=== PATIENT | female | born 1965 | race Caucasian/White ===

== ENCOUNTER 2023-05-26 14:40 | Inpatient (IN) ==
[2023-05-26 16:00] LABS: Basophils # (auto) 0.09 K/uL (0.00-0.20); Eosinophils # (auto) 0.12 K/uL (0.00-0.50); Eosinophils % (auto) 1.3 %; Hematocrit (blood only) 28.7 % (37.0-47.0); Hemoglobin 9.8 g/dl (12.0-16.0); Immature Granulocytes # (auto) 0.07 K/uL (0.01-0.20); Immature Granulocytes % (auto) 0.7 %; Lymphocytes # (auto) 1.41 K/uL (1.20-3.40); Lymphocytes % (auto) 15.1 %; Mean Corpuscular Hemoglobin 35.1 pg (25.0-34.0); Mean Corpuscular Hgb Conc 34.1 g/dL (32.0-36.0); Mean Corpuscular Volume 102.9 fL (80.0-100.0); Mean Platelet Volume 9.9 fL (9.4-12.4); Monocytes % (auto) 8.5 %; Neutrophils # (auto) 6.87 K/uL (1.40-6.50); Neutrophils % (auto) 73.4 %; Platelet Count 159 K/uL (130-400); RDW Coefficient of Variation 22.5 % (11.5-14.5); RDW Standard Deviation 82.3 fL (36.4-46.3); Red Blood Count 2.79 M/uL (4.20-5.40); White Blood Count 9.36 K/ul (4.8-10.8)
[2023-05-26 16:18] LABS: Target Cells 2+
[2023-05-26 16:33] LABS: Albumin Globulin Ratio 0.8 (0.9-2); Albumin Level 2.8 gm/dl (3.4-5.0); BUN Creatinine Ratio 4.2 (10-20); Calcium 8.5 mg/dl (8.6-10.3); Est GFR (African American) 76.6 ml/min; Est GFR (Non-African American) 66.1 ml/min; Globulin 3.3 gm/dl (2.5-4.0); Potassium 2.9 mmol/L (3.5-5.1); Total Protein 6.1 gm/dl (6.0-8.3)
[2023-05-26] MEDS ORDERED: SODIUM CHLORIDE 0.9% 1,000 ML IV ONE (19:29)
--- NOTE | 2023-05-26 19:36 | Emergency Department Note ---
Impression & Plan Weakness, Elevated bilirubin, Elevated INR, Anemia, Acute hypokalemia, Fall ED Provider Note NAME: SAWYER WEST AGE: 57 SEX: F : 1965 ARRIVES VIA: Walk-In INFORMANT: Patient ED PROVIDER(S): Michael Dumont DO CHIEF COMPLAINT: Weakness and fall HPI: Patient is a 57-year-old female who presents ER for weakness. She notes she has been very weak since this past weekend. She notes that she has been very weak and lightheaded over the past several days. She did fall and grazed her head and her right shoulder. She notes that she does drink alcohol about 3 times a week and generally has about 2-3 beers. Denies any chest pain or shortness of breath. No belly pain, nausea, vomiting, or diarrhea. No dysuria, urgency, or frequency. Does admit to feeling very weak and rundown. PAST MEDICAL HISTORY:See Below PAST SURGICAL HISTORY:See Below FAMILY HISTORY:See Below SOCIAL HISTORY:See Below HOME MEDICATIONS:See Below ALLERGIES:See Below VITALS:See Below PHYSICAL EXAMINATION: GENERAL: alert, well appearing, well nourished, no distress, non-toxic HEAD: normal cephalic, atraumatic EYE EXAM: normal conjunctiva, PERRL and EOM's grossly intact OROPHARYNX: no exudate, no erythema, lips, buccal mucosa, and tongue normal and mucous membranes are moist NECK: supple, no nuchal rigidity, no adenopathy, non-tender CHEST: stable to compression anteriorly and posteriorly with exception of bruising over the right shoulder and right scapula LUNGS: clear to auscultation. Normal chest wall mechanics HEART: no murmurs, S1 normal and S2 normal ABDOMEN: abdomen soft, non-tender, normo-active bowel sounds, no masses, no rebound or guarding. PELVIS: stable to compression anteriorly and posteriorly BACK: Back is symmetrical on inspection and there is no deformity, no midline tenderness, no CVA tenderness. UPPER EXTREMITIES: full active and passive range of motion of all joints without tenderness to palpation with the exception of the right humeral head with minimal tenderness LOWER EXTREMITIES: full active and passive range of motion of all joints without tenderness to palpation NEURO EXAM: Normal sensorium, cranial nerves II-XII grossly intact, normal speech, no gross weakness of arms, no gross weakness of legs. GCS: 15. MEDICAL DECISION MAKING: Patient is a 57-year-old female who presents ER for above-stated complaint. IV was established blood work was obtained. External records reviewed and Helga for lab work. Labs show no significant leukocytosis. Mild anemia 9.8 down from baseline of 12.5. INR slightly up at 1.8. BMP with mild hypokalemia 2.9. T. bili at 9 with a direct bili of 5. AST and ALT at [address] of the head, cervical spine, chest abdomen pelvis shows small amount of free fluid in the pelvis. Do favor that this likely ascites based on the read and abnormalities within the labs. Rectal was heme-negative. Patient was updated bedside. She was given IV potassium. Discussed with the hospitalist for further evaluation management treatment. Triage Nursing notes reviewed. Limited review of prior medical records performed Vital Signs: reviewed and remarkable for no significant abnormalities Differential diagnosis: Infection, dehydration, metabolic abnormality, hypo/hyperglycemia, electrolyte disturbance, anemia, hypoxia, cardiac sources, intracerebral event, toxicologic, neurologic, as well as other pathologies. ER treatment provided: See below Diagnostics interpreted by me include EKG and cardiac monitoring as listed below: -Cardiac Monitoring: An order was placed for continuous cardiac monitoring. The monitor shows a rate of 80 with sinus rhythm. -ECG: Sinus rhythm rate 81 Normal axis No PVCs QTc 466 -Laboratory studies:Interpreted by me as stated above in MDM and shown below. Imaging studies: Xrays: As interpreted by me:none CTs show: CT of the chest per my read showed no hemothorax CT of the head, cervical spine, chest abdomen pelvis was fairly unremarkable per radiology Consultation(s): As described in MDM Procedures:none Critical Care: None Past Med/Surg History Medical History Bacterial vaginosis Chronic migraine without aura or status migrainosus Depression with anxiety Dysmenorrhea Hypertension Menorrhagia Migraine with aura and without status migrainosus, not intractable Surgical History S/P endometrial ablation S/P hysterectomy with oophorectomy Family History Mother Migraine headache Social History Smoking Status: Current every day smoker Tobacco Type: E-cigarettes / Vaping Feels Safe at Home: Yes Allergies Allergies Allergy/AdvReac Type Severity Reaction Status Date / Time gabapentin AdvReac Intermediate Confusion Verified 05/26/23 19:18 sumatriptan [From Imitrex] AdvReac Intermediate periphel Verified 05/26/23 19:18 neuropathic symptoms zolmitriptan [From Zomig] AdvReac Intermediate periphel Verified 05/26/23 19:18 numbness and tingling Home Meds Home Medications Medication Instructions Recorded Confirmed fluoxetine 20 mg capsule 20 mg PO HS 11/06/20 05/26/23 ondansetron 4 mg disintegrating 4 mg PO DAILY PRN nausea and 02/10/23 05/26/23 tablet vomiting atenolol 100 mg tablet 100 mg PO HS 05/26/23 05/26/23 topiramate 150 mg capsule 150 mg PO HS 05/26/23 05/26/23 sprinkle,extended release 24 hr Previous Rx's Medication Instructions Recorded CPAP Machine #1 ea 08/06/22 ovgqccqvai-dqczxndefbzsi-ecombjjw 1 cap PO DAILY PRN headache #10 02/16/23 50 mg-300 mg-40 mg capsule caps rimegepant 75 mg disintegrating 75 mg PO ONCE PRN migraine 02/16/23 tablet (Nurtec ODT) headache #8 tabs onabotulinumtoxinA 200 unit See Rx Instructions IM .COMPLEX #1 04/01/23 solution for injection (Botox) ea amitriptyline 25 mg tablet 25 mg PO HS #30 tabs 05/21/23 Results & Data (ED) Vital Signs Vital Signs - 24 hr 05/26/23 14:48 05/26/23 18:50 05/26/23 18:53 Temperature 36.9 C Temperature Source Temporal Artery Scan Pulse Rate 86 Pulse Rate [Apical] 77 Pulse Rhythm [Apical] Regular Respiratory Rate 18 16 Respiratory Effort / Characteristics Non-Labored Spontaneous Non-Labored Respiratory Depth Normal Normal Respiratory Pattern Regular Blood Pressure 92/58 L Blood Pressure [Left Arm] 102/63 Blood Pressure Mean 69 Blood Pressure Mean [Left Arm] 76 Blood Pressure Position Sitting Pulse Oximetry 98 99 99 Oxygen Delivery Method Room Air Room Air Room Air Sepsis Recent Fever Within 48 Hours No Sepsis New/Unexplained Change in Mental Status N/A Sepsis Action Taken by Nursing No Action Required 05/26/23 18:52 05/26/23 18:52 05/26/23 19:39 Temperature Temperature Source Pulse Rate 77 78 Pulse Rate [Apical] Pulse Rhythm [Apical] Respiratory Rate 15 Respiratory Effort / Characteristics Respiratory Depth Respiratory Pattern Blood Pressure 102/63 102/63 Blood Pressure [Left Arm] Blood Pressure Mean 82 76 Blood Pressure Mean [Left Arm] Blood Pressure Position Pulse Oximetry Oxygen Delivery Method Sepsis Recent Fever Within 48 Hours Sepsis New/Unexplained Change in Mental Status Sepsis Action Taken by Nursing Laboratory Data 05/26/23 15:28 05/26/23 15:28 Lab Results 05/26/23 05/26/23 05/26/23 Range/Units 15:28 15:28 15:28 WBC 9.36 (4.8-10.8) K/ul RBC 2.79 L (4.20-5.40) M/uL Hgb 9.8 L (12.0-16.0) g/dl Hct 28.7 L (37.0-47.0) % MCV 102.9 H (80.0-100.0) fL MCH 35.1 H (25.0-34.0) pg MCHC 34.1 (32.0-36.0) g/dL RDW Std Deviation 82.3 H (36.4-46.3) fL RDW Coeff of Clementine 22.5 H (11.5-14.5) % Plt Count 159 (130-400) K/uL MPV 9.9 (9.4-12.4) fL Immature Gran % (Auto) 0.7 % Neut % (Auto) 73.4 % Lymph % (Auto) 15.1 % Ponce % (Auto) 8.5 % Eos % (Auto) 1.3 % Baso % (Auto) 1.0 % Neut # (Auto) 6.87 H (1.40-6.50) K/uL Lymph # (Auto) 1.41 (1.20-3.40) K/uL Ponce # (Auto) 0.80 H (0.11-0.59) K/uL Eos # (Auto) 0.12 (0.00-0.50) K/uL Baso # (Auto) 0.09 (0.00-0.20) K/uL Immature Gran # (Auto) 0.07 (0.01-0.20) K/uL Target Cells 2+ PT 18.6 H (9.0-12.0) Seconds INR 1.8 H (0.9-1.1) Sodium 136 (136-145) mmol/L Potassium 2.9 L (3.5-5.1) mmol/L Chloride 94 L (98-107) mmol/L Carbon Dioxide 32 (21-32) mmol/L Anion Gap 10 (3-11) BUN 4 L (6-23) mg/dl Creatinine 0.96 (0.6-1.2) mg/dl Est Cr Clr Drug Dosing 85.0 ml/min Est GFR ( Amer) 76.6 ml/min Est GFR (Non-Af Amer) 66.1 ml/min BUN/Creatinine Ratio 4.2 L (10-20) Glucose 147 H (70-99(Fasting)) mg/dl Calcium 8.5 L (8.6-10.3) mg/dl Magnesium 1.9 (1.7-2.4) mg/dl Total Bilirubin 9.0 H (0.2-1.0) mg/dl Direct Bilirubin 5.0 H (0-0.2) mg/dl AST 155 H (13-39) U/L ALT 45 (7-52) U/L Alkaline Phosphatase 289 H (34-104) U/L Total Protein 6.1 (6.0-8.3) gm/dl Albumin 2.8 L (3.4-5.0) gm/dl Globulin 3.3 (2.5-4.0) gm/dl Albumin/Globulin Ratio 0.8 L (0.9-2) Administered Medications Discontinued Medications Potassium Chloride (K Jose E / Wtr) 10 meq in 100 mls @ 100 mls/hr IV Q1H SHEFALI Stop: 05/26/23 21:29 Last Admin: 05/26/23 21:04 Dose: 100 mls/hr Documented By: Infusion: 05/26/23 20:38 Dose: 100 mls/hr Documented By: Admin: 05/26/23 19:38 Dose: 100 mls/hr Documented By: Sodium Chloride (Nss 1000ml) 1,000 mls @ 999 mls/hr IV .Q1H1M ONE Stop: 05/26/23 20:29 Last Infusion: 05/26/23 21:04 Dose: 0 mls/hr Documented By: Admin: 05/26/23 19:36 Dose: 999 mls/hr Documented By: Ioversol (Optiray 320 100ml) 89 ml IV ONCE ONE Stop: 05/26/23 20:01 Last Admin: 05/26/23 20:01 Dose: 89 ml Documented By: JAIRO Imaging Data Radiologist's Impression: Abdomen/Pelvis CT 05/26/23 19:28 Exam(s): CT ABDOMEN + PELVIS With Contrast IV Amt: 89ml optiray 320 EXAM: CT Abdomen and Pelvis With Intravenous Contrast CLINICAL HISTORY: Reason for exam: fall. TECHNIQUE: Axial computed tomography images of the abdomen and pelvis with intravenous contrast. CTDI is 28.14 mGy and DLP is 1542.04 mGy-cm. Automated exposure control was utilized for the study. A dose lowering technique was utilized adhering to the principles of ALARA. CONTRAST: Patient received 89ml optiray 320 of IV contrast COMPARISON: None. FINDINGS: Lung bases: Multilobar basilar atelectasis, more significant in the right lower lobe. Heart: Mild cardiomegaly. ABDOMEN: Liver: Possible mild diffuse fatty liver. Low-attenuation lesions identified within the liver, largest seen in the right liver lobe measuring up to 11.2 mm most compatible with a liver cyst. Additional smaller lesion within the right liver lobe posteriorly, too small to characterize measuring 6.5 mm. Gallbladder and bile ducts: Possible tiny sludge within the gallbladder with small stones not excluded. No ductal dilation. Pancreas: Unremarkable. No mass. No ductal dilation. Spleen: The spleen is enlarged measuring 14.8 cm. Adrenals: Unremarkable. No mass. Kidneys and ureters: Left lower renal pole stone measuring 4.7 mm. No hydronephrosis. Stomach and bowel: Thickening of the wall throughout the right colon concerning for right-sided colitis. No bowel obstruction. PELVIS: Appendix: No findings to suggest acute appendicitis. Bladder: Unremarkable. No mass. Reproductive: Anteverted uterus. ABDOMEN and PELVIS: Intraperitoneal space: Mild free fluid in the pelvis. No free air. Bones/joints: Multilevel degenerative disease of the spine, more severe at L5-S1. No acute fracture. No dislocation. Soft tissues: Unremarkable. Vasculature: Unremarkable. No abdominal aortic aneurysm. Lymph nodes: Unremarkable. No enlarged lymph nodes. IMPRESSION: 1. No evidence of visceral or intra-abdominal injury. 2. Mild diffuse fatty liver with indeterminate low-attenuation lesions, likely benign in the absence of known neoplasm. 3. Nonobstructive stone in the left kidney measuring 4.7 mm. 4. Mild free fluid as described with splenomegaly. In the context of fatty liver, cannot exclude chronic liver disease, correlation with liver function tests recommended. Electronically signed by: Katelyn Mart MD 05/26/23 21:[address] 05/26/23 19:28 Exam(s): CT CHEST With Contrast IV Amt: 89ml optiray 320 EXAM: CT Chest With Intravenous Contrast CLINICAL HISTORY: Reason for exam: fall chest wall pain. TECHNIQUE: Axial computed tomography images of the chest with intravenous contrast. CTDI is 24.13 mGy and DLP is 498.01 mGy-cm. Automated exposure control was utilized for the study. A dose lowering technique was utilized adhering to the principles of ALARA. CONTRAST: Patient received 89ml optiray 320 of IV contrast COMPARISON: None. FINDINGS: Lungs: Mild bilateral lower lobe atelectasis, more significant on the right compared to the left. Right middle lobe atelectasis. Remainder of the lung garcia are clear. Pleural space: Unremarkable. No pneumothorax. No significant effusion. Heart: Borderline cardiomegaly. No significant pericardial effusion. No significant coronary artery calcifications. Bones/joints: Unremarkable. No acute fracture. No dislocation. Soft tissues: Unremarkable. Vasculature: Unremarkable. No thoracic aortic aneurysm. Lymph nodes: Unremarkable. No enlarged lymph nodes. Liver: Low-attenuation structure within the right liver lobe with peripheral nodular enhancement measuring 2.0 cm suggestive of hemangioma. Mild diffuse fatty liver. Intraperitoneal space: Trace ascites surrounding the liver and spleen. IMPRESSION: 1. Bilateral basilar atelectasis, otherwise no acute cardiopulmonary disease. 2. No pleural effusion or pneumothorax. Electronically signed by: Katelyn Mart MD 05/26/23 20:[address] 05/26/23 19:28 Exam(s): CT HEAD Without Contrast EXAM: CT Head Without Intravenous Contrast CLINICAL HISTORY: Reason for exam: fall. TECHNIQUE: Axial computed tomography images of the head/brain without intravenous contrast. CTDI is 37.22 mGy and DLP is 624.41 mGy-cm. Automated exposure control was utilized for the study. A dose lowering technique was utilized adhering to the principles of ALARA. COMPARISON: 12/22/2022. FINDINGS: Brain: Unremarkable. No hemorrhage. No significant white matter disease. No edema. Ventricles: Unremarkable. No ventriculomegaly. Bones/joints: Unremarkable. No acute fracture. Soft tissues: Unremarkable. Sinuses: Unremarkable as visualized. No acute sinusitis. Mastoid air cells: Unremarkable as visualized. No mastoid effusion. IMPRESSION: Normal CT brain for age, stable study in the interval. Electronically signed by: Katelyn Mart MD 05/26/23 20:[address] 05/26/23 19:50 Exam(s): CT C SPINE EXAM: CT Cervical Spine Without Intravenous Contrast CLINICAL HISTORY: Reason for exam: fall. TECHNIQUE: Axial computed tomography images of the cervical spine without intravenous contrast. CTDI is 27.58 mGy and DLP is 862.93 mGy-cm. Automated exposure control was utilized for the study. A dose lowering technique was utilized adhering to the principles of ALARA. COMPARISON: None. FINDINGS: Vertebrae: Prominent osteophytosis along the anterior vertebral bodies from C5-C7 with narrowing of disc height consistent with disc degenerative disease. Degenerative disease of the anterior C1-C2 articulation, otherwise normal odontoid process. Discs/spinal canal/neural foramina: Multilevel bilateral facet hypertrophy contributing variable degrees of neuroforaminal encroachment. This is more severe on the left at C4-C5 and on the right at C3-C4. No central canal stenosis. Soft tissues: Unremarkable. Vasculature: Atherosclerotic disease involving the bilateral carotid arteries. IMPRESSION: Degenerative disease as described with no acute fracture or subluxation. Electronically signed by: Katelyn Mart MD 05/26/23 20:28 PM Discharge Plan Visit Data Chief Complaint: Abnormal Labs/Diagnostic Testing Stated Complaint: abnormal blood test ED Provider: Michael Dumont Discharge Problem: Weakness, Elevated bilirubin, Elevated INR, Anemia, Acute hypokalemia, Fall Forms Stand Alone Forms: [employer] Prescriptions Prescriptions: No Action Nurtec ODT 75 mg tablet,disintegrating 75 mg PO ONCE PRN (Reason: migraine headache) Qty: 8 6RF Rx Instructions: 75mg po once a day prn acute migraine xmxqroasql-qrgwylcoixcba-hegw 50-300-40 mg capsule 1 cap PO DAILY PRN (Reason: headache) Qty: 10 3RF Botox 200 unit recon soln See Rx Instructions IM .COMPLEX Qty: 1 3RF Rx Instructions: 155 UNITS IM IN THE FACE AND NECK MUSCLES EVERY 12 WEEKS PER MIGRAINE PROTOCOL fluoxetine 20 mg capsule 20 mg PO HS (DME) CPAP Machine Misc .Route Qty: 1 0RF Rx Instructions: 10 cm of water, mask fit to patient comfort, heated humidification, compliance download capabilities ondansetron 4 mg tablet,disintegrating 4 mg PO DAILY PRN (Reason: nausea and vomiting) amitriptyline 25 mg tablet 25 mg PO HS Qty: 30 5RF atenolol 100 mg tablet 100 mg PO HS topiramate 150 mg capsule,sprinkle,ER 24hr 150 mg PO HS Referrals Referrals: Shahab Mcmanus MD [Primary Care Provider] -
[2023-05-26] MEDS: POTASSIUM CHLORIDE / WTR 10 MEQ/100 ML PLCT IV SCH ×2 (19:38→21:04)
[2023-05-26] MEDS ORDERED: OPTIRAY 320 100ml IV ONE (20:00)
[2023-05-26 20:16] LABS: INR 1.8 (0.9-1.1); Prothrombin Time 18.6 Seconds (9.0-12.0)
[2023-05-26 20:20] LABS: Magnesium 1.9 mg/dl (1.7-2.4)
--- NOTE | 2023-05-26 20:26 | CT Scan Report ---
Exam(s): CT HEAD Without Contrast EXAM: CT Head Without Intravenous Contrast CLINICAL HISTORY: Reason for exam: fall. TECHNIQUE: Axial computed tomography images of the head/brain without intravenous contrast. CTDI is 37.22 mGy and DLP is 624.41 mGy-cm. Automated exposure control was utilized for the study. A dose lowering technique was utilized adhering to the principles of ALARA. COMPARISON: 12/22/2022. FINDINGS: Brain: Unremarkable. No hemorrhage. No significant white matter disease. No edema. Ventricles: Unremarkable. No ventriculomegaly. Bones/joints: Unremarkable. No acute fracture. Soft tissues: Unremarkable. Sinuses: Unremarkable as visualized. No acute sinusitis. Mastoid air cells: Unremarkable as visualized. No mastoid effusion. IMPRESSION: Normal CT brain for age, stable study in the interval. Electronically signed by: Katelyn Mart MD 05/26/23 20:25 PM
--- NOTE | 2023-05-26 20:29 | CT Scan Report ---
Exam(s): CT C SPINE EXAM: CT Cervical Spine Without Intravenous Contrast CLINICAL HISTORY: Reason for exam: fall. TECHNIQUE: Axial computed tomography images of the cervical spine without intravenous contrast. CTDI is 27.58 mGy and DLP is 862.93 mGy-cm. Automated exposure control was utilized for the study. A dose lowering technique was utilized adhering to the principles of ALARA. COMPARISON: None. FINDINGS: Vertebrae: Prominent osteophytosis along the anterior vertebral bodies from C5-C7 with narrowing of disc height consistent with disc degenerative disease. Degenerative disease of the anterior C1-C2 articulation, otherwise normal odontoid process. Discs/spinal canal/neural foramina: Multilevel bilateral facet hypertrophy contributing variable degrees of neuroforaminal encroachment. This is more severe on the left at C4-C5 and on the right at C3-C4. No central canal stenosis. Soft tissues: Unremarkable. Vasculature: Atherosclerotic disease involving the bilateral carotid arteries. IMPRESSION: Degenerative disease as described with no acute fracture or subluxation. Electronically signed by: Katelyn Mart MD 05/26/23 20:28 PM
--- NOTE | 2023-05-26 20:46 | CT Scan Report ---
Exam(s): CT CHEST With Contrast IV Amt: 89ml optiray 320 EXAM: CT Chest With Intravenous Contrast CLINICAL HISTORY: Reason for exam: fall chest wall pain. TECHNIQUE: Axial computed tomography images of the chest with intravenous contrast. CTDI is 24.13 mGy and DLP is 498.01 mGy-cm. Automated exposure control was utilized for the study. A dose lowering technique was utilized adhering to the principles of ALARA. CONTRAST: Patient received 89ml optiray 320 of IV contrast COMPARISON: None. FINDINGS: Lungs: Mild bilateral lower lobe atelectasis, more significant on the right compared to the left. Right middle lobe atelectasis. Remainder of the lung garcia are clear. Pleural space: Unremarkable. No pneumothorax. No significant effusion. Heart: Borderline cardiomegaly. No significant pericardial effusion. No significant coronary artery calcifications. Bones/joints: Unremarkable. No acute fracture. No dislocation. Soft tissues: Unremarkable. Vasculature: Unremarkable. No thoracic aortic aneurysm. Lymph nodes: Unremarkable. No enlarged lymph nodes. Liver: Low-attenuation structure within the right liver lobe with peripheral nodular enhancement measuring 2.0 cm suggestive of hemangioma. Mild diffuse fatty liver. Intraperitoneal space: Trace ascites surrounding the liver and spleen. IMPRESSION: 1. Bilateral basilar atelectasis, otherwise no acute cardiopulmonary disease. 2. No pleural effusion or pneumothorax. Electronically signed by: Katelyn Mart MD 05/26/23 20:45 PM
--- NOTE | 2023-05-26 21:23 | CT Scan Report ---
Exam(s): CT ABDOMEN + PELVIS With Contrast IV Amt: 89ml optiray 320 EXAM: CT Abdomen and Pelvis With Intravenous Contrast CLINICAL HISTORY: Reason for exam: fall. TECHNIQUE: Axial computed tomography images of the abdomen and pelvis with intravenous contrast. CTDI is 28.14 mGy and DLP is 1542.04 mGy-cm. Automated exposure control was utilized for the study. A dose lowering technique was utilized adhering to the principles of ALARA. CONTRAST: Patient received 89ml optiray 320 of IV contrast COMPARISON: None. FINDINGS: Lung bases: Multilobar basilar atelectasis, more significant in the right lower lobe. Heart: Mild cardiomegaly. ABDOMEN: Liver: Possible mild diffuse fatty liver. Low-attenuation lesions identified within the liver, largest seen in the right liver lobe measuring up to 11.2 mm most compatible with a liver cyst. Additional smaller lesion within the right liver lobe posteriorly, too small to characterize measuring 6.5 mm. Gallbladder and bile ducts: Possible tiny sludge within the gallbladder with small stones not excluded. No ductal dilation. Pancreas: Unremarkable. No mass. No ductal dilation. Spleen: The spleen is enlarged measuring 14.8 cm. Adrenals: Unremarkable. No mass. Kidneys and ureters: Left lower renal pole stone measuring 4.7 mm. No hydronephrosis. Stomach and bowel: Thickening of the wall throughout the right colon concerning for right-sided colitis. No bowel obstruction. PELVIS: Appendix: No findings to suggest acute appendicitis. Bladder: Unremarkable. No mass. Reproductive: Anteverted uterus. ABDOMEN and PELVIS: Intraperitoneal space: Mild free fluid in the pelvis. No free air. Bones/joints: Multilevel degenerative disease of the spine, more severe at L5-S1. No acute fracture. No dislocation. Soft tissues: Unremarkable. Vasculature: Unremarkable. No abdominal aortic aneurysm. Lymph nodes: Unremarkable. No enlarged lymph nodes. IMPRESSION: 1. No evidence of visceral or intra-abdominal injury. 2. Mild diffuse fatty liver with indeterminate low-attenuation lesions, likely benign in the absence of known neoplasm. 3. Nonobstructive stone in the left kidney measuring 4.7 mm. 4. Mild free fluid as described with splenomegaly. In the context of fatty liver, cannot exclude chronic liver disease, correlation with liver function tests recommended. Electronically signed by: Katelyn Mart MD 05/26/23 21:22 PM
--- NOTE | 2023-05-26 22:37 | History & Physical Report ---
Date of Service May 26, 2023 Assessment & Plan (1) Weakness: Plan: 57 year old female admitted for weakness, hypokalemia, hyperbilirubinemia. Weakness/Hypokalemia: -Unable to eat or drink well past few weeks to month due to sarthak-oral rash. -Hgb 9.8, MCV 102.9, K 2.9. -Recent fall due to weakness. Day scan CT w/o any acute abnormalities from the fall. -Most likely has iron deficiency anemia, hypokalemia from poor nutrition. -Drinks 1-2 12oz alcoholic beverages per day - question of alcohol contribution. -Replenished 20meq IV K+ in ED. Will give 2 bags of NSS + 20meq KCl, recheck BMP in the AM. -PT/OT consulted for eval and treat. -Admit to med/tele. Elevated Bilirubin/INR/transaminitis: -INR 1.8, T bili 9.0, D bili 5.0, AST 155, ALT 45, Alk phos 289. -Alcohol level <10, ammonia 92. -CT A&P evidence of injury, mild diffuse fatty liver with indeterminate low attenuation lesions, likely benign in absence of known neoplasm, nonobstructive 4.7mm kidney stone in L kidney, mild free fluid as described w/ splenomegaly, cannot exclude chronic liver disease. -[facility] records yield 1.7-2.1, AST 150-169, ALT 35-48. -Unknown origin for hyperbilirubinemia and transaminitis. -May be secondary to alcohol use, fatty liver, PBC. -Will order hepatitis panel, antimitochondrial antibody, CHER. -Consulted GI, will appreciate recs. -AM CMP. Fall: -Bruising seen on exam at R shoulder and on head. -No acute processes on CT day scan. -Continue to monitor control pain with PRN Tylenol. Peripheral neuropathy: -Hgb 9.8, MCV 102.9, B12 and Folate WNL. -May be secondary to rheumatologic or diabetic process. -EMG ordered by neurology. -Started on amitriptyline by Neuro recently. -Continue to monitor. Migraine/Depression/Anxiety/HTN: -Continue home medications. F/E/N/GI: Regular. DVT Prophylaxis: SCD Code status: Full code Dispo: Med/tele. (2) Elevated bilirubin: (3) Elevated INR: (4) Anemia: (5) Acute hypokalemia: (6) Fall: (7) Peripheral neuropathy: (8) Hypertension: (9) Migraine without aura, not intractable, without status migrainosus: (10) Depression with anxiety: (11) Excessive somnolence disorder: (12) Sleep apnea: History of Present Illness Chief Complaint: Weakness, hypokalemia Primary Care Provider: Shahab Mcmanus MD Kaity is a 57 year old female with past medical history of migraine, osteoarthritis of the knees, prediabetes, tobacco use, benign hypertension coming in at direction of his PCP office. I had seen patient in the office Wednesday of last week (05/21) where patient had complained of fatigue, weakness, sarthak-oral rash, peripheral neuropathy. She told me back in February she had new CPAP supplies ordered that were incorrect, she had still used them but developed a sarthak-oral rash that looked like a burn rash and was very painful for her. She used some Vaseline which improved the area initially but had spread a little bit and not gotten totally better. This had in turn caused her to not intake very much to eat, especially in recent weeks. As a result she had felt very weak and was only able to get down liquid type foods. She also developed peripheral neuropathy over the past couple months at the bilateral feet, wrapping around the whole foot on both sides up to the ankle. She states at times feels like pins and needles, at times painful for her and she has to hang her feet off the bed - affected her mostly at night. She had seen Dr. Ingram after our appointment who started her on amitriptyline and ordered some autoimmune labs. Over the weekend she had sustained a fall where she fell onto her R shoulder and then L back and also hit her head without losing consciousness. She has not had much change since I saw her in office on Wednesday with persistence of the weakness, general fatigue, and peripheral neuropathy. Her perioral rash has gotten better with low potency triamcinolone 0.025% I prescribed her on Wednesday. Denies shortness of breath, chest pain, fevers, chills, diarrhea, constipation, a bdominal pain. Patient states she has not had any obvious signs of bleeding, no blood per rectum, urine, or vaginal bleeding - she is post-menopausal. Outpatient labs: CBC with WBC 10.67, Hgb 9.8, MCV 102.8, plt 150; BMP w/ Na 137, K 2.8, creat 1.02, glucose 150, Mg 1.9, B12 887, Folate 9.3, Serum protein 6.3, RF <10, IgG 1,650 (H), IgM 188 (normal), IgA 791 (H), CRP 7.32, ESR 63. She did not have the energy for the 2 hour glucose test that was ordered. In the ED she was given 20meq IV K+, 1L NSS. CT Head and Cervical neck w/o any acute processes, CT Chest w/ bilateral basilar atelectasis, otherwise no acute processes; CT A&P w/o evidence of injury, mild diffuse fatty liver with indeterminate low attenuation lesions, likely benign in absence of known neoplasm, nonobstructive 4.7mm kidney stone in L kidney, mild free fluid as described w/ splenomegaly, cannot exclude chronic liver disease. Allergies Allergy/AdvReac Type Severity Reaction Status Date / Time gabapentin AdvReac Intermediate Confusion Verified 05/26/23 19:18 sumatriptan [From Imitrex] AdvReac Intermediate periphel Verified 05/26/23 19:18 neuropathic symptoms zolmitriptan [From Zomig] AdvReac Intermediate periphel Verified 05/26/23 19:18 numbness and tingling Home Medications Medication Instructions Recorded Confirmed Type fluoxetine 20 mg capsule 20 mg PO HS 11/06/20 05/26/23 History CPAP Machine #1 ea 08/06/22 05/26/23 Rx ondansetron 4 mg disintegrating 4 mg PO DAILY PRN nausea and 02/10/23 05/26/23 History tablet vomiting fnvqkhdxiz-bfsupevpwwcpt-qmxsvusy 1 cap PO DAILY PRN headache #10 02/16/23 05/26/23 Rx 50 mg-300 mg-40 mg capsule caps rimegepant 75 mg disintegrating 75 mg PO ONCE PRN migraine 02/16/23 05/26/23 Rx tablet (Nurtec ODT) headache #8 tabs onabotulinumtoxinA 200 unit See Rx Instructions IM .COMPLEX #1 04/01/23 05/26/23 Rx solution for injection (Botox) ea amitriptyline 25 mg tablet 25 mg PO HS #30 tabs 05/21/23 05/26/23 Rx atenolol 100 mg tablet 100 mg PO HS 05/26/23 05/26/23 History topiramate 150 mg capsule 150 mg PO HS 05/26/23 05/26/23 History sprinkle,extended release 24 hr Past Med/Surg History Medical History Bacterial vaginosis Chronic migraine without aura or status migrainosus Depression with anxiety Dysmenorrhea Hypertension Menorrhagia Migraine with aura and without status migrainosus, not intractable Surgical History S/P endometrial ablation S/P hysterectomy with oophorectomy Family History Mother Migraine headache Social History Smoking Status: Current every day smoker Tobacco Type: E-cigarettes / Vaping Do You Dip or Chew Tobacco: No; Hx Alcohol Use: Yes Alcohol type: beer Hx Substance Use: No Preferred Language: Mauritanian Communication Ability: Effective Engineering Consultant Required: No Beliefs That Will Affect Care: None Current Living Situation: Spouse Other Information That Helps Us Care for You: No Feels Safe at Home: Yes Safety Concerns: Feels Safe At This Time Assistive Devices: Glasses Review of Systems Review of Systems: As per HPI. Physical Exam Constitutional: WD/WN, vitals as above Eyes: PERRL, conjunctivae normal, anicteric sclerae Respiratory: Bibasilar minor inspiratory crackle (2-3), otherwise clear to auscultation. Cardiovascular: RRR, no murmur, no edema Gastrointestinal (Abdomen): normal bowel sounds, soft, nontender, no hepatosplenomegaly Skin: Perioral rash erythematous non raised, appearing mildly improved from exam of 05/21. Neurologic: Tingling feeling elicited with sensory exam, proprioception in tact. Psychiatric: A+Ox3, euthymic affect Results & Data Results & Data Vital Signs (Past 12 Hours) Vital Signs Temp Pulse Pulse Resp BP BP Pulse Ox 05/26/23 19:39 78 05/26/23 18:52 77 15 102/63 05/26/23 18:52 102/63 05/26/23 18:53 99 05/26/23 18:50 77 16 102/63 99 05/26/23 14:48 36.9 C 86 18 92/58 L 98 O2 Del Method 05/26/23 19:39 05/26/23 18:52 05/26/23 18:52 05/26/23 18:53 Room Air 05/26/23 18:50 Room Air 05/26/23 14:48 Room Air Supervising Physician Co-Signing Physician Notes Attending addendum: I have physically seen this patient, have supervised the medical residents activities, and agree with the H&P unless as otherwise noted. Assessment and Plan: Mild diffuse fatty liver- More acute worsening of abnormal LFTs Transaminases similar in elevation to previous noted NSTEMI Bilirubin was significantly elevated to 9.0 direct bilirubin 5.0 Differential including but not limited to alcohol use, infectious hepatitis, fatty liver progression, primary biliary cirrhosis, autoimmune hepatitis Ordering alcohol level urine drug screen, hepatitis panel, AMA, CHER Follow serial CBC with differential, chemistry profile and magnesium levels Consult gastroenterology Hypokalemia- Acid 2.[address] IV, and recheck laboratories in a.m. Peripheral neuropathy Being treated by neurology Remaining orders and notations as noted Resident Activity Tracking Resident Involvement: Resident Care Provided Care Provided: Adult Hospital Medicine
[2023-05-26 23:58] LABS: Ferritin 1460.8 ng/ml (8-388)
[2023-05-27] MEDS ORDERED: BUTALBITAL/ACETAMIN/CAFFEINE TAB PO PRN (01:42)
[2023-05-27] MEDS ORDERED: ACETAMINOPHEN 325 MG TAB PO PRN (01:42)
[2023-05-27] MEDS: NSS + 20MEQ KCL 20 MEQ/1,000 ML BAG IV SCH ×2 (03:33→10:14)
[2023-05-27] MEDS ORDERED: AMITRIPTYLINE HCL 25 MG TAB PO ONE (03:43)
[2023-05-27 05:14] LABS: Basophils # (auto) 0.06 K/uL (0.00-0.20); Basophils % (auto) 0.7 %; Eosinophils # (auto) 0.13 K/uL (0.00-0.50); Eosinophils % (auto) 1.5 %; Hemoglobin 8.4 g/dl (12.0-16.0); Immature Granulocytes # (auto) 0.06 K/uL (0.01-0.20); Immature Granulocytes % (auto) 0.7 %; Lymphocytes # (auto) 1.73 K/uL (1.20-3.40); Lymphocytes % (auto) 19.6 %; Mean Corpuscular Hemoglobin 35.4 pg (25.0-34.0); Mean Corpuscular Volume 101.3 fL (80.0-100.0); Mean Platelet Volume 10.1 fL (9.4-12.4); Monocytes # (auto) 0.81 K/uL (0.11-0.59); Monocytes % (auto) 9.2 %; Neutrophils # (auto) 6.03 K/uL (1.40-6.50); Neutrophils % (auto) 68.3 %; Platelet Count 142 K/uL (130-400); RDW Coefficient of Variation 23.4 % (11.5-14.5); RDW Standard Deviation 82.7 fL (36.4-46.3); Red Blood Count 2.37 M/uL (4.20-5.40); White Blood Count 8.82 K/ul (4.8-10.8)
[2023-05-27 05:25] LABS: Est GFR (African American) 74.7 ml/min; Potassium 3.1 mmol/L (3.5-5.1)
[2023-05-27 05:26] LABS: Albumin Globulin Ratio 0.9 (0.9-2); Albumin Level 2.3 gm/dl (3.4-5.0); BUN Creatinine Ratio 6.1 (10-20); Bilirubin,Total 8.5 mg/dl (0.2-1.0); C Reactive Protein 7.46 mg/dl (0-0.5); Calcium 7.7 mg/dl (8.6-10.3); Creatinine Clr Calc Pharmacy 84.7 ml/min; Est GFR (Non-African American) 64.5 ml/min; Globulin 2.6 gm/dl (2.5-4.0); Total Protein 4.9 gm/dl (6.0-8.3)
[2023-05-27 05:38] LABS: Prothrombin Time 21.3 Seconds (9.0-12.0)
[2023-05-27 06:20] LABS: Anisocytosis Present; Polychromasia 1+; Target Cells 1+
--- NOTE | 2023-05-27 07:24 | Hospitalist Progress Note ---
Date of Service May 27, 2023 Assessment & Plan (1) Weakness: Plan: 57 year old female admitted for weakness, hypokalemia and hyperbilirubinemia. Elevated Bilirubin/INR/transaminitis: -INR 1.8, T bili 9.0, D bili 5.0, AST 155, ALT 45, Alk phos 289. -Alcohol level <10, ammonia 92. -CT A&P evidence of injury, mild diffuse fatty liver with indeterminate low attenuation lesions, likely benign in absence of known neoplasm, nonobstructive 4.7mm kidney stone in L kidney, mild free fluid as described w/ splenomegaly, cannot exclude chronic liver disease. -Unknown origin for hyperbilirubinemia and transaminitis -May be secondary to alcohol use, fatty liver, PBC, dysmetabolic -Pending: hepatitis panel, antimitochondrial antibody, CHER. -Consulted GI, will appreciate recs. -lipid panel and HgbA1C -Will order Vitamin K supplementation Will follow am labs Weakness/Hypokalemia: -Unable to eat or drink well past few weeks to month due to sarthak-oral rash.Recent fall due to weakness -K : 3.1 s/replaced with 2 bags of NSS + 20meq KCl potassium 40 meq replaced today -Most likely has iron deficiency anemia, hypokalemia from poor nutrition. -Drinks 1-2 12oz alcoholic beverages per day - question of alcohol contribution. -Replenished 20meq IV K+ in ED. Will give 2 bags of NSS + 20meq KCl, recheck BMP in the AM. -PT/OT consulted for eval and treat. Fall: -Bruising seen on exam at R shoulder and on head. -No acute processes on CT day scan. -Continue to monitor control pain with PRN Tylenol. Peripheral neuropathy: -Hgb 9.8, MCV 102.9, B12 and Folate WNL. -May be secondary to rheumatologic or diabetic process. -EMG ordered by neurology. -Started on amitriptyline 25 mg by Neuro recently. -Continue to monitor. Migraine/Depression/Anxiety/HTN: -Continue home medications. F/E/N/GI: Regular. DVT Prophylaxis: SCD Code status: Full code Dispo: Med/tele. (2) Elevated bilirubin: (3) Elevated INR: (4) Anemia: (5) Acute hypokalemia: (6) Fall: (7) Peripheral neuropathy: (8) Hypertension: (9) Migraine without aura, not intractable, without status migrainosus: (10) Depression with anxiety: (11) Excessive somnolence disorder: (12) Sleep apnea: Admission and Anticipated Discharge Date Admission Date: May 26, 2023 Supervising Physician Co-Signing Physician Notes I personally examined the patient and verified all arellano points of history and exam, discussed case, and agree with decision making with Dr Coy Aguirre Feeling okay just very tired. Vitals noted, in general she is awake and alert fatigued but no distress. Breathing unlabored no accessory muscle use good effort. Skin was jaundiced. Labs noted, imaging noted. Advanced liver diseasecertainly concern on alcohol (as this would also tie together her neuropathy) versus nonalcoholic fatty liver disease versus both. Less likely viral hepatitis, or othercheck lipids and A1c, hepatitis panel pending, educated on alcohol cessation regardless of her intake. Give vitamin K to see if her INR improves. Likely will largely be setting up for close follow- up, risk mitigation/harm reduction, and outpatient care (including potentially transplant work-up if this does not improve over time) suspect fatigue is related to liver disease. Otherwise as above Subjective Kaity is a 57 year old female with past medical history of migraine, osteoarthritis of the knees, prediabetes, tobacco use, benign hypertension coming in at direction of his PCP office. Patient was seen in the office Wednesday of last week (05/21) where patient had com plained of fatigue, weakness, sarthak-oral rash, peripheral neuropathy. She developed a perioral rash that looked like a burn rash and was very painful for her, had spread a little bit and not gotten totally better. This had in turn caused her to not intake very much to eat, especially in recent weeks. As a result she had felt very weak and was only able to get down liquid type foods. She also developed peripheral neuropathy over the past couple months at the bilateral feet, wrapping around the whole foot on both sides up to the ankle. She states at times feels like pins and needles, at times painful for her and she has to hang her feet off the bed - affected her mostly at night. She had seen Dr. Ingram after our appointment who started her on amitriptyline and ordered some autoimmune labs. Over the weekend she had sustained a fall where she fell onto her R shoulder and then L back and also hit her head without losing consciousness. She has not had much change since I saw her in office on Wednesday with persistence of the weakness, general fatigue, and peripheral neuropathy. Her perioral rash has gotten better with low potency triamcinolone 0.025% I prescribed her on Wednesday. Denies shortness of breath, chest pain, fevers, chills, diarrhea, constipation, abdominal pain. Patient states she has not had any obvious signs of bleeding, no blood per rectum, urine, or vaginal bleeding - she is post-menopausal. Review of Systems Review of Systems: As per HPI. Physical Exam Constitutional: WD/WN, vitals as above Eyes: PERRL, conjunctivae normal, anicteric sclerae Respiratory: Bibasilar minor inspiratory crackle (2-3), otherwise clear to auscultation. Cardiovascular: RRR, no murmur, no edema Gastrointestinal (Abdomen): normal bowel sounds, soft, nontender, no hepatosplenomegaly Skin: Perioral rash erythematous non raised, appearing mildly improved from exam of 05/21. Jaundice Neurologic: Tingling feeling elicited with sensory exam, proprioception in tact. Psychiatric: A+Ox3, euthymic affect Results & Data Results & Data Vital Signs (Past 12 Hours) Vital Signs Temp Pulse Pulse Resp BP BP Pulse Ox 05/27/23 07:01 82 05/27/23 04:07 100 H 18 93/60 L 96 05/27/23 02:02 37.1 C 80 15 91/59 L 97 05/27/23 00:57 95/54 L 05/27/23 00:57 76 14 97 05/27/23 00:00 76 18 05/26/23 23:34 76 05/26/23 19:39 78 O2 Del Method 05/27/23 07:01 05/27/23 04:07 Room Air 05/27/23 02:02 Room Air 05/27/23 00:57 05/27/23 00:57 Room Air 05/27/23 00:00 05/26/23 23:34 05/26/23 19:39 Resident Activity Tracking Resident Involvement: Resident Care Provided Care Provided: Adult [facility]
[2023-05-27] MEDS ORDERED: POTASSIUM CHLORIDE CRTAB 20 MEQ TABCR PO STA (07:31)
[2023-05-27] MEDS: TRIAMCINOLONE ACET 0.025% CR 15 GM TUBE EXT SCH ×2 (08:36→22:53)
[2023-05-27] MEDS ORDERED: PHYTONADIONE 5 MG TAB PO STA (09:37)
--- NOTE | 2023-05-27 16:58 | Gastrointestinal Consultation ---
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 I can't explain the rapid rise but her INR is prolonged and her ammonia level is high suggesting more advanced process. Not much to do about this in hospital and will need to be addressed as an outpatient. I am out of town starting tomorrow. Dr. Damon will round,. History of Present Illness Reason for Consultation: abnormal lfts Attending Physician: Michael Neely DO History of Present Illness 57 year old female admitted with weakness. She was found to have elevated LFTs. She tells me that they have been elevated the last three times they have been checked. She has not seen a GI doc or underwriting support specialist about these. She does admit to alcohol intake of "3-4" three or four times a week. On admit her ammonia was elevated as well. She has had issues with mouth ulcers related to poor fitting cpap and has not been eating because of that. She has no other knowledge about her liver disease. She has not had screening colonoscopy Allergies Allergy/AdvReac Type Severity Reaction Status Date / Time gabapentin AdvReac Intermediate Confusion Verified 05/26/23 19:18 sumatriptan [From Imitrex] AdvReac Intermediate periphel Verified 05/26/23 19:18 neuropathic symptoms zolmitriptan [From Zomig] AdvReac Intermediate periphel Verified 05/26/23 19:18 numbness and tingling Home Medications Medication Instructions Recorded Confirmed Type fluoxetine 20 mg capsule 20 mg PO HS 11/06/20 05/26/23 History CPAP Machine #1 ea 08/06/22 05/26/23 Rx ondansetron 4 mg disintegrating 4 mg PO DAILY PRN nausea and 02/10/23 05/26/23 History tablet vomiting bkqwlgkttw-kikappniatcrq-lpohsmss 1 cap PO DAILY PRN headache #10 02/16/23 05/26/23 Rx 50 mg-300 mg-40 mg capsule caps rimegepant 75 mg disintegrating 75 mg PO ONCE PRN migraine 02/16/23 05/26/23 Rx tablet (Nurtec ODT) headache #8 tabs onabotulinumtoxinA 200 unit See Rx Instructions IM .COMPLEX #1 04/01/23 05/26/23 Rx solution for injection (Botox) ea amitriptyline 25 mg tablet 25 mg PO HS #30 tabs 05/21/23 05/26/23 Rx atenolol 100 mg tablet 100 mg PO HS 05/26/23 05/26/23 History topiramate 150 mg capsule 150 mg PO HS 05/26/23 05/26/23 History sprinkle,extended release 24 hr Patient History Medical History Bacterial vaginosis Chronic migraine without aura or status migrainosus Depression with anxiety Dysmenorrhea Hypertension Menorrhagia Migraine with aura and without status migrainosus, not intractable Surgical History S/P endometrial ablation S/P hysterectomy with oophorectomy Family History Mother Migraine headache Social History Smoking Status: Current every day smoker Tobacco Type: E-cigarettes / Vaping Do You Dip or Chew Tobacco: No; Hx Alcohol Use: Yes Alcohol type: beer Hx Substance Use: No Preferred Language: [place]dean Communication Ability: Effective Vice Principal Required: No Beliefs That Will Affect Care: None Current Living Situation: Spouse Other Information That Helps Us Care for You: No Feels Safe at Home: Yes Safety Concerns: Feels Safe At This Time Assistive Devices: Glasses Review of Systems Review of Systems: All systems reviewed & are unremarkable except as noted in HPI & below Physical Exam Constitutional: WD/WN, vitals as above no acute distress Eyes: PERRL, conjunctivae normal, anicteric sclerae ENMT: external ear and nose normal, oropharynx normal Neck: trachea midline, no thyromegaly Respiratory: normal respiratory effort, lungs clear to auscultation Cardiovascular: RRR, no murmur, no edema Gastrointestinal (Abdomen): normal bowel sounds, soft, nontender, no hepatosplenomegaly Musculoskeletal: Extremities: no cyanosis and no clubbing Skin: no rashes, warm and dry Neurologic: PERRL, EOMI, accommodation nl, no face palsy, no dysarthria Psychiatric: Orientation: alert and oriented x 3 Results & Data Vital Signs (Past 12 Hours) Vital Signs Pulse Pulse Resp BP BP Pulse Ox O2 Del Method 05/27/23 15:02 84 19 102/61 93 Room Air 05/27/23 11:45 84 16 95/56 L 95 Room Air 05/27/23 10:15 87 16 94/59 L 92 Room Air 05/27/23 08:37 84 18 104/70 97 Room Air 05/27/23 07:01 82 Laboratory Results 05/27/23 05/27/23 05/27/23 Range/Units 04:42 04:42 04:42 WBC 8.82 (4.8-10.8) K/ul RBC 2.37 L (4.20-5.40) M/uL Hgb 8.4 L (12.0-16.0) g/dl Hct 24.0 L (37.0-47.0) % MCV 101.3 H (80.0-100.0) fL MCH 35.4 H (25.0-34.0) pg MCHC 35.0 (32.0-36.0) g/dL RDW Std Deviation 82.7 H (36.4-46.3) fL RDW Coeff of Clementine 23.4 H (11.5-14.5) % Plt Count 142 (130-400) K/uL MPV 10.1 (9.4-12.4) fL Immature Gran % (Auto) 0.7 % Neut % (Auto) 68.3 % Lymph % (Auto) 19.6 % Lyman % (Auto) 9.2 % Eos % (Auto) 1.5 % Baso % (Auto) 0.7 % Neut # (Auto) 6.03 (1.40-6.50) K/uL Lymph # (Auto) 1.73 (1.20-3.40) K/uL Lyman # (Auto) 0.81 H (0.11-0.59) K/uL Eos # (Auto) 0.13 (0.00-0.50) K/uL Baso # (Auto) 0.06 (0.00-0.20) K/uL Immature Gran # (Auto) 0.06 (0.01-0.20) K/uL Polychromasia 1+ Anisocytosis Present Target Cells 1+ PT 21.3 H (9.0-12.0) Seconds INR 2.0 H (0.9-1.1) Sodium 136 (136-145) mmol/L Potassium 3.1 L (3.5-5.1) mmol/L Chloride 99 (98-107) mmol/L Carbon Dioxide 33 H (21-32) mmol/L Anion Gap 4 (3-11) BUN 6 (6-23) mg/dl Creatinine 0.98 (0.6-1.2) mg/dl Est Cr Clr Drug Dosing 84.7 ml/min Est GFR ( Amer) 74.7 ml/min Est GFR (Non-Af Amer) 64.5 ml/min BUN/Creatinine Ratio 6.1 L (10-20) Glucose 108 H (70-99(Fasting)) mg/dl Calcium 7.7 L (8.6-10.3) mg/dl Magnesium (1.7-2.4) mg/dl Iron (35-150) mcg/dl Ferritin (8-388) ng/ml Total Bilirubin 8.5 H (0.2-1.0) mg/dl Direct Bilirubin (0-0.2) mg/dl AST 119 H (13-39) U/L ALT 36 (7-52) U/L Alkaline Phosphatase 229 H (34-104) U/L Ammonia (18-72) umol/L C-Reactive Protein 7.46 H (0-0.5) mg/dl Total Protein 4.9 L D (6.0-8.3) gm/dl Albumin 2.3 L (3.4-5.0) gm/dl Globulin 2.6 (2.5-4.0) gm/dl Albumin/Globulin Ratio 0.9 (0.9-2) Ethyl Alcohol mg/dL (<10.0) mg/dl CHER Screen Anti-Mitochondrial Ab Hepatitis A IgM Ab Hep Bs Antigen Hep Bs Ag Confirmation Hep B Core IgM Ab Hepatitis C Ab (EIA) 05/26/23 05/26/23 05/26/23 Range/Units 22:50 22:50 22:50 WBC (4.8-10.8) K/ul RBC (4.20-5.40) M/uL Hgb (12.0-16.0) g/dl Hct (37.0-47.0) % MCV (80.0-100.0) fL MCH (25.0-34.0) pg MCHC (32.0-36.0) g/dL RDW Std Deviation (36.4-46.3) fL RDW Coeff of Clementine (11.5-14.5) % Plt Count (130-400) K/uL MPV (9.4-12.4) fL Immature Gran % (Auto) % Neut % (Auto) % Lymph % (Auto) % Lyman % (Auto) % Eos % (Auto) % Baso % (Auto) % Neut # (Auto) (1.40-6.50) K/uL Lymph # (Auto) (1.20-3.40) K/uL Lyman # (Auto) (0.11-0.59) K/uL Eos # (Auto) (0.00-0.50) K/uL Baso # (Auto) (0.00-0.20) K/uL Immature Gran # (Auto) (0.01-0.20) K/uL Polychromasia Anisocytosis Target Cells PT (9.0-12.0) Seconds INR (0.9-1.1) Sodium (136-145) mmol/L Potassium (3.5-5.1) mmol/L Chloride (98-107) mmol/L Carbon Dioxide (21-32) mmol/L Anion Gap (3-11) BUN (6-23) mg/dl Creatinine (0.6-1.2) mg/dl Est Cr Clr Drug Dosing ml/min Est GFR ( Amer) ml/min Est GFR (Non-Af Amer) ml/min BUN/Creatinine Ratio (10-20) Glucose (70-99(Fasting)) mg/dl Calcium (8.6-10.3) mg/dl Magnesium (1.7-2.4) mg/dl Iron 83 (35-150) mcg/dl Ferritin 1460.8 H (8-388) ng/ml Total Bilirubin (0.2-1.0) mg/dl Direct Bilirubin (0-0.2) mg/dl AST (13-39) U/L ALT (7-52) U/L Alkaline Phosphatase (34-104) U/L Ammonia (18-72) umol/L C-Reactive Protein (0-0.5) mg/dl Total Protein (6.0-8.3) gm/dl Albumin (3.4-5.0) gm/dl Globulin (2.5-4.0) gm/dl Albumin/Globulin Ratio (0.9-2) Ethyl Alcohol mg/dL < 10.0 (<10.0) mg/dl CHER Screen Pending Anti-Mitochondrial Ab Pending Hepatitis A IgM Ab Pending Hep Bs Antigen Pending Hep Bs Ag Confirmation Pending Hep B Core IgM Ab Pending Hepatitis C Ab (EIA) Pending 05/26/23 05/26/23 05/26/23 Range/Units 22:50 15:28 15:28 WBC (4.8-10.8) K/ul RBC (4.20-5.40) M/uL Hgb (12.0-16.0) g/dl Hct (37.0-47.0) % MCV (80.0-100.0) fL MCH (25.0-34.0) pg MCHC (32.0-36.0) g/dL RDW Std Deviation (36.4-46.3) fL RDW Coeff of Clementine (11.5-14.5) % Plt Count (130-400) K/uL MPV (9.4-12.4) fL Immature Gran % (Auto) % Neut % (Auto) % Lymph % (Auto) % Lyman % (Auto) % Eos % (Auto) % Baso % (Auto) % Neut # (Auto) (1.40-6.50) K/uL Lymph # (Auto) (1.20-3.40) K/uL Lyman # (Auto) (0.11-0.59) K/uL Eos # (Auto) (0.00-0.50) K/uL Baso # (Auto) (0.00-0.20) K/uL Immature Gran # (Auto) (0.01-0.20) K/uL Polychromasia Anisocytosis Target Cells PT 18.6 H (9.0-12.0) Seconds INR 1.8 H (0.9-1.1) Sodium (136-145) mmol/L Potassium (3.5-5.1) mmol/L Chloride (98-107) mmol/L Carbon Dioxide (21-32) mmol/L Anion Gap (3-11) BUN (6-23) mg/dl Creatinine (0.6-1.2) mg/dl Est Cr Clr Drug Dosing ml/min Est GFR ( Amer) ml/min Est GFR (Non-Af Amer) ml/min BUN/Creatinine Ratio (10-20) Glucose (70-99(Fasting)) mg/dl Calcium (8.6-10.3) mg/dl Magnesium 1.9 (1.7-2.4) mg/dl Iron (35-150) mcg/dl Ferritin (8-388) ng/ml Total Bilirubin (0.2-1.0) mg/dl Direct Bilirubin 5.0 H (0-0.2) mg/dl AST (13-39) U/L ALT (7-52) U/L Alkaline Phosphatase (34-104) U/L Ammonia 92.0 H (18-72) umol/L C-Reactive Protein (0-0.5) mg/dl Total Protein (6.0-8.3) gm/dl Albumin (3.4-5.0) gm/dl Globulin (2.5-4.0) gm/dl Albumin/Globulin Ratio (0.9-2) Ethyl Alcohol mg/dL (<10.0) mg/dl CHER Screen Anti-Mitochondrial Ab Hepatitis A IgM Ab Hep Bs Antigen Hep Bs Ag Confirmation Hep B Core IgM Ab Hepatitis C Ab (EIA) Diagnostic Findings Abdomen/Pelvis CT 05/26/23 19:28 Exam(s): CT ABDOMEN + PELVIS With Contrast IV Amt: 89ml optiray 320 EXAM: CT Abdomen and Pelvis With Intravenous Contrast CLINICAL HISTORY: Reason for exam: fall. TECHNIQUE: Axial computed tomography images of the abdomen and pelvis with intravenous contrast. CTDI is 28.14 mGy and DLP is 1542.04 mGy-cm. Automated exposure control was utilized for the study. A dose lowering technique was utilized adhering to the principles of ALARA. CONTRAST: Patient received 89ml optiray 320 of IV contrast COMPARISON: None. FINDINGS: Lung bases: Multilobar basilar atelectasis, more significant in the right lower lobe. Heart: Mild cardiomegaly. ABDOMEN: Liver: Possible mild diffuse fatty liver. Low-attenuation lesions identified within the liver, largest seen in the right liver lobe measuring up to 11.2 mm most compatible with a liver cyst. Additional smaller lesion within the right liver lobe posteriorly, too small to characterize measuring 6.5 mm. Gallbladder and bile ducts: Possible tiny sludge within the gallbladder with small stones not excluded. No ductal dilation. Pancreas: Unremarkable. No mass. No ductal dilation. Spleen: The spleen is enlarged measuring 14.8 cm. Adrenals: Unremarkable. No mass. Kidneys and ureters: Left lower renal pole stone measuring 4.7 mm. No hydronephrosis. Stomach and bowel: Thickening of the wall throughout the right colon concerning for right-sided colitis. No bowel obstruction. PELVIS: Appendix: No findings to suggest acute appendicitis. Bladder: Unremarkable. No mass. Reproductive: Anteverted uterus. ABDOMEN and PELVIS: Intraperitoneal space: Mild free fluid in the pelvis. No free air. Bones/joints: Multilevel degenerative disease of the spine, more severe at L5-S1. No acute fracture. No dislocation. Soft tissues: Unremarkable. Vasculature: Unremarkable. No abdominal aortic aneurysm. Lymph nodes: Unremarkable. No enlarged lymph nodes. IMPRESSION: 1. No evidence of visceral or intra-abdominal injury. 2. Mild diffuse fatty liver with indeterminate low-attenuation lesions, likely benign in the absence of known neoplasm. 3. Nonobstructive stone in the left kidney measuring 4.7 mm. 4. Mild free fluid as described with splenomegaly. In the context of fatty liver, cannot exclude chronic liver disease, correlation with liver function tests recommended. Electronically signed by: Katelyn Mart MD 05/26/23 21:[address] 05/26/23 19:28 Exam(s): CT CHEST With Contrast IV Amt: 89ml optiray 320 EXAM: CT Chest With Intravenous Contrast CLINICAL HISTORY: Reason for exam: fall chest wall pain. TECHNIQUE: Axial computed tomography images of the chest with intravenous contrast. CTDI is 24.13 mGy and DLP is 498.01 mGy-cm. Automated exposure control was utilized for the study. A dose lowering technique was utilized adhering to the principles of ALARA. CONTRAST: Patient received 89ml optiray 320 of IV contrast COMPARISON: None. FINDINGS: Lungs: Mild bilateral lower lobe atelectasis, more significant on the right compared to the left. Right middle lobe atelectasis. Remainder of the lung garcia are clear. Pleural space: Unremarkable. No pneumothorax. No significant effusion. Heart: Borderline cardiomegaly. No significant pericardial effusion. No significant coronary artery calcifications. Bones/joints: Unremarkable. No acute fracture. No dislocation. Soft tissues: Unremarkable. Vasculature: Unremarkable. No thoracic aortic aneurysm. Lymph nodes: Unremarkable. No enlarged lymph nodes. Liver: Low-attenuation structure within the right liver lobe with peripheral nodular enhancement measuring 2.0 cm suggestive of hemangioma. Mild diffuse fatty liver. Intraperitoneal space: Trace ascites surrounding the liver and spleen. IMPRESSION: 1. Bilateral basilar atelectasis, otherwise no acute cardiopulmonary disease. 2. No pleural effusion or pneumothorax. Electronically signed by: Katelyn Mart MD 05/26/23 20:[address] 05/26/23 19:28 Exam(s): CT HEAD Without Contrast EXAM: CT Head Without Intravenous Contrast CLINICAL HISTORY: Reason for exam: fall. TECHNIQUE: Axial computed tomography images of the head/brain without intravenous contrast. CTDI is 37.22 mGy and DLP is 624.41 mGy-cm. Automated exposure control was utilized for the study. A dose lowering technique was utilized adhering to the principles of ALARA. COMPARISON: 12/22/2022. FINDINGS: Brain: Unremarkable. No hemorrhage. No significant white matter disease. No edema. Ventricles: Unremarkable. No ventriculomegaly. Bones/joints: Unremarkable. No acute fracture. Soft tissues: Unremarkable. Sinuses: Unremarkable as visualized. No acute sinusitis. Mastoid air cells: Unremarkable as visualized. No mastoid effusion. IMPRESSION: Normal CT brain for age, stable study in the interval. Electronically signed by: Katelyn Mart MD 05/26/23 20:[address] 05/26/23 19:50 Exam(s): CT C SPINE EXAM: CT Cervical Spine Without Intravenous Contrast CLINICAL HISTORY: Reason for exam: fall. TECHNIQUE: Axial computed tomography images of the cervical spine without intravenous contrast. CTDI is 27.58 mGy and DLP is 862.93 mGy-cm. Automated exposure control was utilized for the study. A dose lowering technique was utilized adhering to the principles of ALARA. COMPARISON: None. FINDINGS: Vertebrae: Prominent osteophytosis along the anterior vertebral bodies from C5-C7 with narrowing of disc height consistent with disc degenerative disease. Degenerative disease of the anterior C1-C2 articulation, otherwise normal odontoid process. Discs/spinal canal/neural foramina: Multilevel bilateral facet hypertrophy contributing variable degrees of neuroforaminal encroachment. This is more severe on the left at C4-C5 and on the right at C3-C4. No central canal stenosis. Soft tissues: Unremarkable. Vasculature: Atherosclerotic disease involving the bilateral carotid arteries. IMPRESSION: Degenerative disease as described with no acute fracture or subluxation. Electronically signed by: Katelyn Mart MD 05/26/23 20:28 PM
--- NOTE | 2023-05-27 18:18 | Billing Data ---
Date of Service May 27, 2023 Coding Level of Care Code 15501 SUB INP/OBS CARE MIN
[2023-05-27 18:43] LABS: Chol HDL Ratio 13.6 (0-5)
[2023-05-27] MEDS ORDERED: FLUoxetine HCL 20 MG CAP PO SCH (21:00)
[2023-05-27] MEDS ORDERED: ATENOLOL 50 MG TABLET PO SCH (21:00)
[2023-05-27] MEDS ORDERED: AMITRIPTYLINE HCL 25 MG TAB PO SCH (21:00)
--- NOTE | 2023-05-28 04:04 | Billing Data ---
Date of Service May 28, 2023 Coding Level of Care Code 63287 INT INP/OBS CARE
[2023-05-28 07:07] LABS: Basophils # (auto) 0.11 K/uL (0.00-0.20); Basophils % (auto) 1.1 %; Eosinophils # (auto) 0.21 K/uL (0.00-0.50); Eosinophils % (auto) 2.1 %; Hematocrit (blood only) 22.9 % (37.0-47.0); Immature Granulocytes # (auto) 0.06 K/uL (0.01-0.20); Immature Granulocytes % (auto) 0.6 %; Lymphocytes # (auto) 2.13 K/uL (1.20-3.40); Lymphocytes % (auto) 21.3 %; Mean Corpuscular Hemoglobin 36.2 pg (25.0-34.0); Mean Corpuscular Hgb Conc 34.9 g/dL (32.0-36.0); Mean Corpuscular Volume 103.6 fL (80.0-100.0); Mean Platelet Volume 9.9 fL (9.4-12.4); Monocytes # (auto) 0.76 K/uL (0.11-0.59); Monocytes % (auto) 7.6 %; Neutrophils # (auto) 6.74 K/uL (1.40-6.50); Neutrophils % (auto) 67.3 %; Platelet Count 146 K/uL (130-400); RDW Coefficient of Variation 23.5 % (11.5-14.5); RDW Standard Deviation 85.6 fL (36.4-46.3); Red Blood Count 2.21 M/uL (4.20-5.40); White Blood Count 10.01 K/ul (4.8-10.8)
[2023-05-28 07:30] LABS: Anisocytosis Present; Polychromasia 2+; Target Cells 2+
[2023-05-28 07:36] LABS: Albumin Globulin Ratio 0.7 (0.9-2); Albumin Level 2.2 gm/dl (3.4-5.0); BUN Creatinine Ratio 7.9 (10-20); Bilirubin,Total 10.7 mg/dl (0.2-1.0); C Reactive Protein 7.89 mg/dl (0-0.5); Calcium 7.6 mg/dl (8.6-10.3); Creatinine Clr Calc Pharmacy 82.1 ml/min; Est GFR (African American) 72.1 ml/min; Est GFR (Non-African American) 62.2 ml/min; Potassium 3.5 mmol/L (3.5-5.1); Total Protein 5.2 gm/dl (6.0-8.3)
[2023-05-28 07:38] LABS: INR 1.7 (0.9-1.1); Prothrombin Time 17.7 Seconds (9.0-12.0)
--- NOTE | 2023-05-28 07:44 | Hospitalist Progress Note ---
Date of Service May 28, 2023 Assessment & Plan (1) Weakness: Plan: 57 year old female admitted for weakness, hypokalemia and hyperbilirubinemia. Elevated Bilirubin/INR/transaminitis: Alcoholic liver hepatitis -INR 1.7, T bili 10.7, AST 112, ALT 33, Alk phos 213. -Alcohol level <10, ammonia 92. -CT A&P evidence of injury, mild diffuse fatty liver with indeterminate low attenuation lesions, likely benign in absence of known neoplasm, nonobstructive 4.7mm kidney stone in L kidney, mild free fluid as described w/ splenomegaly, cannot exclude chronic liver disease. -Unknown origin for hyperbilirubinemia and transaminitis. -Alcoholic hepatitis vs non alcoholic fatty liver disease vs both -Pending: hepatitis panel, antimitochondrial antibody, CHER. -Consulted GI, will appreciate recs. -supportive measurements -Maddrey:51.3 -MELD score: 21 -lipid panel and HgbA1C (4.5) -Will order Vitamin K supplementation Will follow am labs Weakness -Unable to eat or drink well past few weeks to month due to sarthak-oral rash.Recent fall due to weakness -Most likely has iron deficiency anemia, hypokalemia from poor nutrition. -s/ Replenished 20meq IV K+ in ED. Will give 2 bags of NSS + 20meq KCl -PT/OT consulted for eval and treat. - recheck BMP in the AM. Alcohol use disorder --Drinks 1-2 12oz alcoholic beverages per day - question of alcohol contribution. -Maddrey:51.3 MELD: 21 Hypokalemia -Resolved -K: 3.5 s/replaced with 2 bags of NSS + 20meq KCl s/p potassium 40 meq -Follow am Fall: -Bruising seen on exam at R shoulder and on head. -No acute processes on CT day scan. -Continue to monitor control pain with PRN Tylenol. Peripheral neuropathy: -Hgb 9.8, MCV 102.9, B12 and Folate WNL. -May be secondary to rheumatologic or diabetic process. -EMG ordered by neurology. -Started on amitriptyline 25 mg by Neuro recently. -Continue to monitor. Migraine/Depression/Anxiety/HTN: -Continue home medications. F/E/N/GI: Regular. DVT Prophylaxis: SCD Code status: Full code Dispo: Med/tele. (2) Elevated bilirubin: (3) Elevated INR: (4) Anemia: (5) Acute hypokalemia: (6) Fall: (7) Peripheral neuropathy: (8) Hypertension: (9) Migraine without aura, not intractable, without status migrainosus: (10) Depression with anxiety: (11) Excessive somnolence disorder: (12) Sleep apnea: Admission and Anticipated Discharge Date Admission Date: May 26, 2023 Júnior Briceno is a 57 year old female with past medical history of migraine, osteoarthritis of the knees, prediabetes, tobacco use, benign hypertension coming in at direction of his PCP office. Patient was seen in the office Wednesday of last week (05/21) where patient had complained of fatigue, weakness, sarthak-oral rash, peripheral neuropathy. She developed a perioral rash that looked like a burn rash and was very painful for her, had spread a little bit and not gotten totally better. This had in turn caused her to not intake very much to eat, especially in recent weeks. As a result she had felt very weak and was only able to get down liquid type foods. She also developed peripheral neuropathy over the past couple months at the bilateral feet, wrapping around the whole foot on both sides up to the ankle. She states at times feels like pins and needles, at times painful for her and she has to hang her feet off the bed - affected her mostly at night. She had seen Dr. Ingram after our appointment who started her on amitriptyline and ordered some autoimmune labs. Over the weekend she had sustained a fall where she fell onto her R shoulder and then L back and also hit her head without losing consciousness. She has not had much change since I saw her in office on Wednesday with persistence of the weakness, general fatigue, and peripheral neuropathy. Her perioral rash has gotten better with low potency triamcinolone 0.025% I prescribed her on Wednesday. Denies shortness of breath, chest pain, fevers, chills, diarrhea, constipation, abdominal pain. Patient states she has not had any obvious signs of bleeding, no blood per rectum, urine, or vaginal bleeding - she is post-menopausal. Physical Exam Constitutional: WD/WN, vitals as above Eyes: PERRL, conjunctivae normal, anicteric sclerae Respiratory: normal respiratory effort, lungs clear to auscultation Cardiovascular: RRR, no murmur, no edema Gastrointestinal (Abdomen): Inspection/Auscultation: abdomen normal to inspection Percussion/Palpation: abdomen soft and + hepatosplenomegaly; abdomen nontender Psychiatric: A+Ox3, euthymic affect Results & Data Results & Data Vital Signs (Past 12 Hours) Vital Signs Temp Pulse Pulse Resp BP Pulse Ox O2 Del Method 05/28/23 07:19 93 H 05/28/23 04:00 36.9 C 90 18 95/58 L 95 Room Air 05/27/23 22:00 37.1 C 86 18 99/63 L 95 Room Air 05/27/23 23:06 85 05/27/23 19:58 37.1 C 86 18 89/54 L 92 Room Air
[2023-05-28 08:08] LABS: Estimated Average Glucose 82 mg/dl; Hemoglobin A1C 4.5 % (4.5-5.6)
[2023-05-28] MEDS: TRIAMCINOLONE ACET 0.025% CR 15 GM TUBE EXT SCH (08:38)
--- NOTE | 2023-05-28 10:21 | Gastroenterology Progress Note ---
Date of Service May 28, 2023 Assessment & Plan (1) Elevated INR: (2) Weakness: Plan Given macrocytic anemia, palmar erythema and asterixis, suspect patient underreports ETOH use. -Monitor for s/sx of ETOH withdrawal. -Trend coag/liver panel. -Continue supportive care. -Consider ETOH treatment inpt/outpt upon discharge. -Ongoing GI management per [facility] GI upon discharge. Admission and Anticipated Discharge Date Admission Date: May 26, 2023 Supervising Physician Co-Signing Physician Notes I saw the patient and agree with the findings as documented by RENEE Rene Subjective Patient reports she is still fatigued and states she did not sleep well last nig ht. Her INR is improving, down to 1.7 from 2.0 yesterday. Liver panel is also trending down. Denies any abdominal pain, tremor, lower extremity edema, or GIB symptoms. Review of Systems Constitutional: as per Subjective / HPI Gastrointestinal: as per Subjective / HPI Physical Exam Constitutional: + morbidly obese; no acute distress Respiratory: normal respiratory effort, lungs clear to auscultation Cardiovascular: Rate/Rhythm: regular rate and regular rhythm Gastrointestinal (Abdomen): Inspection/Auscultation: normal bowel sounds and + significant pannus Percussion/Palpation: abdomen soft; abdomen nontender, no guarding and abdomen not rigid Musculoskeletal: Extremities: + hand abnormality Bilateral (palmar erythema and +asterixis); no lower leg abnormality Psychiatric: A+Ox3, euthymic affect Results & Data Results & Data Vital Signs (Past 12 Hours) Vital Signs Temp Pulse Pulse Resp BP Pulse Ox O2 Del Method 05/28/23 07:48 36.9 C 90 16 101/65 93 Room Air 05/28/23 07:19 93 H 05/28/23 04:00 36.9 C 90 18 95/58 L 95 Room Air 05/27/23 23:06 85 PG Care Time/CCT Total # of Minutes Spent Total Time Spent with Patient: Total time spent is greater than 50% in coordination of care (as documented) at patient's floor/unit and/or counseling patient: Coding Level of Care Code 07022 SUB INP/OBS CARE 2/35MIN Diagnoses Elevated INR R79.1 Weakness R53.1
[2023-05-28] MEDS ORDERED: predniSONE 20 MG TAB PO SCH (14:45)
--- NOTE | 2023-05-28 15:58 | Discharge Summary ---
Date of Service May 28, 2023 Admission HPI Per Admitting Provider Kaity is a 57 year old female with past medical history of migraine, osteoarthritis of the knees, prediabetes, tobacco use, benign hypertension coming in at direction of his PCP office. I had seen patient in the office Wednesday of last week (05/21) where patient had complained of fatigue, weakness, sarthak-oral rash, peripheral neuropathy. She told me back in February she had new CPAP supplies ordered that were incorrect, she had still used them but developed a sarthak-oral rash that looked like a burn rash and was very painful for her. She used some Vaseline which improved the area initially but had spread a little bit and not gotten totally better. This had in turn caused her to not intake very much to eat, especially in recent weeks. As a result she had felt very weak and was only able to get down liquid type foods. She also developed peripheral neuropathy over the past couple months at the bilateral feet, wrapping around the whole foot on both sides up to the ankle. She states at times feels like pins and needles, at times painful for her and she has to hang her feet off the bed - affected her mostly at night. She had seen Dr. Ingram after our appointment who started her on amitriptyline and ordered some autoimmune labs. Over the weekend she had sustained a fall where she fell onto her R shoulder and then L back and also hit her head without losing consciousness. She has not had much change since I saw her in office on Wednesday with persistence of the weakness, general fatigue, and peripheral neuropathy. Her perioral rash has gotten better with low potency triamcinolone 0.025% I prescribed her on Wednesday. Denies shortness of breath, chest pain, fevers, chills, diarrhea, constipation, abdominal pain. Patient states she has not had any obvious signs of bleeding, no blood per rectum, urine, or vaginal bleeding - she is post-menopausal. Outpatient labs: CBC with WBC 10.67, Hgb 9.8, MCV 102.8, plt 150; BMP w/ Na 137, K 2.8, creat 1.02, glucose 150, Mg 1.9, B12 887, Folate 9.3, Serum protein 6.3, RF <10, IgG 1,650 (H), IgM 188 (normal), IgA 791 (H), CRP 7.32, ESR 63. She did not have the energy for the 2 hour glucose test that was ordered. In the ED she was given 20meq IV K+, 1L NSS. CT Head and Cervical neck w/o any acute processes, CT Chest w/ bilateral basilar atelectasis, otherwise no acute processes; CT A&P w/o evidence of injury, mild diffuse fatty liver with indeterminate low attenuation lesions, likely benign in absence of known neoplasm, nonobstructive 4.7mm kidney stone in L kidney, mild free fluid as described w/ splenomegaly, cannot exclude chronic liver disease. Admission Exam Per Admitting Provider Constitutional: WD/WN, vitals as above Eyes: PERRL, conjunctivae normal, anicteric sclerae Respiratory: Bibasilar minor inspiratory crackle (2-3), otherwise clear to auscultation. Cardiovascular: RRR, no murmur, no edema Gastrointestinal (Abdomen): normal bowel sounds, soft, nontender, no hepatosplenomegaly Skin: Perioral rash erythematous non raised, appearing mildly improved from exam of 05/21. Neurologic: Tingling feeling elicited with sensory exam, proprioception in tact. Psychiatric: A+Ox3, euthymic affect Principal Diagnosis Alcohol hepatitits Discharge Exam Constitutional WD/WN, vitals as above Eyes + anicteric sclerae ENMT external ear and nose normal, oropharynx normal Respiratory normal respiratory effort, lungs clear to auscultation Cardiovascular RRR, no murmur, no edema Gastrointestinal (Abdomen) normal bowel sounds, soft, nontender, no hepatosplenomegaly Musculoskeletal no cyanosis or clubbing, extremities motor strength 5/5 Skin + jaundice Discharge Data Allergies Allergy/AdvReac Type Severity Reaction Status Date / Time gabapentin AdvReac Intermediate Confusion Verified 05/26/23 19:18 sumatriptan [From Imitrex] AdvReac Intermediate periphel Verified 05/26/23 19:18 neuropathic symptoms zolmitriptan [From Zomig] AdvReac Intermediate periphel Verified 05/26/23 19:18 numbness and tingling Consultations 05/26/23 21:50 ED Decision to Admit Stat 05/27/23 01:42 Consult Gastroenterology Routine Ordered Studies Labs 05/26/23 05/26/23 05/26/23 15:28 15:28 15:28 WBC 9.36 RBC 2.79 L Hgb 9.8 L Hct 28.7 L MCV 102.9 H MCH 35.1 H MCHC 34.1 RDW Std Deviation 82.3 H RDW Coeff of Clementine 22.5 H Plt Count 159 MPV 9.9 Immature Gran % (Auto) 0.7 Neut % (Auto) 73.4 Lymph % (Auto) 15.1 Amite % (Auto) 8.5 Eos % (Auto) 1.3 Baso % (Auto) 1.0 Neut # (Auto) 6.87 H Lymph # (Auto) 1.41 Amite # (Auto) 0.80 H Eos # (Auto) 0.12 Baso # (Auto) 0.09 Immature Gran # (Auto) 0.07 Polychromasia Anisocytosis Target Cells 2+ PT 18.6 H INR 1.8 H Sodium 136 Potassium 2.9 L Chloride 94 L Carbon Dioxide 32 Anion Gap 10 BUN 4 L Creatinine 0.96 Est Cr Clr Drug Dosing 85.0 Est GFR ( Amer) 76.6 Est GFR (Non-Af Amer) 66.1 BUN/Creatinine Ratio 4.2 L Glucose 147 H Estimat Average Glucose Hemoglobin A1c Calcium 8.5 L Magnesium 1.9 Iron Ferritin Total Bilirubin 9.0 H Direct Bilirubin 5.0 H AST 155 H ALT 45 Alkaline Phosphatase 289 H Ammonia C-Reactive Protein Total Protein 6.1 Albumin 2.8 L Globulin 3.3 Albumin/Globulin Ratio 0.8 L Triglycerides Cholesterol LDL Cholesterol, Calc VLDL Cholesterol, Calc HDL Cholesterol Cholesterol/HDL Ratio Ethyl Alcohol mg/dL 05/26/23 05/26/23 05/26/23 22:50 22:50 22:50 WBC RBC Hgb Hct MCV MCH MCHC RDW Std Deviation RDW Coeff of Clementine Plt Count MPV Immature Gran % (Auto) Neut % (Auto) Lymph % (Auto) Amite % (Auto) Eos % (Auto) Baso % (Auto) Neut # (Auto) Lymph # (Auto) Amite # (Auto) Eos # (Auto) Baso # (Auto) Immature Gran # (Auto) Polychromasia Anisocytosis Target Cells PT INR Sodium Potassium Chloride Carbon Dioxide Anion Gap BUN Creatinine Est Cr Clr Drug Dosing Est GFR ( Amer) Est GFR (Non-Af Amer) BUN/Creatinine Ratio Glucose Estimat Average Glucose Hemoglobin A1c Calcium Magnesium Iron 83 Ferritin 1460.8 H Total Bilirubin Direct Bilirubin AST ALT Alkaline Phosphatase Ammonia 92.0 H C-Reactive Protein Total Protein Albumin Globulin Albumin/Globulin Ratio Triglycerides Cholesterol LDL Cholesterol, Calc VLDL Cholesterol, Calc HDL Cholesterol Cholesterol/HDL Ratio Ethyl Alcohol mg/dL < 10.0 05/27/23 05/27/23 05/27/23 04:42 04:42 04:42 WBC 8.82 RBC 2.37 L Hgb 8.4 L Hct 24.0 L MCV 101.3 H MCH 35.4 H MCHC 35.0 RDW Std Deviation 82.7 H RDW Coeff of Clementine 23.4 H Plt Count 142 MPV 10.1 Immature Gran % (Auto) 0.7 Neut % (Auto) 68.3 Lymph % (Auto) 19.6 Amite % (Auto) 9.2 Eos % (Auto) 1.5 Baso % (Auto) 0.7 Neut # (Auto) 6.03 Lymph # (Auto) 1.73 Amite # (Auto) 0.81 H Eos # (Auto) 0.13 Baso # (Auto) 0.06 Immature Gran # (Auto) 0.06 Polychromasia 1+ Anisocytosis Present Target Cells 1+ PT 21.3 H INR 2.0 H Sodium 136 Potassium 3.1 L Chloride 99 Carbon Dioxide 33 H Anion Gap 4 BUN 6 Creatinine 0.98 Est Cr Clr Drug Dosing 84.7 Est GFR ( Amer) 74.7 Est GFR (Non-Af Amer) 64.5 BUN/Creatinine Ratio 6.1 L Glucose 108 H Estimat Average Glucose Hemoglobin A1c Calcium 7.7 L Magnesium Iron Ferritin Total Bilirubin 8.5 H Direct Bilirubin AST 119 H ALT 36 Alkaline Phosphatase 229 H Ammonia C-Reactive Protein 7.46 H Total Protein 4.9 L D Albumin 2.3 L Globulin 2.6 Albumin/Globulin Ratio 0.9 Triglycerides Cholesterol LDL Cholesterol, Calc VLDL Cholesterol, Calc HDL Cholesterol Cholesterol/HDL Ratio Ethyl Alcohol mg/dL 05/27/23 05/27/23 05/28/23 17:10 17:10 06:42 WBC 10.01 RBC 2.21 L Hgb 8.0 L Hct 22.9 L MCV 103.6 H MCH 36.2 H MCHC 34.9 RDW Std Deviation 85.6 H RDW Coeff of Clementine 23.5 H Plt Count 146 MPV 9.9 Immature Gran % (Auto) 0.6 Neut % (Auto) 67.3 Lymph % (Auto) 21.3 Amite % (Auto) 7.6 Eos % (Auto) 2.1 Baso % (Auto) 1.1 Neut # (Auto) 6.74 H Lymph # (Auto) 2.13 Amite # (Auto) 0.76 H Eos # (Auto) 0.21 Baso # (Auto) 0.11 Immature Gran # (Auto) 0.06 Polychromasia 2+ Anisocytosis Present Target Cells 2+ PT INR Sodium Potassium Chloride Carbon Dioxide Anion Gap BUN Creatinine Est Cr Clr Drug Dosing Est GFR ( Amer) Est GFR (Non-Af Amer) BUN/Creatinine Ratio Glucose Estimat Average Glucose 82 Hemoglobin A1c 4.5 Calcium Magnesium Iron Ferritin Total Bilirubin Direct Bilirubin AST ALT Alkaline Phosphatase Ammonia C-Reactive Protein Total Protein Albumin Globulin Albumin/Globulin Ratio Triglycerides 98 Cholesterol 95 LDL Cholesterol, Calc 68 VLDL Cholesterol, Calc 20 HDL Cholesterol 7 Cholesterol/HDL Ratio 13.6 H Ethyl Alcohol mg/dL 05/28/23 05/28/23 06:42 06:42 WBC RBC Hgb Hct MCV MCH MCHC RDW Std Deviation RDW Coeff of Clementine Plt Count MPV Immature Gran % (Auto) Neut % (Auto) Lymph % (Auto) Amite % (Auto) Eos % (Auto) Baso % (Auto) Neut # (Auto) Lymph # (Auto) Amite # (Auto) Eos # (Auto) Baso # (Auto) Immature Gran # (Auto) Polychromasia Anisocytosis Target Cells PT 17.7 H INR 1.7 H Sodium 136 Potassium 3.5 Chloride 102 Carbon Dioxide 29 Anion Gap 5 BUN 8 Creatinine 1.01 Est Cr Clr Drug Dosing 82.1 Est GFR ( Amer) 72.1 Est GFR (Non-Af Amer) 62.2 BUN/Creatinine Ratio 7.9 L Glucose 101 H Estimat Average Glucose Hemoglobin A1c Calcium 7.6 L Magnesium Iron Ferritin Total Bilirubin 10.7 H Direct Bilirubin AST 112 H ALT 33 Alkaline Phosphatase 213 H Ammonia C-Reactive Protein 7.89 H Total Protein 5.2 L Albumin 2.2 L Globulin 3.0 Albumin/Globulin Ratio 0.7 L Triglycerides Cholesterol LDL Cholesterol, Calc VLDL Cholesterol, Calc HDL Cholesterol Cholesterol/HDL Ratio Ethyl Alcohol mg/dL Abdomen/Pelvis CT 05/26/23 19:28 Exam(s): CT ABDOMEN + PELVIS With Contrast IV Amt: 89ml optiray 320 EXAM: CT Abdomen and Pelvis With Intravenous Contrast CLINICAL HISTORY: Reason for exam: fall. TECHNIQUE: Axial computed tomography images of the abdomen and pelvis with intravenous contrast. CTDI is 28.14 mGy and DLP is 1542.04 mGy-cm. Automated exposure control was utilized for the study. A dose lowering technique was utilized adhering to the principles of ALARA. CONTRAST: Patient received 89ml optiray 320 of IV contrast COMPARISON: None. FINDINGS: Lung bases: Multilobar basilar atelectasis, more significant in the right lower lobe. Heart: Mild cardiomegaly. ABDOMEN: Liver: Possible mild diffuse fatty liver. Low-attenuation lesions identified within the liver, largest seen in the right liver lobe measuring up to 11.2 mm most compatible with a liver cyst. Additional smaller lesion within the right liver lobe posteriorly, too small to characterize measuring 6.5 mm. Gallbladder and bile ducts: Possible tiny sludge within the gallbladder with small stones not excluded. No ductal dilation. Pancreas: Unremarkable. No mass. No ductal dilation. Spleen: The spleen is enlarged measuring 14.8 cm. Adrenals: Unremarkable. No mass. Kidneys and ureters: Left lower renal pole stone measuring 4.7 mm. No hydronephrosis. Stomach and bowel: Thickening of the wall throughout the right colon concerning for right-sided colitis. No bowel obstruction. PELVIS: Appendix: No findings to suggest acute appendicitis. Bladder: Unremarkable. No mass. Reproductive: Anteverted uterus. ABDOMEN and PELVIS: Intraperitoneal space: Mild free fluid in the pelvis. No free air. Bones/joints: Multilevel degenerative disease of the spine, more severe at L5-S1. No acute fracture. No dislocation. Soft tissues: Unremarkable. Vasculature: Unremarkable. No abdominal aortic aneurysm. Lymph nodes: Unremarkable. No enlarged lymph nodes. IMPRESSION: 1. No evidence of visceral or intra-abdominal injury. 2. Mild diffuse fatty liver with indeterminate low-attenuation lesions, likely benign in the absence of known neoplasm. 3. Nonobstructive stone in the left kidney measuring 4.7 mm. 4. Mild free fluid as described with splenomegaly. In the context of fatty liver, cannot exclude chronic liver disease, correlation with liver function tests recommended. Electronically signed by: Katelyn Mart MD 05/26/23 21:[address] 05/26/23 19:28 Exam(s): CT CHEST With Contrast IV Amt: 89ml optiray 320 EXAM: CT Chest With Intravenous Contrast CLINICAL HISTORY: Reason for exam: fall chest wall pain. TECHNIQUE: Axial computed tomography images of the chest with intravenous contrast. CTDI is 24.13 mGy and DLP is 498.01 mGy-cm. Automated exposure control was utilized for the study. A dose lowering technique was utilized adhering to the principles of ALARA. CONTRAST: Patient received 89ml optiray 320 of IV contrast COMPARISON: None. FINDINGS: Lungs: Mild bilateral lower lobe atelectasis, more significant on the right compared to the left. Right middle lobe atelectasis. Remainder of the lung garcia are clear. Pleural space: Unremarkable. No pneumothorax. No significant effusion. Heart: Borderline cardiomegaly. No significant pericardial effusion. No significant coronary artery calcifications. Bones/joints: Unremarkable. No acute fracture. No dislocation. Soft tissues: Unremarkable. Vasculature: Unremarkable. No thoracic aortic aneurysm. Lymph nodes: Unremarkable. No enlarged lymph nodes. Liver: Low-attenuation structure within the right liver lobe with peripheral nodular enhancement measuring 2.0 cm suggestive of hemangioma. Mild diffuse fatty liver. Intraperitoneal space: Trace ascites surrounding the liver and spleen. IMPRESSION: 1. Bilateral basilar atelectasis, otherwise no acute cardiopulmonary disease. 2. No pleural effusion or pneumothorax. Electronically signed by: Katelyn Mart MD 05/26/23 20:[address] 05/26/23 19:28 Exam(s): CT HEAD Without Contrast EXAM: CT Head Without Intravenous Contrast CLINICAL HISTORY: Reason for exam: fall. TECHNIQUE: Axial computed tomography images of the head/brain without intravenous contrast. CTDI is 37.22 mGy and DLP is 624.41 mGy-cm. Automated exposure control was utilized for the study. A dose lowering technique was utilized adhering to the principles of ALARA. COMPARISON: 12/22/2022. FINDINGS: Brain: Unremarkable. No hemorrhage. No significant white matter disease. No edema. Ventricles: Unremarkable. No ventriculomegaly. Bones/joints: Unremarkable. No acute fracture. Soft tissues: Unremarkable. Sinuses: Unremarkable as visualized. No acute sinusitis. Mastoid air cells: Unremarkable as visualized. No mastoid effusion. IMPRESSION: Normal CT brain for age, stable study in the interval. Electronically signed by: Katelyn Mart MD 05/26/23 20:[address] 05/26/23 19:50 Exam(s): CT C SPINE EXAM: CT Cervical Spine Without Intravenous Contrast CLINICAL HISTORY: Reason for exam: fall. TECHNIQUE: Axial computed tomography images of the cervical spine without intravenous contrast. CTDI is 27.58 mGy and DLP is 862.93 mGy-cm. Automated exposure control was utilized for the study. A dose lowering technique was utilized adhering to the principles of ALARA. COMPARISON: None. FINDINGS: Vertebrae: Prominent osteophytosis along the anterior vertebral bodies from C5-C7 with narrowing of disc height consistent with disc degenerative disease. Degenerative disease of the anterior C1-C2 articulation, otherwise normal odontoid process. Discs/spinal canal/neural foramina: Multilevel bilateral facet hypertrophy contributing variable degrees of neuroforaminal encroachment. This is more severe on the left at C4-C5 and on the right at C3-C4. No central canal stenosis. Soft tissues: Unremarkable. Vasculature: Atherosclerotic disease involving the bilateral carotid arteries. IMPRESSION: Degenerative disease as described with no acute fracture or subluxation. Electronically signed by: Katelyn Mart MD 05/26/23 20:28 PM 05/26/23 19:28 CT abd pelvis IV con only Stat CT chest diagnostic w con Stat CT head/brain wo con Stat 05/26/23 19:50 CT cervical spine wo con Stat Hospital Course (1) Alcoholic hepatitis: (2) Elevated bilirubin: (3) Elevated INR: (4) Anemia: (5) Peripheral neuropathy: (6) Migraine headache: (7) Hypertension: (8) Migraine without aura, not intractable, without status migrainosus: (9) Depression with anxiety: (10) Weakness: 57 year old female admitted for weakness, hypokalemia, hyperbilirubinemia. Weakness/Hypokalemia: -Unable to eat or drink well past few weeks to month due to sarthak-oral rash. -Hgb 9.8, MCV 102.9, K 2.9. -Recent fall due to weakness. Day scan CT w/o any acute abnormalities from the fall. -Most likely has iron deficiency anemia, hypokalemia from poor nutrition. -Drinks 1-2 12oz alcoholic beverages per day - question of alcohol contribution. -Replenished 20meq IV K+ in ED. Will give 2 bags of NSS + 20meq KCl, recheck BMP in the AM. -PT/OT consulted for eval and treat. -Admit to med/tele. Elevated Bilirubin/INR/transaminitis: -INR 1.8, T bili 9.0, D bili 5.0, AST 155, ALT 45, Alk phos 289. -Alcohol level <10, ammonia 92. -CT A&P evidence of injury, mild diffuse fatty liver with indeterminate low attenuation lesions, likely benign in absence of known neoplasm, nonobstructive 4.7mm kidney stone in L kidney, mild free fluid as described w/ splenomegaly, cannot exclude chronic liver disease. -[facility] records yield 1.7-2.1, AST 150-169, ALT 35-48. -Unknown origin for hyperbilirubinemia and transaminitis. -May be secondary to alcohol use, fatty liver, PBC. -Will order hepatitis panel, antimitochondrial antibody, CHER. -Consulted GI, will appreciate recs. -AM CMP. Fall: -Bruising seen on exam at R shoulder and on head. -No acute processes on CT day scan. -Continue to monitor control pain with PRN Tylenol. Peripheral neuropathy: -Hgb 9.8, MCV 102.9, B12 and Folate WNL. -May be secondary to rheumatologic or diabetic process. -EMG ordered by neurology. -Started on amitriptyline by Neuro recently. -Continue to monitor. Migraine/Depression/Anxiety/HTN: -Continue home medications. F/E/N/GI: Regular. DVT Prophylaxis: SCD Code status: Full code Dispo: Med/tele. (11) Acute hypokalemia: (12) Fall: (13) Excessive somnolence disorder: (14) Sleep apnea: Plan 57 year old female admitted for weakness, hypokalemia and hyperbilirubinemia. Elevated Bilirubin/INR/transaminitis: Alcoholic hepatitis -At admission: INR 1.8, T bili 9.0, D bili 5.0, AST 155, ALT 45, Alk phos 289. -Alcohol level <10, ammonia 92. -Pending hepatitis panel, antimitochondrial antibody, CHER. Patient found with alcohol hepatitis. All labs negative for non alcoholic fatty liver disease. Maddrey score at 51.3. Patient started with Prednisone 40 mg PO daily for 7 days in total. Discharged today with instructions of lab work follow up in 5 days. Weakness Resolved. -Unable to eat or drink well past few weeks to month due to sarthak-oral rash. -Patient dehydrated and al electrolytes replaced Alcohol use disorder --Drinks 1-2 12oz alcoholic beverages per day - question of alcohol contribution. -Maddrey:51.3 -MELD: 21 Hypokalemia -Resolved after replacement Peripheral neuropathy: -Hgb 9.8, MCV 102.9, B12 and Folate WNL. -May be secondary to rheumatologic vs hepatitis -EMG ordered by neurology. -Started on amitriptyline 25 mg by Neuro recently. -Continue to monitor. Migraine/Depression/Anxiety/HTN: -Continue home medications. Total Time Total Time Spent Total Time Spent (In Minutes): see attending attestation Discharge Plan Discharge Items Patient Disposition: Home - Self-Care Reason For Visit: WEAKNESS, HYPOKALEMIA Discharge Diagnosis: Alcohol hepatitis Activity: Resume your previous activity Bathing: No limitations Non-emergency contact: Primary Care Provider Call non-emergency contact if: you have any medication questions and your symptoms worsen Follow-up/Referrals: Shahab Mcmanus MD [Primary Care Provider] - Diet: Regular and Heart Healthy Ambulatory Orders: Complete Blood Count no Diff (Routine) Timeframe: 20230601 Location: Determined by Patient Ordered By: Rafy Aguirre Comprehensive Metabolic Panel (Routine) Timeframe: 20230601 Location: Determined by Patient Ordered By: Rafy Aguirre Prothrombin Time INR (Routine) Timeframe: 20230601 Location: Determined by Patient Ordered By: Rafy Aguirre Addtl Attending Provider Instructions: You were in the hospital due to acute confusion and weakness. You were found with dehydration (due to poor oral intake last week) and elevated liver enzymes as well elevated as bilirubin. This is called hepatitis (inflammation of the liver) caused by chronic alcohol used. We started you in Prednisone 40 mg daily. You are going to continue to take Prednisone 40 mg (2 tabs) daily for 6 days more. On Wednesday (06/01), you need to repeat your laboratory blood work Follow-up appointments: Make a follow-up appointment with your PCP within the next week. It is very important that you follow up with them shortly after discharge from the hospital. CALL 911 OR GO TO THE EMERGENCY DEPARTMENT if you experience any of the following: Sudden, severe abdominal pain or nausea/vomiting Severe chest pain, or chest pain that radiates (moves) to your jaw or arm Sudden change on mental status We encourage you to cease alcohol used as well Thank you for allowing us to participate in your care. Pending Studies at Discharge: No Stand-Alone Forms: My [facility], Smoking Cessation Medications and DC Order Prescriptions: New prednisone 20 mg Tablet 40 mg PO DAILY 7 Days Qty: 14 0RF Continued Nurtec ODT 75 mg tablet,disintegrating 75 mg PO ONCE PRN (Reason: migraine headache) Qty: 8 6RF Rx Instructions: 75mg po once a day prn acute migraine [id number] 50-300-40 mg capsule 1 cap PO DAILY PRN (Reason: headache) Qty: 10 3RF Botox 200 unit recon soln See Rx Instructions IM .COMPLEX Qty: 1 3RF Rx Instructions: 155 UNITS IM IN THE FACE AND NECK MUSCLES EVERY 12 WEEKS PER MIGRAINE PROTOCOL fluoxetine 20 mg capsule 20 mg PO HS (DME) CPAP Machine Misc .Route Qty: 1 0RF Rx Instructions: 10 cm of water, mask fit to patient comfort, heated humidification, compliance download capabilities ondansetron 4 mg tablet,disintegrating 4 mg PO DAILY PRN (Reason: nausea and vomiting) amitriptyline 25 mg tablet 25 mg PO HS Qty: 30 5RF atenolol 100 mg tablet 100 mg PO HS topiramate 150 mg capsule,sprinkle,ER 24hr 150 mg PO HS Discharge Orders: Discharge Order (Routine); Ordered 05/28/23 Ordered By: Rafy Aguirre Admission Data Admit Date/Time: 05/26/23 23:12 Attending Provider: Michael Neely Admit Provider: Robert Armas Primary Care Provider: Shahab Mcmanus Other Providers: James Rocha ; Khadar Hassan Jr Other Interventions: Discharge Summary Assessment (RN) Last Done: 05/28/23 16:09 Supervising Physician Co-Signing Physician Notes I personally examined the patient and verified all arellano points of history and exam, discussed case, and agree with decision making with Dr Coy Aguirre feeling about the same and would very much like to go home. Discussed my concerns about the potential of deteriorating further into liver failure, discussed the severity of her illness, discussed risk for hepatic encephalopathyshe lives with family and is certainly willing to come back to the hospital if anything worsens. She expresses an understanding of her situation. She expresses an understanding of the absolute need for alcohol abstinence, as well as avoiding Tylenol/NSAIDs/etc. She is willing to have close outpatient follow-up and serial labs. Vitals noted, in general she is awake and alert pleasant no distress. Breathing unlabored no accessory muscle use, ongoing icterus. No focal neurodeficits. Severe liver impairmentappears to be on the basis of most likely alcoholic liver diseasemetabolic labs (lipids and A1c) reassuringly low as far as having nonalcoholic fatty liver disease (although I do have concern that her low lipids are due to poor synthetic function), viral hepatitis panel still pendi ngdiscussed this with patient and noted that there is a small but real chance that she could also have hepatitis C that would require treatment. CHER and antimitochondrial antibodies are still pendingoutpatient follow-up, although it seems more plausible this is alcohol mediated than autoimmune. Given her Madreyand low risk for side effects from corticosteroidsprednisolone initiated. Given close supervision/supportive family, cautiously okay with her going home, discussed the main thing that should bring her back to the hospital would be any worsening mental status/confusion (given her liver disease and elevated ammoniaalthough no recommendation from GI, no role that I am familiar with, and up-to-date specifically noting no role for treating elevated ammonia in the absence of altered mental statustherefore no lactulose/rifaximin at discharge), and she is aware that she is at risk of further deterioration and should anything worsen she should come back to the hospital. In that contextHome. Labs again in a few days, and probably biweekly for the foreseeable future, close PCP and GI follow-up. Resident Activity Tracking Resident Involvement: Resident Care Provided Care Provided: Adult Hospital Medicine
--- NOTE | 2023-05-28 18:35 | Billing Data ---
Date of Service May 28, 2023 Coding Level of Care Code 70854 IN/OBS DISCH 30 MIN/LESS
--- NOTE | 2023-05-31 08:03 | Electrocardiogram Report ---
Test Reason : Blood Pressure : / mmHG Vent. Rate : 081 BPM Atrial Rate : 081 BPM P-R Int : 140 ms QRS Dur : 080 ms QT Int : 402 ms P-R-T Axes : 035 002 010 degrees QTc Int : 466 ms Normal sinus rhythm Cannot rule out Anterior infarct (cited on or before 26-MAY-2023) Nonspecific ST and T wave abnormality Abnormal ECG When compared with ECG of 10-DEC-2013 12:39, Nonspecific T wave abnormality now evident in Anterior leads Confirmed by Bronson Torres ([id number]) on 05/31/2023 8:03:40 AM Referred By: Shahab Mcmanus Confirmed By:Bronson Torres
--- OUTSIDE RECORDS SUMMARY | 2023-06-01 01:48 | External Medical Summary | Continuity of Care Document ---
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 [address] [place] [address] Practice Site [address] [facility], [facility] [address] [place], [place] [address]Ryiqa [phone] Discharge Disposition: Home or Self Care Attending Physician: DO Dubon Gretchen Elizabeth Allergies, Adverse Reactions, Alerts Substance Reaction Severity Status Zomig peripheral numbness/tingling Active Imitrex peripheral neuropathic symptoms Active Assessment and Plan Extracted from: Title:Clinical Document Author:MD Comer Ryan Da te:10/01/22 OUTPATIENT NOTE Name: SAWYER WEST Patient Number:[id number] : 1965 Date of Service: 10/01/2022 Patient (SAWYER WEST) and I had a virtual appointment (via [facility]) scheduled for 1:40 PM today. Our staff attempted to reach the patient three separate times regarding this appointment (after she picked up for initial nursing check- in), but were not able to get ahold of them. Voice messages were left instructing them to call back the office. I waited over 16 minutes (from their scheduled start time) for them to appear/return call on the aforementioned virtual platform, but they did not arrive / answer. I also sent multiple visit requests over the portal. Given the amount of time elapsed, patient will have to call into the office to reschedule the appointment for a later date. Attending physician and front desk administrator made aware. Michale Comer MD Resident Physician [facility] Medicine [address], [address] [place], [place] Office Scheduling: Immunizations Given and Recorded Vaccine Date Status Refusal Reason SARS-CoV-2 (COVID-19) mRNA-1273 vaccine 1 01/23/21 Recorded SARS-CoV-2 (COVID-19) mRNA-1273 vaccine 2 12/25/20 Recorded influenza virus vaccine, inactivated 08/01/18 Give n 1Result Comment: 2021-11-12: Historical information-source unspecified 2Result Comment: 2021-11-12: Historical information-source unspecified Medications atenolol 100 mg oral tablet Start: 03/11/22 10:51:00 EDT, See Instructions, Disp# 30 tab, Refills: 2, take 1 tablet by mouth once daily, Pharmacy: [facility] Start Date: 03/11/22 Status: Ordered Botox. Start: 07/01/22 15:52:00 EDT Start Date: 07/01/22 Status: Ordered Fioricet 325 mg-50 mg-40 mg oral tablet Start: 07/31/22 11:05:00 EDT, 1 tab, PO, q6h, Disp# 30 tab, Refills: 0, PRN: as needed for headache, Pharmacy: [facility] #[id number] Start Date: 07/31/22 Status: Ordered FLUoxetine 20 mg oral capsule Start: 05/13/22 11:41:00 EDT, See Instructions, Disp# 30 cap, Refills: 5, take 1 capsule by mouth once daily, Pharmacy: [facility] #[id number] Start Date: 05/13/22 Status: Ordered multivitamin Start: 09/25/22 13:20:00 EST, 1 tab, PO, Daily Start Date: 09/25/22 Status: Ordered Nurtec ODT 75 mg oral tablet, disintegrating Start: 07/01/22 15:52:00 EDT Start Date: 07/01/22 Status: Ordered omeprazole 20 mg oral delayed release capsule Start: 09/09/22 10:09:00 EST, 1 cap, PO, Daily, Disp# 90 cap, Refills: 5, other Start Date: 09/09/22 Stop Date: 03/02/24 Status: Ordered Probiotic Formula Start: 09/25/22 13:20:00 EST Start Date: 09/25/22 Status: Ordered topiramate 150 mg oral capsule, extended release Start: 10/01/22 14:55:00 EST, 1 cap, PO, Daily, Disp# 30 cap, Refills: 2, Pharmacy: [facility]/pharmacy #[id number] Start Date: 10/01/22 Stop Date: 12/30/22 Status: Ordered Voltaren 1% topical gel Start: 07/01/22 16:48:00 EDT, 1 appl, topical, qid, Disp# 100 g, PRN: Pain, Pharmacy: [facility] #[id number] Start Date: 07/01/22 Status: Ordered Zofran 4 mg oral tablet Start: 09/15/22 16:03:00 EST, 1 tab, PO, bid, Disp# 14 tab, PRN: as needed for nausea/vomiting, Pharmacy: [facility]/pharmacy #[id number] Start Date: 09/15/22 Stop Date: 09/20/22 Status: Ordered Mental Status 10/01/22 Barriers to Learning one year None evide nt Mandatory Health Literacy Documentation Yes Health Literacy Communication Barriers N ever Primary Language Chilean Problem List Condition Confirmation Course Effective Dates Status Health St atus Informant Benign hypertension Confirmed Active Patellar contusion Confirmed Active Hamstring strain Confirmed Active Left knee pain Confirmed Active MIGRAINE Confirmed Active Patellar tendonitis Confirmed Active Tobacco abuse Confirmed Active Weight disorder Confirmed Active Procedures Procedure Date Related Diagnosis Body Site Status Hysterectomy 1 12/11/13 Completed Pap smear for cervical cance r screening 2 10/23/13 Completed dental Completed Endometrial ablation Comp leted Laparoscopic bilateral oophorectomy Completed 1Diagnostic Hysteroscopy NovaSure endometrial ablation Bilateral laparoscopic tubal ligation 2wnl/repeat 1 yr Social History Social History Type Response Smoking Status Never smoked cigaret juan Sex Female Patient Care team information Personnel Name: MD Vipul, Sarahi Address: Address: [facility] [address]
--- OUTSIDE RECORDS SUMMARY | 2023-06-01 01:48 | External Medical Summary | Continuity of Care Document ---
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 Role Phone Sarahi Matthew Primary Care Physician [phone] [id number] Date[facility]s): 11/20/22 - 11/20/22 [facility] [address] [facility] [address] [facility] [place] [phone] Encounter Diagnosis Elevation of levels of liver transaminase levels(Final) - Encounter for screening for diabetes mellitus(Final) - Encounter for screening for lipoid disorders(Final) - Discharge Disposition: Home or Self Care Attending Physician: MD Mcmanus Christopher Referring Physician: MD Mcmanus Christopher Allergies, Adverse Reactions, Alerts Substance Reaction Severity Status Zomig peripheral numbness/tingling Active Imitrex peripheral neuropathic symptoms Active Immunizations Given and Recorded Vaccine Date Status Refusal Reason influenza virus vaccine, inactivated 10/26/22 Give n influenza virus vaccine, inactivated 08/01/18 Give n SARS-CoV-2 (COVID-19) mRNA-1273 vaccine 1 01/23/21 Recorded SARS-CoV-2 (COVID-19) mRNA-1273 vaccine 2 12/25/20 Recorded 1Result Comment: 2021-11-12: Historical information-source unspecified 2Result Comment: 2021-11-12: Historical information-source unspecified Medications atenolol 100 mg oral tablet Start: 10/07/22 15:00:00 EST, 1 tab, PO, Daily, Disp# 90 tab, Refills: 3, Pharmacy: [facility]/pharmacy #[id number] Start Date: 10/07/22 Status: Ordered Botox. Start: 07/01/22 15:52:00 EDT Start Date: 07/01/22 Status: Ordered Fioricet 325 mg-50 mg-40 mg oral tablet Start: 07/31/22 11:05:00 EDT, 1 tab, PO, q6h, Disp# 30 tab, Refills: 0, PRN: as needed for headache, Pharmacy: [facility] #[id number] Start Date: 07/31/22 Status: Ordered FLUoxetine 20 mg oral capsule Start: 10/28/22 16:57:00 EST, 1 cap, PO, Daily, Disp# 90 cap, Refills: 3, Pharmacy: [facility]/pharmacy #[id number] Start Date: 10/28/22 Stop Date: 10/23/23 Status: Ordered multivitamin Start: 09/25/22 13:20:00 EST, [...] 150 mg oral capsule, extended release Start: 10/05/22 11:42:00 EST, 1 cap, PO, Daily, Disp# 30 cap, Refills: 11, contents of capsule may be mixed with soft foods such as applesauce, Note to Pharmacy: please call patient KATHY -, Pharmacy:[facility]/pharmacy #[id number] Start Date: 10/05/22 Stop Date: 09/30/23 Status: Ordered topiramate 50 mg oral tablet Start: 10/07/22 10:32:00 EST, See Instructions, Disp# 90 tab, Refills: 2, Take 1 tab in the morning, 2 tabs at bedtime, Note to Pharmacy: 1 tab qAM / 2 tab qHS; Patient has also mentioned she has taken it t.i.d. in the past - I'm not used to doing it... Start Date: 10/07/22 Status: Ordered Voltaren 1% topical gel Start: 07/01/22 16:48:00 EDT, 1 appl, topical, qid, Disp# 100 g, PRN: Pain, [facility]acy: [facility] #[id number] Start Date: 07/01/22 Status: Ordered Zofran 4 mg oral tablet Start: 10/05/22 11:45:00 EST, 1 tab, PO, bid, Disp# 30 tab, Refills: 1, PRN: as needed for nausea/vomiting, Pharmacy: [facility] #[id number] Start Date: 10/05/22 Stop Date: 10/25/22 Status: Ordered Problem List Condition Confirmation Course Effective Dates Status Health St atus Informant Benign hypertension Confirmed Active MIGRAINE Confirmed Active Patellar tendonitis Confirmed Active Tobacco abuse Confirmed Active Weight disorder Confirmed Active Procedures Procedure Date Related Diagnosis Body Site Status US scan of right upper abdomen 1 10/14/22 Completed Hysterectomy 2 12/11/13 Completed Pap smear for cervical cance r screening 3 10/23/13 Completed dental Completed Endometrial ablation Comp leted Laparoscopic bilateral oophorectomy Completed 1Impression: 1.Hepatomegaly with hepatic steatosis 2. Unremarkable gallbladder 3. No biliary ductal dilation 2Diagnostic Hysteroscopy NovaSure endometrial ablation Bilateral laparoscopic tubal ligation 3wnl/repeat 1 yr Results Laboratory List Name Date Basic Metabolic Panel (BASIC METAB PANEL ) 11/20/22 Hepatic Function Panel (HEPATIC FUNCT PA RIVER) 11/20/22 Lipid Profile (LIPOPROTEINS) 11/20/22 Most recent to oldest [Reference Range]: 1 eGFR CKD-EPI [>60 mL/min/1.73 m2] >90 mL /min/1.73 m2 1 (11/20/22 2:24 PM) Non-HDL 91 mg/dL 2 (11/20/22 2:24 PM) Estimated CrCl 105.39 mL/min (11/20/22 2:54 PM) Anion Gap [5-14 mmol/L] 8 mmol/L (11/20/22 2:24 PM) Alb [3.5-5.0 g/dL] 3.5 g/dL (11/20/22 2:24 PM) Alk Phos [38-126 unit/L] 155 unit/L *HI* (11/20/22 2:24 PM) ALT [<35 unit/L] 35 unit/L *HI* (11/20/22 2:24 PM) AST [15-46 unit/L] 150 unit/L *HI* (11/20/22 2:24 PM) BUN [7-20 mg/dL] 13 mg/dL (11/20/22 2:24 PM) Ca [8.4-10.2 mg/dL] 8.9 mg/dL (11/20/22 2:24 PM) Chol/HDL 4 (11/20/22 2:24 PM) Chol [125-200 mg/dL] 126 mg/dL (11/20/22 2:24 PM) Cl- [96-107 mmol/L] 108 mmol/L *HI* (11/20/22 2:24 PM) HCO3 [22-30 mmol/L] 24 mmol/L (11/20/22 2:24 PM) Cret [0.60-1.00 mg/dL] 0.77 mg/dL (11/20/22 2:24 PM) D Bili [0.0-0.6 mg/dL] 0.9 mg/dL *HI* (11/20/22 2:24 PM) Glu [74-106 mg/dL] 91 mg/dL (11/20/22 2:24 PM) HDL [>35 mg/dL] 35 mg/dL *LOW* (11/20/22 2:24 PM) K [3.5-5.1 mmol/L] 3.8 mmol/L (11/20/22 2:24 PM) LDL Chol, Calculated [50-130 mg/dL] 66 m g/dL (11/20/22 2:24 PM) Na [137-145 mmol/L] 140 mmol/L (11/20/22 2:24 PM) T Bili [0.2-1.3 mg/dL] 1.7 mg/dL *HI* (11/20/22 2:24 PM) Prot [6.3-8.2 g/dL] 7.4 g/dL 3 (11/20/22 2:24 PM) TG [<200 mg/dL] 126 mg/dL (11/20/22 2:24 PM) 1Result Comment: Testing Performed By: Dept of Pathology [facility] [address], [address], [place] [address] 2Result Comment: Testing Performed By: Dept of Pathology [facility] [address], [address], [place] [address] 3Result Comment: Testing Performed By: Dept of Pathology [facility] [address], [address], [place] [address] Social History Social History Type Response Tobacco Current every day sm oker, vaping Smoking Status Never smoked cigaret juan Sex Female Patient Care team information Personnel Name: MD Matthew Madhavi Address: Address: [address] [place] [address]
--- OUTSIDE RECORDS SUMMARY | 2023-06-01 01:48 | External Medical Summary | Continuity of Care Document ---
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 Name Role Phone Vipul Sarahi Primary Care Physician [phone] [id number] Date(s): 11/10/21 - 11/10/21 [facility] [address] [place] [address] Practice Site [address] [facility], [facility] [address] [place], [place] [address]Vcyda [phone] Encounter Diagnosis Acute URI(Discharge Diagnosis) - 11/10/21 Acute upper respiratory infection, unspecified(Final) - Discharge Disposition: Home or Self Care Attending Physician: MD Quick Jeffrey G Allergies, Adverse Reactions, Alerts Substance Reaction Severity Status Zomig peripheral numbness/tingling Active Imitrex peripheral neuropathic symptoms Active Immunizations Given and Recorded Vaccine Date Status Refusal Reason SARS-CoV-2 (COVID-19) mRNA-1273 vaccine 1 01/23/21 Recorded SARS-CoV-2 (COVID-19) mRNA-1273 vaccine 2 12/25/20 Recorded influenza virus vaccine, inactivated 08/01/18 Give n 1Result Comment: 2021-11-12: Historical information-source unspecified 2Result Comment: 2021-11-12: Historical information-source unspecified Medications amitriptyline 10 mg oral tablet Start: 08/05/21 9:00:00 EST, 1 tab, PO, qhs, Disp# 30 tab, Refills: 11, Pharmacy: [email or web address] Start Date: 08/05/21 Status: Ordered atenolol 100 mg oral tablet Start: 11/03/21 13:11:00 EST, See Instructions, Disp# 30 tab, Refills: 2, take 1 tablet by mouth once daily, Pharmacy: [facility] [place] [address] Start Date: 11/03/21 Status: Ordered Fioricet 325 mg-50 mg-40 mg oral tablet Start: 10/16/21 15:01:00 EST, 1 tab, PO, q6h, Disp# 30 tab, Refills: 1, PRN: as needed for headache, Pharmacy: [facility] [place] [address] Start Date: 10/16/21 Status: Ordered FLUoxetine 20 mg oral capsule Start: 10/20/21 11:35:00 EST, See Instructions, Disp# 30 cap, Refills: 5, take 1 capsule by mouth once daily, Pharmacy: [facility] [place] [address] Start Date: 10/20/21 Status: Ordered Maxalt 5 mg oral tablet Start: 10/14/20 17:41:00 EST, 1 tab, PO, ONCE, Disp# 9 tab, PRN: as needed for migraine headache, Pharmacy: [facility] Start Date: 10/14/20 Status: Ordered topiramate 50 mg oral tablet Start: 02/06/21 10:06:00 EDT, 1.5 tab, PO, Daily, Disp# 45 tab, Refills: 11, Pharmacy: [email or web address] Start Date: 02/06/21 Stop Date: 02/01/22 Status: Ordered Mental Status 11/10/21 Barriers to Learning one year None evide nt Mandatory Health Literacy Documentation Yes Health Literacy Communication Barriers N ever Primary Language Estonian Problem List Condition Effective Dates Status Health Status Inform ant Benign hypertension(Confirmed) Active Patellar contusion(Confirmed) Active Hamstring strain(Confirmed) Active Left knee pain(Confirmed) Active MIGRAINE(Confirmed) Active Patellar tendonitis(Confirmed) Active Tobacco abuse(Confirmed) Active Weight disorder(Confirmed) Active Diagnosis Diagnosis Type Effective Dates Health Status Clini yanni Service Informant Acute URI Discharge Diagnosis 11/10/21 Non-Specified Procedures Procedure Date Related Diagnosis Body Site Status Hysterectomy 1 12/11/13 Completed Pap smear for cervical cance r screening 2 10/23/13 Completed dental Completed Endometrial ablation Comp leted Laparoscopic bilateral oophorectomy Completed 1Diagnostic Hysteroscopy NovaSure endometrial ablation Bilateral laparoscopic tubal ligation 2wnl/repeat 1 yr Results Laboratory List Name Date COVID-19 Coronavirus Next Day (COVID19 N EXT DAY) 11/10/21 Most recent to oldest [Reference Range]: 1 COVID-19 Coronavirus PCR [COV19N] COVID 19 virus not detected 1 (11/10/21 1:45 PM) 1Result Comment: Test results reported to [place] [facility] This assay has been granted an Emergency Use Authorization (EUA) by the U.[place] Food and drug Administration: Specimen source Nasopharyngeal. The performance of the assay(AGENA) has been verified by the [facility]. Vital Signs Most recent to oldest [Reference Range]: 1 Temperature [36.5-37.9 DegC] 37 DegC (11/10/21 9:31 AM) Heart Rate 74 bpm (11/10/21 9:31 AM) Respiratory Rate 18 br/min (11/10/21 9:31 AM) Blood Pressure 122/74mmHg (11/10/21 9:31 AM) Cuff Pulse Pressure 48 mmHg (11/10/21 9:31 AM) Social History Social History Type Response Smoking Status Never smoked cigaret juan Sex Female
--- OUTSIDE RECORDS SUMMARY | 2023-06-01 01:48 | External Medical Summary | Continuity of Care Document ---
Author Name Unknown Organization 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 [address] [facility] [address] [facility] [place], [place] [phone] Encounter Diagnosis Elevation of levels of liver transaminase levels(Final) - Nausea with vomiting, unspecified(Final) - Discharge Disposition: Home or Self [...] Daily, Disp# 90 tab, Refills: 3, Pharmacy: [facility]/pharmacy #[id number] Start Date: 10/07/22 Status: Ordered Botox. Start: 07/01/22 15:52:00 EDT Start Date: 07/01/22 Status: Ordered Fioricet 325 mg-50 mg-40 mg oral tablet Start: 07/31/22 11:05:00 EDT, 1 tab, PO, q6h, Disp# 30 tab, Refills: 0, PRN: as needed for headache, [facility]acy: [facility] #[id number] Start Date: 07/31/22 Status: Ordered FLUoxetine 20 mg oral capsule Start: 10/05/22 11:44:00 EST, 1 cap, PO, Daily, Disp# 30 cap, Refills: 11, Pharmacy: [facility]/pharmacy #[id number] Start Date: 10/05/22 Stop Date: 09/30/23 Status: Ordered multivitamin Start: 09/25/22 13:20:00 EST, [...] to Pharmacy: please call patient KATHY -, Pharmacy:[facility]/pharmacy #[id number] Start Date: 10/05/22 Stop Date: 09/30/23 Status: [...] 100 g, PRN: Pain, Pharmacy: [facility] #[id number] Start Date: 07/01/22 Status: Ordered Zofran 4 [...] 1 yr Results Laboratory List Name Date Anti-Hepatitis A Total Anitbodies (ANTI- HEPATITIS A TOTAL AB) 10/23/22 Bilirubin, Direct (BILIRUBIN, DIRECT) Comprehensive Metabolic Panel (COMP META B PANEL) 10/23/22 Hepatitis B Core Antibody, IgG and IgM ( HEP B CORE AB G+M) 10/23/22 Hepatitis B Surface Antibody (HEP B SURF AB) 10/23/22 Hepatitis B Surface Antigen (HEP B SURF AG) 10/23/22 Hepatitis C Antibody (HEP C AB) 10/23/22 Lipase Level (LIPASE) 10/23/22 Most recent to oldest [Reference Range]: 1 eGFR CKD-EPI [>60 mL/min/1.73 m2] 89 mL/ min/1.73 m2 1 (10/23/22 2:18 PM) HBsAb Concentration [NR mIU/mL] NONREACT POPEYE mIU/mL (10/23/22 2:18 PM) Estimated CrCl 103.83 mL/min (10/23/22 2:57 PM) Anion Gap [5-14 mmol/L] 5 mmol/L (10/23/22 2:18 PM) Alb [3.5-5.0 g/dL] 3.5 g/dL (10/23/22 2:18 PM) Alk Phos [38-126 unit/L] 169 unit/L *HI* (10/23/22 2:18 PM) ALT [<35 unit/L] 48 unit/L *HI* (10/23/22 2:18 PM) AST [15-46 unit/L] 160 unit/L *HI* (10/23/22 2:18 PM) BUN [7-20 mg/dL] 7 mg/dL (10/23/22 2:18 PM) Ca [8.4-10.2 mg/dL] 9.0 mg/dL (10/23/22 2:18 PM) Cl- [96-107 mmol/L] 105 mmol/L (10/23/22 2:18 PM) HCO3 [22-30 mmol/L] 28 mmol/L (10/23/22 2:18 PM) HBcAb [NR] NONREACTIVE *Unknown* (10/23/22 2:18 PM) Cret [0.60-1.00 mg/dL] 0.78 mg/dL (10/23/22 2:18 PM) D Bili [0.0-0.6 mg/dL] 1.1 mg/dL 2 *HI* (10/23/22 2:18 PM) Glu [74-106 mg/dL] 113 mg/dL *HI* (10/23/22 2:18 PM) HBsAg [NR] NONREACTIVE *Unknown* (10/23/22 2:18 PM) HBsAb [NR] NONREACTIVE *Unknown* (10/23/22 2:18 PM) HCV Ab [NR] NONREACTIVE *Unknown* (10/23/22 2:18 PM) K [3.5-5.1 mmol/L] 4.2 mmol/L (10/23/22 2:18 PM) Lipase [13-60 unit/L] 19 unit/L (10/23/22 2:18 PM) Na [137-145 mmol/L] 138 mmol/L (10/23/22 2:18 PM) T Bili [0.2-1.3 mg/dL] 2.1 mg/dL *HI* (10/23/22 2:18 PM) Prot [6.3-8.2 g/dL] 6.9 g/dL (10/23/22 2:18 PM) Anti-Hepatitis A Total Anitbodies [NR] N ONREACTIVE *Unknown* (10/23/22 2:18 PM) 1Result Comment: Testing Performed By: Dept of Pathology [facility] [address], [address] [place] [address] [place] [address] 2Result Comment: Testing Performed By: Dept of Pathology [facility] [address], [address] [place] [address] [place] [address] Social History Social History Type Response Smoking Status Never smoked cigaret juan Sex Female Patient Care team information Personnel Name: MD Vipul, Sarahi Address: Address: [address] [place] [address]
--- OUTSIDE RECORDS SUMMARY | 2023-06-01 01:48 | External Medical Summary | Continuity of Care Document ---
Author Name Unknown Organization [place] [facility] [address] [place] [id number] Care Team Providers Care Char Conveyor Tender Cellar Name Role Phone Vipul Sarahi Primary Care Physician [phone] Encounter [facility] FINNBR [id number] Date(s): 09/09/22 - 09/09/22 [facility] [address] [place] [address] Practice Site [address] [facility] [address] [place], [place] [address]Xipsg [phone] Encounter Diagnosis Body mass index [BMI] 38.0-38.9, adult(Discharge Diagnosis) - 09/09/22 Nausea(Discharge Diagnosis) - 09/09/22 Diarrhea(Discharge Diagnosis) - 09/09/22 Vomiting(Discharge Diagnosis) - 09/09/22 Discharge Disposition: Home or Self Care Attending Physician: MD Yonathan [facility] Allergies, Adverse Reactions, Alerts Substance Reaction Severity Status Zomig peripheral numbness/tingling Active Imitrex peripheral neuropathic symptoms Active Assessment and Plan Extracted from: Title:Acute - GI sxs, abrupt SSRI cessation [facility] Date:09/09/22 1.Nausea Acute, uncomplicated illness/injury Goal:Resolution Data:_ Plan: Likely in the setting of SSRI withdrawal. Restart fluoxetine at previous dose. Directed to not take additional doses. Monitor symptoms. Zofran PRN for nausea. Return precautions given. If sxs fail toimprove could consider further workup with stool studies, imaging, CMP to eval for dehydration f/u PRN 2.Diarrhea See above. 3.Vomiting See above. Immunizations Given and Recorded Vaccine Date Status [...] 1 tablet by mouth once daily, Pharmacy: [facility] Start Date: 03/11/22 Status: Ordered Botox. Start: 07/01/22 15:52:00 EDT Start Date: 07/01/22 Status: Ordered Fioricet 325 mg-50 mg-40 mg oral tablet Start: 07/31/22 11:05:00 EDT, 1 tab, PO, q6h, Disp# 30 tab, Refills: 0, PRN: as needed for headache, Pharmacy: [facility] #[id number] Start Date: 07/31/22 Status: Ordered FLUoxetine 20 mg oral capsule Start: 05/13/22 11:41:00 EDT, See Instructions, Disp# 30 cap, Refills: 5, take 1 capsule by mouth once daily, Pharmacy: [facility] #[id number] Start Date: 05/13/22 Status: Ordered Nurtec ODT 75 mg oral tablet, disintegrating Start: 07/01/22 15:52:00 EDT Start Date: 07/01/22 Status: Ordered omeprazole 20 mg oral delayed release capsule Start: 09/09/22 10:09:00 EST, 1 cap, PO, Daily, Disp# 90 cap, Refills: 5, other Start Date: 09/09/22 Stop Date: 03/02/24 Status: Ordered Topamax 50 mg oral tablet Start: 07/01/22 16:10:00 EDT, See Instructions, Disp# 60 cap, 150 mg capsule XR, other Start Date: 07/01/22 Status: Ordered Voltaren 1% topical gel Start: 07/01/22 16:48:00 EDT, 1 appl, topical, qid, Disp# 100 g, PRN: Pain, Pharmacy: [facility] #[id number] Start Date: 07/01/22 Status: Ordered Zofran 4 mg oral tablet Start: 09/09/22 10:20:00 EST, 1 tab, PO, bid, Disp# 14 tab, PRN: as needed for nausea/vomiting, Pharmacy: [id number] Start Date: 09/09/22 Stop Date: 09/14/22 Status: Ordered Mental Status 09/09/22 Barriers to Learning one year None evide nt Mandatory Health Literacy Documentation Yes Health Literacy Communication Barriers N ever Primary Language Georgian Problem List Condition Confirmation Course Effective Dates Status Health St atus Informant Benign hypertension Confirmed Active Patellar contusion Confirmed Active Hamstring strain Confirmed Active Left knee pain Confirmed Active MIGRAINE Confirmed Active Patellar tendonitis Confirmed Active Tobacco abuse Confirmed Active Weight disorder Confirmed Active Diagnosis Diagnosis Type Effective Dates Health Status Cl inical Service Informant Body mass index [BMI] 38.0-38.9, adult Discharge Diagnosis 09/09/22 Non-Specified Nausea Discharge Diagnosis 09/09/22 Non-Specified Vomiting Discharge Diagnosis 09/09/22 Non-Specified Diarrhea Discharge Diagnosis 09/09/22 Non-Specified Procedures Procedure Date Related Diagnosis Body Site Status Hysterectomy 1 12/11/13 Completed Pap smear for cervical cance r screening 2 10/23/13 Completed dental Completed Endometrial ablation Comp leted Laparoscopic bilateral oophorectomy Completed 1Diagnostic Hysteroscopy NovaSure endometrial ablation Bilateral laparoscopic tubal ligation 2wnl/repeat 1 yr Vital Signs Most recent to oldest [Reference Range]: 1 Height 175 cm (09/09/22 9:52 AM) Patient Weight 117.9 kg (09/09/22 9:52 AM) Body Mass Index 38.5 kg/m2 (09/09/22 9:52 AM) Temperature [36.5-37.9 DegC] 36.7 DegC (09/09/22 9:52 AM) Heart Rate 71 bpm (09/09/22 9:52 AM) Respiratory Rate 16 br/min (09/09/22 9:52 AM) Blood Pressure 126/74mmHg (09/09/22 9:52 AM) BP Location # 1 Left Arm (09/09/22 9:52 AM) Social History Social History Type Response Smoking Status Never smoked cigaret juan Sex Female Patient Care team information Personnel Name: MD Vipul, Sarahi Address: Address: [address] [place] [address]
--- OUTSIDE RECORDS SUMMARY | 2023-06-01 01:48 | External Medical Summary | Continuity of Care Document ---
Author Name Unknown Organization [facility] [address] [address] [place] [phone] Care Team Providers Care Creative Assistant Name Role Phone Sarahi Matthew Primary Care Physician [phone] Encounter [facility] FINNBR [id number] Date(s): 09/25/22 - 09/25/22 [facility] [address] [place] [address] [address] [facility] Practice Site [facility], [facility] [address] [place], [place] [address]Ducnz [phone] Encounter Diagnosis Nausea(Discharge Diagnosis) - 09/25/22 Discharge Disposition: Home or Self Care Attending Physician: MD Kelly Joseph P Allergies, Adverse Reactions, Alerts Substance Reaction Severity Status Zomig peripheral numbness/tingling Active Imitrex peripheral neuropathic symptoms Active Assessment and Plan Extracted from: Title:Office Visit Note Author:DO Bañuelos Audrey Date:09/25/22 1.Nausea Discussed with patient this is likely viral, she should continue to advance her diet as tolerated. Will order zofran to assist with nausea. Advised patient to increase her famotidine to BID for better management of her GERD. Discussed with patient if her nausea abdominal pain does not improve by next week will consider GI consult. Immunizations Given and Recorded Vaccine Date Status [...] 1 tablet by mouth once daily, Pharmacy: [facility] Start Date: 03/11/22 Status: Ordered Botox. Start: 07/01/22 15:52:00 EDT Start Date: 07/01/22 Status: Ordered Fioricet 325 mg-50 mg-40 mg oral tablet Start: 07/31/22 11:05:00 EDT, 1 tab, PO, q6h, Disp# 30 tab, Refills: 0, PRN: as needed for headache, [facility]acy: [id number] Start Date: 07/31/22 Status: Ordered FLUoxetine 20 mg oral capsule Start: 05/13/22 11:41:00 EDT, See Instructions, Disp# 30 cap, Refills: 5, take 1 capsule by mouth once daily, Pharmacy: [facility] #[id number] Start Date: 05/13/22 Status: Ordered multivitamin Start: [...] 13:20:00 EST Start Date: 09/25/22 Status: Ordered Topamax 50 mg oral tablet Start: 09/25/22 14:02:00 EST, See Instructions, Disp# 60 cap, 150 mg capsule XR, Pharmacy: [facility] #[id number] Start Date: 09/25/22 Status: Ordered Voltaren 1% topical gel Start: 07/01/22 16:48:00 EDT, 1 appl, topical, qid, Disp# 100 g, PRN: Pain, Pharmacy: [facility] #[id number] Start Date: 07/01/22 Status: Ordered Zofran 4 mg oral tablet Start: 09/15/22 16:03:00 EST, 1 tab, PO, bid, Disp# 14 tab, PRN: as needed for nausea/vomiting, Pharmacy: [id number] Start Date: 09/15/22 Stop Date: 09/20/22 Status: Ordered Zofran 4 mg oral tablet Start: 09/25/22 13:56:00 EST, 1 tab, PO, tid, Disp# 15 tab, X 5 day, PRN: as needed for nausea/vomiting, Stop: 09/30/22 13:56:00 EST, Pharmacy: [facility][id number] Start Date: 09/25/22 Stop Date: 09/30/22 Status: Ordered Mental Status 09/25/22 Barriers to Learning one year None evide nt Mandatory Health Literacy Documentation Yes Health Literacy Communication Barriers N ever Primary Language Portuguese Problem List Condition Confirmation Course Effective Dates Status Health St atus Informant Benign hypertension Confirmed Active Patellar contusion Confirmed Active Hamstring strain Confirmed Active Left knee pain Confirmed Active MIGRAINE Confirmed Active Patellar tendonitis Confirmed Active Tobacco abuse Confirmed Active Weight disorder Confirmed Active Diagnosis Diagnosis Type Effective Dates Health Status Clini yanni Service Informant Nausea Discharge Diagnosis 09/25/22 Procedures Procedure Date Related Diagnosis Body Site Status Hysterectomy 1 12/11/13 Completed Pap smear for cervical cance r screening 2 10/23/13 Completed dental Completed Endometrial ablation Comp leted Laparoscopic bilateral oophorectomy Completed 1Diagnostic Hysteroscopy NovaSure endometrial ablation Bilateral laparoscopic tubal ligation 2wnl/repeat 1 yr Vital Signs Most recent to oldest [Reference Range]: 1 Temperature [36.5-37.9 DegC] 36.6 DegC (09/25/22 1:25 PM) Respiratory Rate 18 br/min (09/25/22 1:25 PM) Blood Pressure 124/78mmHg (09/25/22 1:25 PM) Cuff Pulse Pressure 46 mmHg (09/25/22 1:25 PM) Social History Social History Type Response Smoking Status Never smoked cigaret juan Sex Female Patient Care team information Personnel Name: MD Matthew Madhavi Address: Address: [facility] [address]
--- OUTSIDE RECORDS SUMMARY | 2023-06-01 01:48 | External Medical Summary | Continuity of Care Document ---
Author Name Unknown Organization [facility] [address] [place] [address] [address] [id number] Care Team Providers Care Maintenance Advisor Name Role Phone Sarahi Matthew Primary Care Physician [phone] Encounter [facility] FINNBR [id number] Date(s): 12/22/22 - 12/22/22 [facility] 0 [facility] 207 [facility] Practice Site 1850 [facility], [facility] [address] [place], [place] [address]Nsprp [place] [phone] Encounter Diagnosis Body mass index [BMI] 37.0-37.9, adult(Discharge Diagnosis) - 12/22/22 Concussion(Discharge Diagnosis) - 12/22/22 Migraine(Discharge Diagnosis) - 12/22/22 Vertigo(Discharge Diagnosis) - 12/23/22 Discharge Disposition: Home or Self Care Attending Physician: MD Yonathan [place] Allergies, Adverse Reactions, Alerts Substance Reaction Severity Status Zomig peripheral numbness/tingling Active Imitrex peripheral neuropathic symptoms Active Assessment and Plan Extracted from: Title:Office Visit Note Author:MD Narendra, Manohar Date:12/22/22 1.Concussion acute goal: resolution data: n/a plan:Considered this dx given patient hitting her head hard on the ground during the fall. She has headache and 1 episode.Difficult to discernwhether her symptoms are from her chronic migrainesor if there are new symptoms from concussion. scat5 symptom eval. 4 symptoms. 17/[address] symptom severity. stat head ct w/o con. result: negative. no acute intracranial abnormalities. location of LONG posterior to temples. not ttp. has had since childhood. lower susp for gca at this time. reported bruising of body. no xray of sacrum at this time elev lfts: being worked up by pcp. has gi referral. Needs work note for yest and today. carmen provide. 2.Migraine chronic goal: control of symptoms data: n/a plan:continue home regimen. Current LONG of 12 days (onset preceded concussion by 10 days) w/ symptoms severity similar to her usual, 03/06, reassuring. Body mass index [BMI] 37.0-37.9, adult Immunizations Given and Recorded Vaccine Date Status [...] Daily, Disp# 90 tab, Refills: 3, Pharmacy: [facility]/pharmacy #[id number] Start Date: 10/07/22 Status: Ordered Botox. Start: 07/01/22 15:52:00 EDT Start Date: 07/01/22 Status: Ordered Fioricet 325 mg-50 mg-40 mg oral tablet Start: 12/15/22 16:14:00 EDT, 1 tab, PO, q6h, Disp# 30 tab, Refills: 0, PRN: as needed for headache, Pharmacy: [facility] #[id number] Start Date: 12/15/22 Status: Ordered FLUoxetine 20 mg oral capsule Start: 10/28/22 16:57:00 EST, 1 cap, PO, Daily, Disp# 90 cap, Refills: 3, Pharmacy: [facility] #[id number] Start Date: 10/28/22 Stop Date: 10/23/23 Status: Ordered meclizine 12.5 mg oral tablet Start: 12/23/22 17:10:00 EDT, 1 tab, PO, tid, Disp# 10 tab, X 5 day, PRN: as needed for dizziness, Stop: 12/28/22 17:10:00 EDT, Pharmacy: [facility] #[id number] Start Date: 12/23/22 Stop Date: 12/28/22 Status: Ordered multivitamin Start: 09/25/22 13:20:00 EST, [...] to Pharmacy: please call patient KATHY -, Pharmacy:[facility]/pharmacy #[id number] Start Date: 10/05/22 Stop Date: 09/30/23 Status: [...] 100 g, PRN: Pain, Pharmacy: [facility] #[id number] Start Date: 07/01/22 Status: Ordered Zofran 4 mg oral tablet Start: 10/05/22 11:45:00 EST, 1 tab, PO, bid, Disp# 30 tab, Refills: 1, PRN: as needed for nausea/vomiting, Pharmacy: [facility]/pharmacy #[id number] Start Date: 10/05/22 Stop Date: 10/25/22 Status: Ordered Mental Status 3/28/23 Barriers to Learning one year None evide nt Mandatory Health Literacy Documentation Yes Health Literacy Communication Barriers N ever Primary Language Japanese Problem List Condition Confirmation Course Effective Dates Status Health St atus Informant Benign hypertension Confirmed Active MIGRAINE Confirmed Active Patellar tendonitis Confirmed Active Prediabetes Confirmed Active Tobacco abuse Confirmed Active Weight disorder Confirmed Active Diagnosis Diagnosis Type Effective Dates Health Status Clinical Service Informant Concussion Discharge Diagnosis 12/22/22 Migraine Discharge Diagnosis 12/22/22 Body mass index [BMI] 37.0-37.9, adult Discharge Diagnosis 12/22/22 Non-Specified Vertigo Discharge Diagnosis 12/23/22 Non-Specified Procedures Procedure Date Related Diagnosis Body Site Status CT of head without contrast 1 12/22/22 Completed US scan of right upper abdomen 2 10/14/22 Completed Hysterectomy 3 12/11/13 Completed Pap smear for cervical cance r screening 4 10/23/13 Completed dental Completed Endometrial ablation Comp leted Laparoscopic bilateral oophorectomy Completed 1FINDINGS: No acute intracranial hemorrhage, midline shift, intracranial mass, hydrocephalus, territorial ischemia or abnormal extra-axial collection. Mild involutional changes. Minimal nonspecific white matter hypodensities are again noted. The calvarium is intact. The paranasal sinuses, mastoid air cells, and middle ear cavities are clear. IMPRESSION: No acute intracranial abnormality. 2Impression: 1.Hepatomegaly with hepatic steatosis 2. Unremarkable gallbladder 3. No biliary ductal dilation 3Diagnostic Hysteroscopy NovaSure endometrial ablation Bilateral laparoscopic tubal ligation 4wnl/repeat 1 yr Vital Signs Most recent to oldest [Reference Range]: 1 Height 175.3 cm (12/22/22 10:10 AM) Patient Weight 116 kg (12/22/22 10:10 AM) Body Mass Index 37.75 kg/m2 (12/22/22 10:10 AM) Temperature [36.5-37.9 DegC] 36.7 DegC (12/22/22 10:10 AM) Heart Rate 70 bpm (12/22/22 10:10 AM) Blood Pressure 128/80mmHg (12/22/22 10:10 AM) Cuff Pulse Pressure 48 mmHg (12/22/22 10:10 AM) BP Location # 1 Right Arm (12/22/22 10:10 AM) Social History Social History Type Response Tobacco Current every day sm oker, vaping Smoking Status Never smoked cigaret juan Sex Female Patient Care team information Personnel Name: MD Matthew Madhavi Address: Address: [address] [place] [address] [place]
--- OUTSIDE RECORDS SUMMARY | 2023-06-01 01:48 | External Medical Summary | Continuity of Care Document ---
Author Name Unknown Organization [facility] [address] [address] [place] [phone] Care Team Providers Care Biodiesel Process Control Technician Name Role Phone Vipul Sarahi Primary Care Physician [phone] Encounter [facility] FINNBR [id number] Date(s): 03/11/22 - 03/11/22 [facility] [address] [place] [address] Practice Site 1850 [facility] [address] [place], [place] [address]Qktsw [phone] Encounter Diagnosis Vomiting(Discharge Diagnosis) - 03/11/22 Gastroenteritis(Discharge Diagnosis) - 03/11/22 Discharge Disposition: Home or Self Care Attending Physician: MD Donohue Michael Allergies, Adverse Reactions, Alerts Substance Reaction Severity [...] qhs, Disp# 30 tab, Refills: 11, Pharmacy: [facility] [place] [address] Start Date: 08/05/21 Status: Ordered atenolol 100 mg oral tablet Start: 03/11/22 10:51:00 EDT, See Instructions, Disp# 30 tab, Refills: 2, take 1 tablet by mouth once daily, Pharmacy: [address] Start Date: 03/11/22 Status: Ordered atenolol 100 mg oral tablet Start: 03/11/22 13:19:00 EDT, See Instructions, Disp# 30 tab, Refills: 2, take 1 tablet by mouth once daily, Pharmacy: [address] Start Date: 03/11/22 Status: Ordered Fioricet 325 mg-50 mg-40 mg oral tablet Start: 12/25/21 14:15:00 EDT, 1 tab, PO, q6h, Disp# 30 tab, Refills: 1, PRN: as needed for headache, Pharmacy: [address] Start Date: 12/25/21 Status: Ordered FLUoxetine 20 mg oral capsule Start: 10/20/21 11:35:00 EST, See Instructions, Disp# 30 cap, Refills: 5, take 1 capsule by mouth once daily, Pharmacy: [address] Start Date: 10/20/21 Status: Ordered Maxalt 5 mg oral tablet Start: 10/14/20 17:41:00 EST, 1 tab, PO, ONCE, Disp# 9 tab, PRN: as needed for migraine headache, Pharmacy: [address] Start Date: 10/14/20 Status: Ordered topiramate 50 mg oral tablet Start: 02/06/21 10:06:00 EDT, 1.5 tab, PO, Daily, Disp# 45 tab, Refills: 11, Pharmacy: [address] Start Date: 02/06/21 Stop Date: 02/01/22 Status: Ordered Zofran ODT 4 mg oral tablet, disintegrating Start: 03/11/22 10:49:00 EDT, 1 tab, PO, tid, Disp# 12 tab, PRN: as needed for nausea/vomiting, Pharmacy: [address] Start Date: 03/11/22 Stop Date: 03/14/22 Status: Ordered Mental Status 03/11/22 Barriers to Learning one year None evide nt Mandatory Health Literacy Documentation Yes Health Literacy Communication Barriers N ever Primary Language Syriac Problem List Condition Effective Dates Status Health Status Inform ant Benign hypertension(Confirmed) Active Patellar contusion(Confirmed) Active Hamstring strain(Confirmed) Active Left knee pain(Confirmed) Active MIGRAINE(Confirmed) Active Patellar tendonitis(Confirmed) Active Tobacco abuse(Confirmed) Active Weight disorder(Confirmed) Active Diagnosis Diagnosis Type Effective Dates Health Status Cl inical Service Informant Vomiting Discharge Diagnosis 03/11/22 Non-Specified Gastroenteritis Discharge Diagnosis 03/11/22 Non-Specified Procedures Procedure Date Related Diagnosis Body Site Status Hysterectomy 1 12/11/13 Completed Pap smear for cervical cance r screening 2 10/23/13 Completed dental Completed Endometrial ablation Comp leted Laparoscopic bilateral oophorectomy Completed 1Diagnostic Hysteroscopy NovaSure endometrial ablation Bilateral laparoscopic tubal ligation 2wnl/repeat 1 yr Social History Social History Type Response Smoking Status Never smoked cigaret juan Sex Female Care Team Personnel Name: MD Vipul, Sarahi Address: [facility] [address] [address] [place]
--- OUTSIDE RECORDS SUMMARY | 2023-06-01 01:48 | External Medical Summary | Continuity of Care Document ---
Author Name Unknown Organization [facility] [address] Address [address] [address] Care Team Providers Care Plastic Sewer Name Role Phone Sarahi Matthew Primary Care Physician [phone] Encounter [facility] [id number] Date(s): 05/12/21 - 05/12/21 [facility] 207 [facility] Practice Site 1850 [facility], [facility] 207 [place], [place] [address]Imdtd [place] [phone] Encounter Diagnosis Contact with and (suspected) exposure to covid-19(Discharge Diagnosis) - 05/12/21 Migraine headache(Discharge Diagnosis) - 05/12/21 Discharge Disposition: Home or Self Care Attending Physician: MD Marie Jonathan D Allergies, Adverse Reactions, Alerts Substance Reaction Severity Status Zomig peripheral numbness/tingling Active Imitrex peripheral neuropathic symptoms Active Assessment and Plan Extracted from: Title:TeleHealth Visit Note Author:DO Chang Marina Date:05/12/21 Contact with and (suspected) exposure to covid-19 Acute, uncomplicated illness/injury Goal: Resolution Data: unique tests ordered:COVID 19 PCR Plan: Likely viral in etiology, and has had COVID 19 exposure. Will test with COVID 19 PCR. Note for work written until test results come back, longer if positive. Otherwise quarantine and symptom manage with guaifenesin, Tylenol, nasal/throat sprays, PO water intake. Migraine headache Chronic condition exacerbated/progressive/side effects of treatment Goal: Symptom control Plan: Did recommend patient call Neurology office to schedule follow up appointment to consider biologics. Continue amitriptyline and Topamax for now. Immunizations Given and Recorded Vaccine Date Status Refusal Reason influenza virus vaccine, inactivated 08/01/18 Give n Medications amitriptyline 10 mg oral tablet Start: 03/25/21 13:04:00 EDT, 1 tab, PO, qhs, Disp# 30 tab, Refills: 3, Pharmacy: [address] Start Date: 03/25/21 Status: Ordered atenolol 100 mg oral tablet Start: 05/07/21 8:52:00 EDT, See Instructions, Disp# 30 tab, Refills: 2, take 1 tablet by mouth once daily, Pharmacy: [address] Start Date: 05/07/21 Status: Ordered Fioricet 325 mg-50 mg-40 mg oral tablet Start: 03/10/21 19:01:00 EDT, 1 tab, PO, q6h, Disp# 30 tab, Refills: 1, PRN: as needed for headache, Pharmacy: [address] Start Date: 03/10/21 Status: Ordered FLUoxetine 20 mg oral capsule Start: 04/11/21 19:03:00 EDT, See Instructions, Disp# 30 cap, Refills: 5, take 1 capsule by mouth once daily, Pharmacy: [address] Start Date: 04/11/21 Status: Ordered Maxalt 5 mg oral tablet Start: 10/14/20 17:41:00 EST, 1 tab, PO, ONCE, Disp# 9 tab, PRN: as needed for migraine headache, Pharmacy: [address] Start Date: 10/14/20 Status: Ordered topiramate 50 mg oral tablet Start: 02/06/21 10:06:00 EDT, 1.5 tab, PO, Daily, Disp# 45 tab, Refills: 11, Pharmacy: [address] Start Date: 02/06/21 Stop Date: 02/01/22 Status: Ordered Mental Status 05/12/21 Barriers to Learning one year None evide nt Mandatory Health Literacy Documentation Yes Health Literacy Communication Barriers N ever Problem List Condition Effective Dates Status Health Status Inform ant Benign hypertension(Confirmed) Active Patellar contusion(Confirmed) Active Hamstring strain(Confirmed) Active Left knee pain(Confirmed) Active MIGRAINE(Confirmed) Active Patellar tendonitis(Confirmed) Active Tobacco abuse(Confirmed) Active Weight disorder(Confirmed) Active Diagnosis Diagnosis Type Effective Dates Health Status Cl inical Service Informant Contact with and (suspected) exposure to covid-19 Discharge Diagnosis 05/12/21 Non-Specified Migraine headache Discharge Diagnosis 05/12/21 Non-Specified Procedures Procedure Date Related Diagnosis Body Site Status Hysterectomy 1 12/11/13 Completed Pap smear for cervical cance r screening 2 10/23/13 Completed dental Completed Endometrial ablation Comp leted Laparoscopic bilateral oophorectomy Completed 1Diagnostic Hysteroscopy NovaSure endometrial ablation Bilateral laparoscopic tubal ligation 2wnl/repeat 1 yr Social History Social History Type Response Smoking Status Current some day lig ht smoker Sex Female
--- OUTSIDE RECORDS SUMMARY | 2023-06-01 01:48 | External Medical Summary | Continuity of Care Document ---
Author Name Unknown Organization [facility] [address] REINA 1 Address [address] [facility], [place] [id number] Care Team Providers Care Laminating Machine Tender Name Role Phone Sarahi Matthew Primary Care Physician [phone] [id number] Date(s): 10/09/22 - 10/09/22 [facility] [address] 1 [facility] [address], [facility] 1 [place], [place] [phone] Encounter Diagnosis Nausea(Final) - Diarrhea, unspecified(Final) - Discharge Disposition: Home or Self Care Attending Physician: DO Dubon Gretchen Elizabeth Referring Physician: DO Dubon Gretchen Elizabeth Allergies, Adverse [...] Daily, Disp# 90 tab, Refills: 3, Pharmacy: [facility]/pharmacy #[id number] Start Date: 10/07/22 Status: Ordered Botox. Start: 07/01/22 15:52:00 EDT Start Date: 07/01/22 Status: Ordered Fioricet 325 mg-50 mg-40 mg oral tablet Start: 07/31/22 11:05:00 EDT, 1 tab, PO, q6h, Disp# 30 tab, Refills: 0, PRN: as needed for headache, Pharmacy: [facility] #[id number] Start Date: 07/31/22 Status: Ordered FLUoxetine 20 mg oral capsule Start: 10/05/22 11:44:00 EST, 1 cap, PO, Daily, Disp# 30 cap, Refills: 11, Pharmacy: [facility]/pharmacy #[id number] Start Date: 10/05/22 Stop Date: 09/30/23 [...] to Pharmacy: please call patient KATHY -, Pharmacy:[facility]/pharmacy #[id number] Start Date: 10/05/22 Stop Date: 09/30/23 [...] qid, Disp# 100 g, PRN: Pain, Pharmacy: [facility] #[id number] Start Date: 07/01/22 Status: Ordered Zofran 4 [...] 1 yr Results Laboratory List Name Date C Reactive Protein, Quantitation (CRP QU ANTITATION) 10/09/22 Complete Blood Count w Differential (CBC ,DIFFH) 10/09/22 Comprehensive Metabolic Panel (COMP META B PANEL) 10/09/22 Immunoglobulin A (IGA) 10/09/22 Magnesium Level (MAGNESIUM) 10/09/22 Most recent to oldest [Reference Range]: 1 CReacProt [<0.50 mg/dL] 1.92 mg/dL *HI* (10/09/22 11:53 AM) eGFR CKD-EPI [>60 mL/min/1.73 m2] 83 mL/ min/1.73 m2 1 (10/09/22 11:53 AM) Estimated CrCl 97.58 mL/min (10/09/22 12:31 PM) MPV [9.0-12.2 fL] 9.2 fL (10/09/22 11:53 AM) Immature Gran% 0.3 % (10/09/22 11:53 AM) Neut% 66.1 % (10/09/22 11:53 AM) Lymph% 25.1 % (10/09/22 11:53 AM) Greenbrier% 5.7 % (10/09/22 11:53 AM) Baso% 0.9 % (10/09/22 11:53 AM) Eos% 1.9 % (10/09/22 11:53 AM) Immat Gran, Abs [0-0.4 K/uL] 0.02 K/uL 2 (10/09/22 11:53 AM) Neut, Abs [2.0-7.7 K/uL] 5.11 K/uL (10/09/22 11:53 AM) Lymph, Abs [1.0-3.4 K/uL] 1.94 K/uL (10/09/22 11:53 AM) Greenbrier, Abs [0-1.0 K/uL] 0.44 K/uL (10/09/22 11:53 AM) Baso, Abs [0-0.1 K/uL] 0.07 K/uL (10/09/22 11:53 AM) Eos, Abs [0-0.5 K/uL] 0.15 K/uL (10/09/22 11:53 AM) Type of Diff: AUTO *Unknown* (10/09/22 11:53 AM) RDW [11.5-14.2 %] 15.0 % *HI* (10/09/22 11:53 AM) Anion Gap [5-14 mmol/L] 6 mmol/L (10/09/22 11:53 AM) Alb [3.5-5.0 g/dL] 3.6 g/dL (10/09/22 11:53 AM) Alk Phos [38-126 unit/L] 162 unit/L *HI* (10/09/22 11:53 AM) ALT [<35 unit/L] 36 unit/L *HI* (10/09/22 11:53 AM) AST [15-46 unit/L] 169 unit/L *HI* (10/09/22 11:53 AM) BUN [7-20 mg/dL] 6 mg/dL *LOW* (10/09/2253 AM) Ca [8.4-10.2 mg/dL] 8.7 mg/dL (10/09/22 11:53 AM) Cl- [96-107 mmol/L] 100 mmol/L (10/09/22 11:53 AM) HCO3 [22-30 mmol/L] 32 mmol/L *HI* (10/09/22 11:53 AM) Cret [0.60-1.00 mg/dL] 0.83 mg/dL (10/09/22 11:53 AM) Glu [74-106 mg/dL] 119 mg/dL *HI* (10/09/22 11:53 AM) Hct [35-44 %] 37.8 % (10/09/22 11:53 AM) Hgb [11.7-15.0 g/dL] 12.6 g/dL (10/09/22 11:53 AM) IgA [70-400 mg/dL] 353 mg/dL (10/09/22 11:53 AM) K [3.5-5.1 mmol/L] 3.3 mmol/L *LOW* (10/09/22:53 AM) MCH [28-33 pg] 39.0 pg *HI* (10/09/22 11:53 AM) MCHC [32-36 g/dL] 33.3 g/dL (10/09/22 11:53 AM) MCV [81-96 fL] 117.0 fL *HI* (10/09/22 11:53 AM) Mg [1.6-2.3 mg/dL] 1.7 mg/dL 3 (10/09/22 11:53 AM) Na [137-145 mmol/L] 138 mmol/L (10/09/22 11:53 AM) Plts [150-350 K/uL] 151 K/uL (10/09/22 11:53 AM) RBC [3.90-5.00 M/uL] 3.23 M/uL *LOW* (10/09/22 11:53 AM) T Bili [0.2-1.3 mg/dL] 2.1 mg/dL *HI* (10/09/22 11:53 AM) Prot [6.3-8.2 g/dL] 6.8 g/dL (10/09/22 11:53 AM) WBC [4.0-10.4 K/uL] 7.73 K/uL (10/09/22 11:53 AM) 1Result Comment: Testing Performed By: Dept of Pathology [facility] [address], [address], [place] [address] 2Result Comment: Testing Performed By: Dept of Pathology [facility] [address], [address] [place] [address] 3Result Comment: Testing Performed By: Dept of Pathology [facility] [address], [address], [place] [address] Social History Social History Type Response Smoking Status Never smoked cigaret juan Sex Female Patient Care team information Personnel Name: MD Matthew Madhavi Address: Address: [facility] [address] [place] [address]
--- OUTSIDE RECORDS SUMMARY | 2023-06-01 01:48 | External Medical Summary | Continuity of Care Document ---
Author Name Unknown Organization [place] [address] [address] [phone] Care Team Providers Care Adjunct Faculty Name Role Phone Sarahi Matthew Primary Care Physician [phone] Encounter [facility] [id number] Date(s): 10/26/22 - 10/26/22 [facility] Practice [facility] 1850 [facility], [facility] 207 [place], [place] [address] [phone] Encounter Diagnosis HTN (hypertension)(Discharge Diagnosis) - 10/07/22 Body mass index [BMI] 38.0-38.9, adult(Discharge Diagnosis) - 10/26/22 Screen for colon cancer(Discharge Diagnosis) - 10/26/22 Screening cholesterol level(Discharge Diagnosis) - 10/26/22 Screening for diabetes mellitus(Discharge Diagnosis) - 10/26/22 Skin tag(Discharge Diagnosis) - 10/26/22 Patellar tendonitis(Discharge Diagnosis) - 10/26/22 Migraine(Discharge Diagnosis) - 10/01/22 Transaminitis(Discharge Diagnosis) - 10/26/22 Annual physical exam(Discharge Diagnosis) - 10/26/22 Discharge Disposition: Home or Self Care Attending Physician: MD Mcmanus Christopher Allergies, Adverse Reactions, Alerts Substance Reaction Severity Status Zomig peripheral numbness/tingling Active Imitrex peripheral neuropathic symptoms Active Assessment and Plan Extracted from: Title:FCM - CPE, transaminitis Author:MD Mcmanus Christopher Date:10/26/22 1.Annual physical exam - encouraged diet and exercise regimen appropriate for patient age and condition - routine dental and eye care per continuity - vaccinations reviewed and requires updates as ordered -screening labs ordered -routine mammography encouraged per guidance and history- orders placed. RTO for WWV because ?hysterectomy by history but not to patient recollection - screening for colon cancerreviewed - colonoscopy order placed _ 2.Transaminitis Undifferentiated new problem with uncertain prognosis Goal:evaluation Data:repeat LFTsin 2-4weeks Plan: - stable LFTs with resolution of overt symptoms and neg hepatitis labs, CBC, CMP previously - refer to gastroenterology following 2nd set of labs to re-assess (to engage sooner with symptoms) - reiterate precautions 3.Patellar tendonitis Chronic condition exacerbated/progressive/side effects of treatment Goal:improve function, decrease pain Data:none Plan: - encourage get XR - PT referral placed to improve pain, gait, activity - precautions re: worsening/changing sx, supportive care, avoid APAP 4.Migraine Essentially resolved following dietary change and improved CPAP adherence Immunizations Given and Recorded Vaccine Date Status [...] Daily, Disp# 90 tab, Refills: 3, Pharmacy: [facility]/pharmacy #[id number] Start Date: 10/07/22 Status: Ordered Botox. Start: 07/01/22 15:52:00 EDT Start Date: 07/01/22 Status: Ordered Fioricet 325 mg-50 mg-40 mg oral tablet Start: 07/31/22 11:05:00 EDT, 1 tab, PO, q6h, Disp# 30 tab, Refills: 0, PRN: as needed for headache, Pharmacy: [facility] #[id number] Start Date: 07/31/22 Status: Ordered FLUoxetine 20 mg oral capsule Start: 10/28/22 16:57:00 EST, 1 cap, PO, Daily, Disp# 90 cap, Refills: 3, Pharmacy: [facility]/pharmacy #[id number] Start Date: 10/28/22 Stop Date: 10/23/23 [...] to Pharmacy: please call patient KATHY -, Pharmacy:[facility]/pharmacy #[id number] Start Date: 10/05/22 Stop Date: 09/30/23 [...] 100 g, PRN: Pain, Pharmacy: [facility] #[id number] Start Date: 07/01/22 Status: Ordered Zofran 4 mg oral tablet Start: 10/05/22 11:45:00 EST, 1 tab, PO, bid, Disp# 30 tab, Refills: 1, PRN: as needed for nausea/vomiting, Pharmacy: [facility]/pharmacy #[id number] Start Date: 10/05/22 Stop Date: 10/25/22 Status: Ordered Mental Status 10/26/22 Barriers to Learning one year None evide nt Mandatory Health Literacy Documentation Yes Health Literacy Communication Barriers N ever Primary Language Welsh Problem List Condition Confirmation Course Effective Dates Status Health St atus Informant Benign hypertension Confirmed Active MIGRAINE Confirmed Active Patellar tendonitis Confirmed Active Tobacco abuse Confirmed Active Weight disorder Confirmed Active Diagnosis Diagnosis Type Effective Dates Health Status Clinical Service Informant Migraine Discharge Diagnosis 10/01/22 Non-Specified HTN (hypertension) Discharge Diagnosis 10/07/22 Non-Specified Screen for colon cancer Discharge Diagnosis 10/26/22 Non-Specified Screening for diabetes mellitus Discharge Diagnosis 10/26/22 Non-Specified Screening cholesterol level Discharge Diagnosis 10/26/22 Non-Specified Transaminitis Discharge Diagnosis 10/26/22 Non-Specified Body mass index [BMI] 38.0-38.9, adult Discharge Diagnosis 10/26/22 Non-Specified Annual physical exam Discharge Diagnosis 10/26/22 Skin tag Discharge Diagnosis 10/26/22 Non-Specified Patellar tendonitis Discharge Diagnosis 10/26/22 Procedures Procedure Date Related Diagnosis Body Site [...] Bilateral laparoscopic tubal ligation 3wnl/repeat 1 yr Vital Signs Most recent to oldest [Reference Range]: 1 Height 175.3 cm (10/26/22 3:55 PM) Patient Weight 119.8 kg (10/26/22 3:55 PM) Body Mass Index 38.98 kg/m2 (10/26/22 3:55 PM) Temperature [36.5-37.9 DegC] 36.7 DegC (10/26/22 3:55 PM) Respiratory Rate 18 br/min (10/26/22 3:55 PM) Blood Pressure 122/72mmHg (10/26/22 3:55 PM) Cuff Pulse Pressure 50 mmHg (10/26/22 3:55 PM) Social History Social History Type Response Tobacco Current every day sm oker, vaping Smoking Status Never smoked cigaret juan Sex Female Patient Care team information Personnel Name: MD Matthew Madhavi Address: Address: [facility] [address]
--- OUTSIDE RECORDS SUMMARY | 2023-06-01 01:48 | External Medical Summary | Continuity of Care Document ---
Author Name Unknown Organization [place] [address] [address] [phone] Care Team Providers Care Tie Hacker Name Role Phone Sarahi Matthew Primary Care Physician [phone] Encounter [facility] [id number] Date(s): 11/25/22 - 11/25/22 [facility] 207 [facility] Practice Site 1850 [facility], [facility] 207 [place], [place] [address] [phone] Encounter Diagnosis Body mass index [BMI] 38.0-38.9, adult(Discharge Diagnosis) - 11/25/22 Transaminitis(Discharge Diagnosis) - 11/25/22 Migraine(Discharge Diagnosis) - 10/28/22 Weight disorder(Discharge Diagnosis) - 11/25/22 Prediabetes(Discharge Diagnosis) - 11/25/22 Discharge Disposition: Home or Self Care Attending Physician: MD Mcmanus Christopher Allergies, Adverse Reactions, Alerts Substance Reaction Severity Status Zomig peripheral numbness/tingling Active Imitrex peripheral neuropathic symptoms Active Assessment and Plan Extracted from: Title:[facility] - migraine, LFTs, preDM Author:MD Mcmanus Christopher Date:11/25/22 1.Transaminitis Chronic condition, stable Goal:further evaluation Data:LFTs Plan: - repeat LFTs improved but not resolved - US RUQ w/ hepatomegaly and steatosis, last LFT in 2011 nl except mildly elevated AST - strongly encourage f/u with GI referral as ordered - encourage weight loss, dietary avoidance of hepatoactive medication 2.Migraine Chronic condition exacerbated/progressive/side effects of treatment Goal:reoslution Data:none Plan: - reviewed options for management - could do small dose toradol in office today, nurtec, restart fioricet - patient requests will do nurtec dose at home, defers toradol today, has not used fioricet in a long time 3.Weight disorder Chronic condition, stable Goal:10% weightloss Data:none Plan: - has done GREAT with lifestyle modification in the last month (down 7 lbs) - encourage exercise, supportive care and follow up for WWV and check Time:Total time spent with this patient on day of evaluation including chart review, ordering, education and coordination of care elements:35 minutes Immunizations Given and Recorded Vaccine Date Status [...] Daily, Disp# 90 tab, Refills: 3, Pharmacy: [facility]/pharmacy #[id number] Start Date: 10/07/22 Status: Ordered Botox. Start: 07/01/22 15:52:00 EDT Start Date: 07/01/22 Status: Ordered Fioricet 325 mg-50 mg-40 mg oral tablet Start: 07/31/22 11:05:00 EDT, 1 tab, PO, q6h, Disp# 30 tab, Refills: 0, PRN: as needed for headache, Pharmacy: [facility] #[id number] Start Date: 07/31/22 Status: Ordered FLUoxetine 20 mg oral capsule Start: 10/28/22 16:57:00 EST, 1 cap, PO, Daily, Disp# 90 cap, Refills: 3, Pharmacy: [facility]/pharmacy #[id number] Start Date: 10/28/22 Stop Date: [...] to Pharmacy: please call patient KATHY -, Pharmacy:[facility]/pharmacy #[id number] Start Date: 10/05/22 Stop Date: 09/30/23 Status: [...] 100 g, PRN: Pain, [facility]: [facility] #[id number] Start Date: 07/01/22 Status: Ordered Zofran 4 mg oral tablet Start: 10/05/22 11:45:00 EST, 1 tab, PO, bid, Disp# 30 tab, Refills: 1, PRN: as needed for nausea/vomiting, Pharmacy: [facility]/pharmacy #[id number] Start Date: 10/05/22 Stop Date: 10/25/22 Status: Ordered Mental Status 11/25/22 Barriers to Learning one year None evide nt Mandatory Health Literacy Documentation Yes Health Literacy Communication Barriers N ever Primary Language British [place] Islander Problem List Condition Confirmation Course Effective Dates Status Health St atus Informant Benign hypertension Confirmed Active MIGRAINE Confirmed Active Patellar tendonitis Confirmed Active Prediabetes Confirmed Active Tobacco abuse Confirmed Active Weight disorder Confirmed Active Diagnosis Diagnosis Type Effective Dates Health Status Clinical Service Informant Migraine Discharge Diagnosis 10/28/22 Non-Specified Body mass index [BMI] 38.0-38.9, adult Discharge Diagnosis 11/25/22 Non-Specified Transaminitis Discharge Diagnosis 11/25/22 Weight disorder Discharge Diagnosis 11/25/22 Prediabetes Discharge Diagnosis 11/25/22 Procedures Procedure Date Related Diagnosis Body Site [...] oldest [Reference Range]: 1 Height 175.3 cm (11/25/22 2:55 PM) Patient Weight 116.8 kg (11/25/22 2:55 PM) Body Mass Index 38.01 kg/m2 (11/25/22 2:55 PM) Temperature [36.5-37.9 DegC] 36.7 DegC (11/25/22 2:55 PM) Heart Rate 72 bpm (11/25/22 2:55 PM) Blood Pressure 128/72mmHg (11/25/22 2:55 PM) Social History Social History Type Response Tobacco Current every day sm oker, vaping Smoking Status Never smoked cigaret juan Sex Female Patient Care team information Personnel Name: MD Matthew Madhavi Address: Address: [facility]0 [address]
--- OUTSIDE RECORDS SUMMARY | 2023-06-01 01:48 | External Medical Summary | Continuity of Care Document ---
Author Name Unknown Organization [place] [address] [place] [id number] Care Team Providers Care Acid Regenerator Name Role Phone MatthewSarahi Primary Care Physician [phone] [id number] Date(s): 08/25/22 - 08/25/22 [facility] [address] [place] [address] 207 [facility] Practice Site 1850 [facility], [facility] 207 [place], [place] [address] [phone] Encounter Diagnosis Other abnormalities of breathing(Final) - Acute upper respiratory infection, unspecified(Final) - Viral URI with cough(Discharge Diagnosis) - 08/25/22 Decreased lung sounds(Discharge Diagnosis) - 08/25/22 Discharge Disposition: Home or Self Care Attending Physician: [facility] Allergies, Adverse Reactions, Alerts Substance Reaction Severity Status Zomig peripheral numbness/tingling Active Imitrex peripheral neuropathic symptoms Active Assessment and Plan Extracted from: Title:Office Visit Note - VIral URI Author:Alpa villegas DO, Alonna Paige Date:08/25/22 1.Viral URI with cough - Acute, 4 days of cough, sinus pressure, and sore throat - Patient afebrile, normal oxygenation - Suspect Viral URI - Recommend use of OTC Nasal Corticosteroid (Flonase) and antihistamine (Estee, Zyrtec, or Claritin) - Discussed Erika pot and nasal saline rinses for additional comfort - Willconsider Tessalon Perles if cough persists - Encouraged adequate hydration (64 ounces of water daily) - Patient advised to call if symptoms worsen or if temperature > 38C 2.Decreased lung sounds - Diminished air movement in bilateral lung bases - Suspect a/w smoking hx and underlying lung disease - Provided Rx for Prednisone 40 mg for 5 days - Patient advised to return to office of dyspnea develops or cough persists Immunizations Given and Recorded Vaccine Date Status [...] 1 tablet by mouth once daily, Pharmacy: [facility] Start Date: 03/11/22 Status: Ordered Botox. Start: 07/01/22 15:52:00 EDT Start Date: 07/01/22 Status: Ordered Fioricet 325 mg-50 mg-40 mg oral tablet Start: 07/31/22 11:05:00 EDT, 1 tab, PO, q6h, Disp# 30 tab, Refills: 0, PRN: as needed for headache, Pharmacy: [facility] #[id number] Start Date: 07/31/22 Status: Ordered FLUoxetine 20 mg oral capsule Start: 05/13/22 11:41:00 EDT, See Instructions, Disp# 30 cap, Refills: 5, take 1 capsule by mouth once daily, Pharmacy: [id number] Start Date: 05/13/22 Status: Ordered Nurtec ODT 75 mg oral tablet, disintegrating Start: 07/01/22 15:52:00 EDT Start Date: 07/01/22 Status: Ordered predniSONE 20 mg oral tablet Start: 08/25/22 10:35:00 EST, 2 tab, PO, Daily, Disp# 10 tab, X 5 day, Stop: 08/30/22 10:35:00 EST,Pharmacy: [facility]/pharmacy #[id number] Start Date: 08/25/22 Stop Date: 08/30/22 Status: Ordered Topamax 50 mg oral tablet Start: 07/01/22 16:10:00 EDT, See Instructions, Disp# 60 cap, 150 mg capsule XR, other Start Date: 07/01/22 Status: Ordered Voltaren 1% topical gel Start: 07/01/22 16:48:00 EDT, 1 appl, topical, qid, Disp# 100 g, PRN: Pain, Pharmacy: [facility] #[id number] Start Date: 07/01/22 Status: Ordered Mental Status 08/25/22 Barriers to Learning one year None evide nt Mandatory Health Literacy Documentation Yes Health Literacy Communication Barriers N ever Primary Language Gabonese Problem List Condition Confirmation Course Effective Dates Status Health St atus Informant Benign hypertension Confirmed Active Patellar contusion Confirmed Active Hamstring strain Confirmed Active Left knee pain Confirmed Active MIGRAINE Confirmed Active Patellar tendonitis Confirmed Active Tobacco abuse Confirmed Active Weight disorder Confirmed Active Diagnosis Diagnosis Type Effective Dates Health Status Cl inical Service Informant Viral URI with cough Discharge Diagnosis 08/25/22 Non-Specified Decreased lung sounds Discharge Diagnosis 08/25/22 Non-Specified Procedures Procedure Date Related Diagnosis Body Site Status Hysterectomy 1 12/11/13 Completed Pap smear for cervical cance r screening 2 10/23/13 Completed dental Completed Endometrial ablation Comp leted Laparoscopic bilateral oophorectomy Completed 1Diagnostic Hysteroscopy NovaSure endometrial ablation Bilateral laparoscopic tubal ligation 2wnl/repeat 1 yr Results Laboratory List Name Date COVID-19 Coronavirus Same Day (COVID19 S YOHANA DAY) 08/25/22 Most recent to oldest [Reference Range]: 1 COVID-19 Coronavirus PCR [COV19N] COVID 19 virus not detected 1 *Unknown* (08/25/22 12:06 PM) 1Result Comment: Test results reported to [place] [facility] This assay has been granted an Emergency Use Authorization (EUA) by the [place] Food and drug Administration: Specimen source Nasopharyngeal. The performance of giovani assay (NeuMoDx by PCR) has been verified by the [facility]. Vital Signs Most recent to oldest [Reference Range]: 1 Temperature [36.5-37.9 DegC] 36.4 DegC *LOW* (08/25/22 9:53 AM) Heart Rate 71 bpm (08/25/22 9:53 AM) Respiratory Rate 12 br/min (08/25/22 9:53 AM) Blood Pressure 128/82mmHg (08/25/22 9:53 AM) Cuff Pulse Pressure 46 mmHg (08/25/22 9:53 AM) Social History Social History Type Response Smoking Status Never smoked cigaret juna Sex Female Patient Care team information Personnel Name: MD Matthew Madhavi Address: Address: [facility] [address] [address]
--- OUTSIDE RECORDS SUMMARY | 2023-06-01 01:48 | External Medical Summary | Continuity of Care Document ---
Author Name Unknown Organization [facility] [address] [place] [address] [address] [id number] Care Team Providers Care Family Physician Name Role Phone Sarahi Matthew Primary Care Physician [phone] Encounter [facility] [id number] Date(s): 07/01/22 - 07/01/22 [facility] 0 E [facility] 207 [facility] Practice Site 1850 [facility], [facility] 207 [place], [place] [address]Nqdkd [phone] Encounter Diagnosis Patellofemoral syndrome(Discharge Diagnosis) - 07/01/22 MIGRAINE(Discharge Diagnosis) - 07/01/22 Right knee pain(Discharge Diagnosis) - 07/01/22 Left knee pain(Discharge Diagnosis) - 07/01/22 Discharge Disposition: Home or Self Care Attending Physician: MD Marie Jonathan D Allergies, Adverse Reactions, Alerts Substance Reaction Severity Status Zomig peripheral numbness/tingling Active Imitrex peripheral neuropathic symptoms Active Assessment and Plan Extracted from: Title:Office Visit Note Author:MD Lars, Madelaine fox Date:07/01/22 1.Patellofemoral syndrome Patient reports bilateral knee pain that started about 4 years ago after a fall. She had PT at that time which provided minimal to no improvement. Patient has crepitus on exam and bilateral patellar facet tenderness. Ordered imaging today and Lyme studies. Symptoms are consistent with patellofemoral syndrome. Recommended stiff leg lifts with foot turned out. Can try topical voltaren gel and Tylenol. Can try Aleve if Tylenol fails to provide relief. Recommended she try exercises for 6 weeks and if there is no improvement of symptoms f/u and can consider ortho referral. 2.Left knee pain See above. Ordered: XR Knee Complete 4+ Views Left XR Knee Complete 4+ Views Right 3.Right knee pain See above. Ordered: XR Knee Complete 4+ Views Left XR Knee Complete 4+ Views Right 4.MIGRAINE Migraines are being managed by Neurology. Patient on botox injections every 3 months, atenolol, topamax, and prozac. Orders: diclofenac topical, Start: 07/01/22 16:48:00 EDT, 1 appl, topical, qid, Disp# 100 g, PRN: Pain, Pharmacy: [facility] [place] #[id number] topiramate, Start: 07/01/22 16:10:00 EDT, See Instructions, Disp# 60 cap, 150 mg capsule XR, other I separately obtained a brief history and exam on this patient, discussed the case with and agree with the assessment and plan of Dr. Sousa. Immunizations Given and Recorded Vaccine Date Status [...] 1 tablet by mouth once daily, Pharmacy: [id number] Start Date: 03/11/22 Status: Ordered Botox. Start: 07/01/22 15:52:00 EDT Start Date: 07/01/22 Status: Ordered Fioricet 325 mg-50 mg-40 mg oral tablet Start: 06/23/22 15:47:00 EDT, 1 tab, PO, q6h, Disp# 30 tab, Refills: 0, PRN: as needed for headache, Pharmacy: [facility] #[id number] Start Date: 06/23/22 Status: Ordered FLUoxetine 20 mg oral capsule Start: 05/13/22 11:41:00 EDT, See Instructions, Disp# 30 cap, Refills: 5, take 1 capsule by mouth once daily, Pharmacy: [facility] #[id number] Start Date: 05/13/22 Status: Ordered Nurtec ODT 75 mg oral tablet, disintegrating Start: 07/01/22 15:52:00 EDT Start Date: 07/01/22 Status: Ordered Topamax 50 mg oral tablet Start: 07/01/22 16:10:00 EDT, See Instructions, Disp# 60 cap, 150 mg capsule XR, other Start Date: 07/01/22 Status: Ordered Voltaren 1% topical gel Start: 07/01/22 16:48:00 EDT, 1 appl, topical, qid, Disp# 100 g, PRN: Pain, Pharmacy: [facility] [place] #[id number] Start Date: 07/01/22 Status: Ordered Mental Status 07/01/22 Barriers to Learning one year None evide nt Mandatory Health Literacy Documentation Yes Health Literacy Communication Barriers N ever Primary Language Polish Problem List Condition Confirmation Course Effective Dates Status Health St atus Informant Benign hypertension Confirmed Active Patellar contusion Confirmed Active Hamstring strain Confirmed Active Left knee pain Confirmed Active MIGRAINE Confirmed Active Patellar tendonitis Confirmed Active Tobacco abuse Confirmed Active Weight disorder Confirmed Active Diagnosis Diagnosis Type Effective Dates Health Status Clinical Service Informant Right knee pain Discharge Diagnosis 07/01/22 MIGRAINE Discharge Diagnosis 07/01/22 Patellofemoral syndrome Discharge Diagnosis 07/01/22 Left knee pain Discharge Diagnosis 07/01/22 Procedures Procedure Date Related Diagnosis Body Site Status Hysterectomy 1 12/11/13 Completed Pap smear for cervical cance r screening 2 10/23/13 Completed dental Completed Endometrial ablation Comp leted Laparoscopic bilateral oophorectomy Completed 1Diagnostic Hysteroscopy NovaSure endometrial ablation Bilateral laparoscopic tubal ligation 2wnl/repeat 1 yr Vital Signs Most recent to oldest [Reference Range]: 1 Patient Weight 121.9 kg (07/01/22 3:57 PM) Temperature [36.5-37.9 DegC] 36.7 DegC (07/01/22 3:57 PM) Respiratory Rate 18 br/min (07/01/22 3:57 PM) Blood Pressure 132/96mmHg (07/01/22 3:57 PM) Cuff Pulse Pressure 36 mmHg (07/01/22 3:57 PM) Social History Social History Type Response Smoking Status Never smoked cigaret juan Sex Female Patient Care team information Personnel Name: MD Matthew Madhavi Address: Address: [address] [place] [address]
--- OUTSIDE RECORDS SUMMARY | 2023-06-01 01:48 | External Medical Summary | Continuity of Care Document ---
Author Name Unknown Organization [address] Address [address] [id number] Care Team Providers Care Rn Clinical Documentation Specialist Name Role Phone Chu Mcmanus Primary Care Physician [phone] [facility] [id number] Date(s): 01/04/23 - 01/04/[address] [facility] 0 [facility] 207 [facility] Practice Site 1850 [facility], [facility] 207 [place], [place] [address]Gbvjt [phone] Encounter Diagnosis Postconcussion syndrome(Discharge Diagnosis) - 01/04/23 Dizziness(Discharge Diagnosis) - 01/04/23 Discharge Disposition: Home or Self Care Attending Physician: MD Mcmanus Christopher Allergies, Adverse Reactions, Alerts Substance Reaction Severity Status Zomig peripheral numbness/tingling Active Imitrex peripheral neuropathic symptoms Active Assessment and Plan Extracted from: Title:FCM - T - Dizziness Author:MD Yonathan, [facility] missael Date:01/04/23 1.Postconcussion syndrome Acute w/ systemic symptoms or complicated injury Goal:resolution Data: neurology note from [facility], CT head from previous visit, last set of labs Plan: - reviewed symptoms and potential causes, as well as limitations of telemed visit - based on clinical course and description, appears c/w BPPV vs. sequelae of concussion - ondansetron for nausea, use of meclizine reviewed - f/u in 1 wk if symptoms not resolved, ideally in person with precautions for worsening/changing symptoms and instructions for follow up. 2.Dizziness as above Immunizations Given and Recorded Vaccine Date Status [...] Daily, Disp# 90 tab, Refills: 3, Pharmacy: [facility]/pharmacy #[id number] Start Date: 10/07/22 Status: Ordered Botox. Start: 07/01/22 15:52:00 EDT Start Date: 07/01/22 Status: Ordered Fioricet 325 mg-50 mg-40 mg oral tablet Start: 12/15/22 16:14:00 EDT, 1 tab, PO, q6h, Disp# 30 tab, Refills: 0, PRN: as needed for headache, Pharmacy: [facility]/pharmacy #[id number] Start Date: 12/15/22 Status: Ordered FLUoxetine 20 mg oral capsule Start: 10/28/22 16:57:00 EST, 1 cap, PO, Daily, Disp# 90 cap, Refills: 3, Pharmacy: [facility]/pharmacy #[id number] Start Date: 10/28/22 Stop Date: 10/23/23 [...] to Pharmacy: please call patient KATHY -, Pharmacy:[facility]/pharmacy #[id number] Start Date: 10/05/22 Stop Date: 09/30/23 [...] qid, Disp# 100 g, PRN: Pain, Pharmacy: [facility] #[id number] Start Date: 07/01/22 Status: Ordered Zofran 4 mg oral tablet Start: 10/05/22 11:45:00 EST, 1 tab, PO, bid, Disp# 30 tab, Refills: 1, PRN: as needed for nausea/vomiting, Pharmacy: [facility]/pharmacy #[id number] Start Date: 10/05/22 Stop Date: 10/25/22 Status: Ordered Mental Status 01/04/23 Barriers to Learning one year None evide nt Mandatory Health Literacy Documentation Yes Health Literacy Communication Barriers N ever Primary Language Armenian Problem List Condition Confirmation Course Effective Dates Status Health St atus Informant Benign hypertension Confirmed Active MIGRAINE Confirmed Active Patellar tendonitis Confirmed Active Prediabetes Confirmed Active Tobacco abuse Confirmed Active Weight disorder Confirmed Active Diagnosis Diagnosis Type Effective Dates Health Status Clinical Service Informant Dizziness Discharge Diagnosis 01/04/23 Postconcussion syndrome Discharge Diagnosis 01/04/23 Procedures Procedure Date Related Diagnosis Body Site [...] Bilateral laparoscopic tubal ligation 4wnl/repeat 1 yr Social History Social History Type Response Tobacco Current every day sm oker, vaping Smoking Status Never smoked cigaret juan Sex Female FCM Outpt Note * MD Yonathan, Chu: PERFORM Event Display: FCM Outpt Note Authored Date: TeleHealth Visit Note I have confirmed the patients name and date of . The patient has consented to this service,and I have advised the patient that this is a billable visit for which they may be subject to a copay. [x ] The patient has initiated this visit after he/she was informed of the availability of telehealth for this medically necessary visit. [ _ ] The provider initiated this visit after explaining the need for this visit to the patient, who has consented to this virtual visit. I am located at my: [x ] Office [ _ ] Home [ _ ] Other: _ The patient is located at: [x ] Home [ _ ] Other: _ This visit was conducted via live audio/video technology: [x ] [facility] [ _ ] Zoom This visit was conducted via [ _ ] Telephone, and was not related to a visit or procedure that occurred within the past 7 days. Telephone Only Visit: Reason for audio only visit was [ _ ] no internet connection available [ _ ] Other: _. Total time spent communicating with the patient:23 minutes Chief Complaint concussion follow up- pain and vertigo comes and goes History of Present Illness Postconcussive syndrome x 2 wks - headache has returned to baseline migraine - intermittent vertigo symptoms onset following concussion 2 weeks ago with fall backwards down steps - daily/every other day symptoms lasting hours to the day - resolves with sleep, though laying down in bed worsens symptoms initially - accompanied by constant nausea w/ symptoms and vomiting - symptoms are also triggered from using screens (playing candy crush), rolling over - aching pain of the tailbone present since the fall, worse with direct pressure/activity - reports no visual changes (ophthalmology checked last week and OK), no hearing changes, numbness/tingling/weakness - nausea improves with zofran, hasn't taken meclizine (though it was prescribed) Physical Exam General: _Alert and oriented, No acute distress Psych: Mood-affect congruence. Reports no SI/HI. Speech is of normal pace and content Neurologic:CN II-XII grossly intact. Assessment/Plan 1.Postconcussion syndrome Acute w/ systemic symptoms or complicated injury Goal:resolution Data: neurology note from [facility], CT head from previous visit, last set of labs Plan: - reviewed symptoms and potential causes, as well as limitations of telemed visit - based on clinical course and description, appears c/w BPPV vs. sequelae of concussion - ondansetron for nausea, use of meclizine reviewed - f/u in 1 wk if symptoms not resolved, ideally in person with precautions for worsening/changing symptoms and instructions for follow up. 2.Dizziness as above Problem List/Past Medical History Ongoing Benign hypertension MIGRAINE Patellar tendonitis Prediabetes Tobacco abuse Weight disorder Historical Hamstring strain Procedure/Surgical History CT of head without contrast (12/22/2022)US scan of right upper abdomen (10/14/2022)Hysterectomy (12/11/2013)Pap smear for cervical cancer screening (10/23/2013)dentalEndometrial ablationLaparoscopic bilateral oophorectomy Medications atenolol 100 mg oral tablet, 100 mg= 1 tab, PO, Daily, 3 refills Botox. Fioricet 325 mg-50 mg-40 mg oral tablet, 1 tab, PO, q6h, PRN FLUoxetine 20 mg oral capsule, 20 mg= 1 cap, PO, Daily, 3 refills multivitamin, 1 tab, PO, Daily Nurtec ODT 75 mg oral tablet, disintegrating omeprazole 20 mg oral delayed release capsule, 20 mg= 1 cap, PO, Daily, 5 refills Probiotic Formula topiramate 150 mg oral capsule, extended release, 150 mg= 1 cap, PO, Daily, 11 refills topiramate 50 mg oral tablet, See Instructions, 2 refills Voltaren 1% topical gel, 1 appl, topical, qid, PRN Zofran 4 mg oral tablet, 4 mg= 1 tab, PO, bid, PRN, 1 refills Allergies Imitrex(peripheral neuropathic symptoms) Zomig(peripheral numbness/tingling) Social History Smoking Status Never smoked cigarettes Alcohol - Medium Risk Employment/School Employed, Work/School description: [employer] 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 Home/Environment Lives with Spouse. - Comments: son - 9 Substance Abuse - Denies Substance Abuse Tobacco - Medium Risk Current every day smoker, vaping Family History Migraine: Mother. Immunizations Vaccine Date Status influenza virus vaccine, inactivated 10/26/2022 Given SARS-CoV-2 (COVID-19) mRNA-1273 vaccine 01/23/2021 Recorded Comments : 2021-11-12: Historical information-source unspecified SARS-CoV-2 (COVID-19) mRNA-1273 vaccine 12/25/2020 Recorded Comments : 2021-11-12: Historical information-source unspecified influenza virus vaccine, inactivated 08/01/2018 Given Recommendations Health Maintenance Pending(in the next year) Due Adult COVID-19 Vaccination due01/04/23Unknown Frequency Adult Tdap/Td Vaccine due01/04/23Unknown Frequency Breast Cancer Screening due01/04/23Unknown Frequency Colorectal Cancer Screening due01/04/23Unknown Frequency Pneumococcal Vaccine Adults and Adolescents with Chronic Illness due01/04/23One-time only Shingles Vaccine due01/04/23One-time only Due In Future Adult Influenza Vaccine not due until03/27/23and every 1year Body Mass Index not due until12/22/23and every 1year Satisfied(in the past 1 year) Satisfied Adult Influenza Vaccine on10/26/22.Satisfied by GARRICK Smith Katrina Body Mass Index on12/22/22.Satisfied by GALE Merrill Courtney Hepatitis C Screening on10/23/22.Satisfied by [employer]system, [email or web address] Lipid Screening on11/20/22.Satisfied by [employer], [id number] Electronic Signature on File Electronically Reviewed/Signed by: Chu Mcmanus MD Author Signature Dt/Tm:01/04/2023 05:04 PM Department of Family Medicine Patient Care team information Care Team Personnel Name: MD Mcmanus Christopher Position: Physician - Family Med Member Role: Primary Care Provider Address: Address: [address] [place] [address] [place] Care Team Related Persons Name: GEORGE WEST Address: home No Address Provided
--- OUTSIDE RECORDS SUMMARY | 2023-06-01 01:49 | External Medical Summary | Continuity of Care Document ---
Author Name Unknown Organization [facility] [address] [place] [address] [address] [phone] Care Team Providers Care Post Hole Digger Name Role Phone Sarahi Matthew Primary Care Physician [phone] Encounter [facility] [id number] Date(s): 10/14/20 - 10/14/20 [facility] 0 [facility] Practice Site 1850 [facility], [address] [place], [place] [address]Hjpuj [phone] Encounter Diagnosis Migraine(Discharge Diagnosis) - 10/14/20 Discharge Disposition: Home or Self Care Attending Physician: DO Packer Franklin J Allergies, Adverse Reactions, Alerts Substance Reaction Severity Status Zomig peripheral numbness/tingling Active Imitrex peripheral neuropathic symptoms Active Assessment and Plan Extracted from: Title:Office Visit Note Author:DO Chang Mari na Date:10/14/20 Migraine Chronic condition, stable Goal: Resolution Data: unique tests reviewed:BMP without abnormalities, CRP mild elevation with normal ESR, TSH normal Plan: Continue taper of Topamax, try Maxakt and see if adequate for migraine abortive, follow up in 1 month following Neurology referral visit. Orders: rizatriptan, Start: 10/14/20 17:41:00 EST, 1 tab, PO, ONCE, Disp# 9 tab, PRN: as needed for migraine headache, Pharmacy: [address] ATTENDING:I reviewed the clinical history and exam findings and discussed the case with the resident. I agree with the impression and plan as noted above. Immunizations Given and Recorded Vaccine Date Status Refusal Reason influenza virus vaccine, inactivated 08/01/18 Give n Medications amitriptyline 10 mg oral tablet Start: 10/01/20 15:02:00 EST, 1 tab, PO, qhs, Disp# 30 tab, Refills: 2, Pharmacy: [address] Start Date: 10/01/20 Status: Ordered atenolol 100 mg oral tablet Start: 07/18/20 14:57:00 EDT, See Instructions, Disp# 30 tab, Refills: 2, take 1 tablet by mouth once daily, Pharmacy: [address] Start Date: 07/18/20 Status: Ordered Fioricet 325 mg-50 mg-40 mg oral tablet Start: 10/01/20 15:12:00 EST, 1 tab, PO, q6h, Disp# 30 tab, Refills: 1, PRN: as needed for headache, Pharmacy: [address] Start Date: 10/01/20 Status: Ordered Fioricet oral tablet Start: 08/01/18 10:14:51 EST, See Instructions, Disp# 50 tab, Refills: 1, 1-2 tabs q 6 hr for severe headache, PRN: as needed for pain Start Date: 08/01/18 Status: Ordered FLUoxetine 20 mg oral capsule Start: 07/18/20 14:57:00 EDT, See Instructions, Disp# 30 cap, Refills: 2, take 1 capsule by mouth once daily, Pharmacy: [address] Start Date: 07/18/20 Status: Ordered Maxalt 5 mg oral tablet Start: 10/14/20 17:41:00 EST, 1 tab, PO, ONCE, Disp# 9 tab, PRN: as needed for migraine headache, Pharmacy: [address] Start Date: 10/14/20 Status: Ordered topiramate 50 mg oral tablet Start: 07/18/20 14:57:00 EDT, See Instructions, Disp# 60 tab, Refills: 2, take 25 milligrams every 12 hours, Pharmacy: [address] Start Date: 07/18/20 Status: Ordered Mental Status 10/14/20 Barriers to Learning one year None evide [...] Dates Health Status Clini yanni Service Informant Migraine Discharge Diagnosis 10/14/20 Non-Specified Procedures Procedure Date Related Diagnosis Body Site Status Hysterectomy 1 12/11/13 Completed Pap smear for cervical cance r screening 2 10/23/13 Completed dental Completed Endometrial ablation Comp leted Laparoscopic bilateral oophorectomy Completed 1Diagnostic Hysteroscopy NovaSure endometrial ablation Bilateral laparoscopic tubal ligation 2wnl/repeat 1 yr Vital Signs Most recent to oldest [Reference Range]: 1 Temperature [36.5-38 DegC] 36.8 DegC (10/14/20 5:25 PM) Heart Rate 74 bpm (10/14/20 5:25 PM) Respiratory Rate 18 br/min (10/14/20 5:25 PM) Blood Pressure 140/80mmHg (10/14/20 5:25 PM) Cuff Pulse Pressure 60 mmHg (10/14/20 5:25 PM) Social History Social History Type Response Smoking Status Current every day he hilda smoker Sex Female
--- OUTSIDE RECORDS SUMMARY | 2023-06-01 01:49 | External Medical Summary | Continuity of Care Document ---
Author Name Unknown Organization [facility] [address] [address] [place] [phone] Care Team Providers Care Veterinary Nurse Name Role Phone Sarahi Matthew Primary Care Physician [phone] Encounter [facility] [id number] Date(s): 02/06/21 - 02/06/21 [facility] [address] [place] [address] Practice Site 1850 [facility], [facility] 207 [place], [place] [address]Pbwgd [phone] Encounter Diagnosis Migraine(Discharge Diagnosis) - 02/06/21 Discharge Disposition: Home or Self Care Attending Physician: MD Tracey Amy L Allergies, Adverse Reactions, Alerts Substance Reaction Severity Status Zomig peripheral numbness/tingling Active Imitrex peripheral neuropathic symptoms Active Assessment and Plan Extracted from: Title:TeleHealth Visit Note Author:DO Chang Marina Date:02/06/21 Migraine Chronic condition, stable Goal:Continued control Plan: Continue current medications as patient has good control as compared to prior to amitriptyline. Follow up 6 months Orders: topiramate, Start: 02/06/21 10:06:00 EDT, 1.5 tab, PO, Daily, Disp# 45 tab, Refills: 11, Pharmacy: [address] Immunizations Given and Recorded Vaccine Date Status Refusal Reason influenza virus vaccine, inactivated 08/01/18 Give n Medications amitriptyline 10 mg oral tablet Start: 12/23/20 12:07:00 EDT, 1 tab, PO, qhs, Disp# 30 tab, Refills: 2, Pharmacy: [address] Start Date: 12/23/20 Status: Ordered atenolol 100 mg oral tablet See Instructions, Disp# 30 tab, Refills: 0, take 1 tablet by mouth once daily, Pharmacy: [facility] [place] [address] Start Date: 02/04/21 Status: Ordered Fioricet 325 mg-50 mg-40 mg oral tablet Start: 01/06/21 14:09:00 EDT, 1 tab, PO, q6h, Disp# 30 tab, Refills: 1, PRN: as needed for headache, Pharmacy: [address] Start Date: 01/06/21 Status: Ordered FLUoxetine 20 mg oral capsule See Instructions, Disp# 30 cap, Refills: 0, take 1 capsule by mouth once daily, Pharmacy: [facility] [place] [address] Start Date: 02/04/21 Status: Ordered Maxalt 5 mg oral tablet Start: 10/14/20 17:41:00 EST, 1 tab, PO, ONCE, Disp# 9 tab, PRN: as needed for migraine headache, Pharmacy: [address] Start Date: 10/14/20 Status: Ordered topiramate 50 mg oral tablet Start: 02/06/21 10:06:00 EDT, 1.5 tab, PO, Daily, Disp# 45 tab, Refills: 11, [facility] Start Date: 02/06/21 Stop Date: 02/01/22 Status: Ordered Mental Status 02/06/21 Barriers to Learning one year None evide [...] Clini yanni Service Informant Migraine Discharge Diagnosis 02/06/21 Non-Specified Procedures Procedure Date Related Diagnosis Body [...]
--- OUTSIDE RECORDS SUMMARY | 2023-06-01 01:49 | External Medical Summary | Continuity of Care Document ---
Author Name Unknown Organization [place] [address] [address] [address] Care Team Providers Care Insurance Risk Analyst Name Role Phone Sarahi Matthew Primary Care Physician [phone] Encounter [facility] [phone] Date(s): 10/01/20 - 10/01/20 [facility] [address] [facility], [facility] [address] [place], [place] [address]Ahvsi [phone] Encounter Diagnosis Headache(Discharge Diagnosis) - 10/01/20 Encounter for screening for lipoid disorders(Final) - Migraine, unspecified, not intractable, without status migrainosus(Final) - Headache, unspecified(Final) - Migraine(Discharge Diagnosis) - 10/01/20 Lipid screening(Discharge Diagnosis) - 10/01/20 Diabetes mellitus screening(Discharge Diagnosis) - 10/01/20 Colon cancer screening(Discharge Diagnosis) - 10/01/20 Discharge Disposition: Home or Self Care Attending Physician: MD Marei Jonathan D Allergies, Adverse Reactions, Alerts Substance Reaction Severity Status Zomig peripheral numbness/tingling Active Imitrex peripheral neuropathic symptoms Active Assessment and Plan Extracted from: Title:Office Visit Note Author:DO Chang Mari na Date:10/01/20 1.Migraine Chronic condition exacerbated/progressive/side effects of treatment Goal:Resolution/Improvement Data:unique tests ordered:BMP, TSH, ESR, CRP Plan: 55 yo F with migraine despite several abortive and prophylactic therapies as above. - Will send for small prescription of Maxalt 5mg PRN for migraine abortive. Patient will let me know if this medication causes ADRs. - Will also send for PRN Fioricet. - Will send referral for [facility] for [place] consult. - Patient will do research on Botox and Ajovy medications and see if insurance covers these. - Amitriptyline 10mg qHS to start today. - Will decrease Topamax to 25mg AM, 50mg PM for two week.s - Follow up in 2 weeks in-person to discuss medication changes and progress. - Have advised to stop taking Tylenol regularly to determine if headaches are secondary to chronic daily headache. 2.Lipid screening - Due for lipid screening. Have ordered lipid panel. 3.Diabetes mellitus screening - Fasting BSG included in BMP, will evaluate. 4.Colon cancer screening - Cologuard testing ordered, patient is at average risk of colon cancer. Orders: amitriptyline, Start: 10/01/20 15:02:00 EST, 1 tab, PO, qhs, Disp# 30 tab, Refills: 2, Pharmacy: [address] [place]. Mammo Digital Screening Bilateral I separately obtained a brief history and exam on this patient, discussed the case with and agree with the assessment and plan of Dr. Chang. Immunizations Given and Recorded Vaccine Date Status Refusal Reason influenza virus vaccine, inactivated 08/01/18 Give n Medications amitriptyline 10 mg oral tablet Start: 10/01/20 15:02:00 EST, 1 tab, PO, qhs, Disp# 30 tab, Refills: 2, Pharmacy: [address] Start Date: 10/01/20 Status: Ordered atenolol 100 mg oral tablet Start: 07/18/20 14:57:00 EDT, See Instructions, Disp# 30 tab, Refills: 2, take 1 tablet by mouth once daily, Pharmacy: [address] Start Date: 07/18/20 Status: Ordered Fioricet 325 mg-50 mg-40 mg oral tablet Start: 10/01/20 15:12:00 EST, 1 tab, PO, q6h, Disp# 30 tab, Refills: 1, PRN: as needed for headache, Pharmacy: [address] Start Date: 10/01/20 Status: Ordered Fioricet oral tablet Start: 08/01/18 10:14:51 EST, See Instructions, Disp# 50 tab, Refills: 1, 1-2 tabs q 6 hr for severe headache, PRN: as needed for pain Start Date: 08/01/18 Status: Ordered FLUoxetine 20 mg oral capsule Start: 07/18/20 14:57:00 EDT, See Instructions, Disp# 30 cap, Refills: 2, take 1 capsule by mouth once daily, Pharmacy: [facility] [place] [address] Start Date: 07/18/20 Status: Ordered topiramate 50 mg oral tablet Start: 07/18/20 14:57:00 EDT, See Instructions, Disp# 60 tab, Refills: 2, take 1 tablet by mouth twice a day, Pharmacy: [facility] [place] [address] Start Date: 07/18/20 Status: Ordered Mental Status 10/01/20 Barriers to Learning one year None evide [...] Dates Health Status Cl inical Service Informant Lipid screening Discharge Diagnosis 10/01/20 Non-Specified Migraine Discharge Diagnosis 10/01/20 Non-Specified Headache Discharge Diagnosis 10/01/20 Non-Specified Diabetes mellitus screening Discharge Diagnosis 10/01/20 Non-Specified Colon cancer screening Discharge Diagnosis 10/01/20 Non-Specified Procedures Procedure Date Related Diagnosis Body Site Status Hysterectomy 1 12/11/13 Completed Pap smear for cervical cance r screening 2 10/23/13 Completed dental Completed Endometrial ablation Comp leted Laparoscopic bilateral oophorectomy Completed 1Diagnostic Hysteroscopy NovaSure endometrial ablation Bilateral laparoscopic tubal ligation 2wnl/repeat 1 yr Results Laboratory List Name Date Basic Metabolic Panel (BASIC METAB PANEL ) 10/01/20 C Reactive Protein, Quantitation (CRP QU ANTITATION) 10/01/20 Erythrocyte Sedimentation Rate (SEDIMENT ATION RATE) 10/01/20 Lipid Profile (LIPOPROTEINS) 10/01/20 Thyroid Stimulating Hormone (TSH) 10/01/20 Most recent to oldest [Reference Range]: 1 CReacProt [<0.50 mg/dL] 0.73 mg/dL *HI* (10/01/20 3:11 PM) Non-HDL 129 mg/dL 1 (10/01/20 3:11 PM) Estimated CrCl 97.55 mL/min (10/01/20 4:46 PM) Estimated GFR, Black Race [>60 mL/min/1. 73 m2] >60 mL/min/1.73 m2 (10/01/20 3:11 PM) Estimated GFR, non-Black Race [>60 mL/mi n/1.73 m2] >60 mL/min/1.73 m2 2 (10/01/20 3:11 PM) Anion Gap [5-14 mmol/L] 6 mmol/L (10/01/20 3:11 PM) BUN [7-20 mg/dL] 12 mg/dL (10/01/20 3:11 PM) Ca [8.4-10.2 mg/dL] 9.1 mg/dL (10/01/20 3:11 PM) Chol/HDL 3 (10/01/20 3:11 PM) Chol [125-200 mg/dL] 203 mg/dL *HI* (10/01/20 3:11 PM) Cl- [96-107 mmol/L] 107 mmol/L (10/01/20 3:11 PM) HCO3 [22-30 mmol/L] 27 mmol/L (10/01/20 3:11 PM) Cret [0.60-1.00 mg/dL] 0.85 mg/dL (10/01/20 3:11 PM) ESR [0-30 mm/hr] 7 mm/hr 3 (10/01/20 3:11 PM) Glu [74-106 mg/dL] 105 mg/dL (10/01/20 3:11 PM) HDL [>35 mg/dL] 74 mg/dL (10/01/20 3:11 PM) K [3.5-5.1 mmol/L] 4.1 mmol/L (10/01/20 3:11 PM) LDL Chol, Calculated [50-130 mg/dL] 106 mg/dL (10/01/20 3:11 PM) Na [137-145 mmol/L] 140 mmol/L (10/01/20 3:11 PM) TG [<200 mg/dL] 115 mg/dL (10/01/20 3:11 PM) TSH [0.47-4.68 uIU/mL] 1.24 uIU/mL 4 (10/01/20 3:11 PM) 1Result Comment: Testing Performed By: Dept of Pathology [facility] [address], [address], [place] [address] 2Result Comment: Testing Performed By: Dept of Pathology [facility] [address], [address], [place] [address] 3Result Comment: Testing Performed By: Dept of Pathology [facility] [address], [address], [place] [address] 4Result Comment: Testing Performed By: Dept of Pathology [facility] [address], [address], [place] [address] Vital Signs Most recent to oldest [Reference Range]: 1 Height 175 cm (10/01/20 1:57 PM) Patient Weight 115 kg (10/01/20 1:57 PM) Temperature [36.5-38 DegC] 36.9 DegC (10/01/20 1:57 PM) Heart Rate 88 bpm (10/01/20 1:57 PM) Respiratory Rate 18 br/min (10/01/20 1:57 PM) Blood Pressure 138/82mmHg (10/01/20 1:57 PM) Cuff Pulse Pressure 56 mmHg (10/01/20 1:57 PM) Social History Social History Type Response Smoking Status Current every day he hilda smoker Sex Female
--- OUTSIDE RECORDS SUMMARY | 2023-06-01 01:49 | External Medical Summary | Continuity of Care Document ---
Author Name Unknown Organization [place] [address] [address] [place] [id number] Care Team Providers Care Airworthiness Safety Inspector Name Role Phone Sarahi Matthew Primary Care Physician [phone] Encounter [facility] [id number] Date(s): 11/20/20 - 11/20/20 [facility] [address] [facility], [facility] 207 [place], [place] [address] [phone] Encounter Diagnosis Migraine(Discharge Diagnosis) - 11/20/20 Discharge Disposition: Home or Self Care Attending Physician: MD Mcmanus Christopher Allergies, Adverse Reactions, Alerts Substance Reaction Severity Status Zomig peripheral numbness/tingling Active Imitrex peripheral neuropathic symptoms Active Assessment and Plan Extracted from: Title:TeleHealth Visit Note Author:DO Chang Marina Date:11/20/20 Migraine Chronic condition exacerbated/progressive/side effects of treatment Goal:Resolution/Improvement in symptoms Plan: Patient's symptoms initially improved with initiation of amitriptyline 10mg daily with Topamax 75mg daily. Symptoms worsened with decrease from Topamax 75mg to 50mg daily. Will increase Topamax to 75mg daily given better symptom management with that dose. Continue current dose of amitriptyline and fluoxetine. Patient will keep consult with Neurology which has been pushed back to mid-December and has ophthalmology appointment on December 03. Contacted pharmacy to ensure filling of Maxalt to try this for abortive management . Can also continue Fioricet prn. Follow up in 4 weeks. Immunizations Given and Recorded Vaccine Date Status Refusal Reason influenza virus vaccine, inactivated 08/01/18 Give n Medications amitriptyline 10 mg oral tablet Start: 10/01/20 15:02:00 EST, 1 tab, PO, qhs, Disp# 30 tab, Refills: 2, Pharmacy: [address] Start Date: 10/01/20 Status: Ordered atenolol 100 mg oral tablet Start: 10/25/20 9:54:00 EST, See Instructions, Disp# 30 tab, Refills: 2, take 1 tablet by mouth once daily, Pharmacy: [address] Start Date: 10/25/20 Status: Ordered Fioricet 325 mg-50 mg-40 mg oral tablet Start: 10/01/20 15:12:00 EST, 1 tab, PO, q6h, Disp# 30 tab, Refills: 1, PRN: as needed for headache, Pharmacy: [address] Start Date: 10/01/20 Status: Ordered Fioricet oral tablet Start: 08/01/18 10:14:51 EST, See Instructions, Disp# 50 tab, Refills: 1, 1-2 tabs q 6 hr for severe headache, PRN: as needed for pain Start Date: 08/01/18 Status: Ordered FLUoxetine 20 mg oral capsule Start: 10/25/20 9:54:00 EST, See Instructions, Disp# 30 cap, Refills: 2, take 1 capsule by mouth once daily, Pharmacy: [address] Start Date: 10/25/20 Status: Ordered Maxalt 5 mg oral tablet Start: 10/14/20 17:41:00 EST, 1 tab, PO, ONCE, Disp# 9 tab, PRN: as needed for migraine headache, Pharmacy: [address] Start Date: 10/14/20 Status: Ordered topiramate 50 mg oral tablet Start: 10/25/20 9:54:00 EST, See Instructions, Disp# 60 tab, Refills: 2, 75 mg daily in divided doses, 25mg AM 50mg PM, Pharmacy: [address] Start Date: 10/25/20 Status: Ordered Problem List Condition Effective Dates Status Health Status Inform ant Benign hypertension(Confirmed) Active Patellar contusion(Confirmed) Active Hamstring strain(Confirmed) Active Left knee pain(Confirmed) Active MIGRAINE(Confirmed) Active Patellar tendonitis(Confirmed) Active Tobacco abuse(Confirmed) Active Weight disorder(Confirmed) Active Diagnosis Diagnosis Type Effective Dates Health Status Clini yanni Service Informant Migraine Discharge Diagnosis 11/20/20 Non-Specified Procedures Procedure Date Related Diagnosis Body [...]
[2023-06-01 15:32] LABS: Anti Mitochondrial Antibody NEGATIVE (NEGATIVE); Anti Nuclear Antibody Screen NEGATIVE (NEGATIVE); HBSAG NON-REACTIVE (NON-REACTIVE); Hepatitis A Antibody IgM NON-REACTIVE (NON-REACTIVE); Hepatitis B Core Antibody IgM NON-REACTIVE (NON-REACTIVE)
== END 2023-05-28 17:21 | disposition home or self-care (01) | DRG 641 ==
LOC: ED 14:40 → EDINP 23:12 → SUATTDRO 23:12 → EDINP 05-27 01:37 → 2W 05-27 16:38